=== PATIENT | male | born 1945 | race Asian ===

== ENCOUNTER 2016-08-10 20:40 | Inpatient (IN) | payer OTHER, BC ==
--- NOTE | 2016-08-10 20:47 | PDOC ---
History of Present Illness <Angelika Hunt - Last Filed: 08/10/16 22:07> - General History Source: Patient, Spouse () Exam Limitations: No Limitations, Other - History of Present Illness Initial Comments: 08/10/16 21:10 The patient is a 71 year old male with significant past medical history of COPD , CAD, systolic CHF (mild systolic dysfunction), pulmonary HTN, ESRD (HD MWF), AVF left arm, NIDDM who presents to the ED with tongue swelling and difficulty swallowing prior to arrival. As per , at bedside, patient had dinner around 6pm and subsequently went to bed. Around 7:40 pm she heard strange sounds coming from the patient and initially ignored him because he normally snores and makes sounds while sleeping. However, after the second time she looked over to check on him and noted his mouth was open and his tongue was significantly swollen. She woke the patient up states patient had complaints of difficulty swallowing. reports inability to speak secondary to tongue swelling. denies any facial droop, SOB, and changes in food intake. states patient had goat for dinner. She states he started mirtazapine about 1 month ago and given him a dose of mirtazapine prior to going to bed. The patient denies fever, chills, cough, chest pain, and palpitations. The patient denies abdominal pain, nausea, vomiting, and diarrhea. Allergies: NKDA Social History: former smoker quit smoking 96 h/o 30 years smoking Past Surgical History: Cardiac catheterization (2011) PCP: Dr. Triston Oliver <Sharon Witt - Last Filed: 08/11/16 03:57> - General Stated Complaint: UNABLE TO SPEAK Past History - Past Medical History Anemia: No Asthma: No Cancer: No Cardiac Disorders: Yes (CAD) CVA: No COPD: Yes (EMPHYSEMA) CHF: No Dementia: No Diabetes: Yes (DM2) Dialysis: Yes (M-W-F) GI Disorders: No Disorders: No HTN: Yes Hypercholesterolemia: Yes Liver Disease: No Seizures: No Thyroid Disease: No - Surgical History Abdominal Surgery: No Appendectomy: No Cardiac Surgery: Yes (ANGIOGRAPHY 2008 IN [facility]) Cholecystectomy: No Lung Surgery: No Neurologic Surgery: No Orthopedic Surgery: No - Immunization History Immunization Up to Date: Yes - Psycho/Social/Smoking Cessation Hx Anxiety: No Suicidal Ideation: No Smoking History: Former smoker Have you smoked in the past 12 months: No If you are a former smoker, when did you quit?: 1995 'Breaking Loose' booklet given: 09/05/15 Hx Alcohol Use: No Drug/Substance Use Hx: No Substance Use Type: None Hx Substance Use Treatment: No <Angelika Hunt - Last Filed: 08/10/16 22:07> <Sharon Witt - Last Filed: 08/11/16 03:57> - Past Medical History Allergies/Adverse Reactions: Allergies Allergy/AdvReac Type Severity Reaction Status Date / Time No Known Drug Allergies Allergy Verified 08/10/16 20:48 Home Medications: Ambulatory Orders Allopurinol [Zyloprim -] 100 mg PO DAILY 08/10/16 Aspirin [ASA -] 81 mg PO ASDIR 08/10/16 Calcium Acetate [Phoslo -] 667 mg PO TID 08/10/16 Carvedilol [Coreg -] 6.25 mg PO BID 08/10/16 Cinacalcet HCl [Sensipar] 30 mg PO DAILY 08/10/16 Lipase/Protease/Amylase [Zenpep Dr 25,000 Units Capsule] 1 each PO DAILY Losartan Potassium [Cozaar -] 25 mg PO DAILY 08/10/16 Multivit-Min/FA/Lycopen/Lutein [Centrum Silver Tablet] 1 each PO DAILY 08/10/16 Tamsulosin HCl [Flomax] 0.4 mg PO DAILY 08/10/16 Torsemide [Demadex] 50 mg PO BID 08/10/16 Vit C/Vit E AC/Lut/Copper/Zinc [Preservision Softgel] 1 each PO DAILY 08/10/16 Review of Systems - Review of Systems Able to Perform ROS?: Yes Comments:: 08/10/16 21:10 CONSTITUTIONAL: Absent: fever, chills, diaphoresis, generalized weakness, malaise, loss of appetite HEENT: +tongue swelling, difficulty swallowing, inability to speak Absent: rhinorrhea, nasal congestion, throat pain, throat swelling, ear pain, eye pain, visual Changes CARDIOVASCULAR: Absent: chest pain, syncope, palpitations, irregular heart rate, lightheadedness , peripheral edema RESPIRATORY: Absent: cough, shortness of breath, dyspnea with exertion, orthopnea, wheezing, stridor, hemoptysis GASTROINTESTINAL: Absent: abdominal pain, abdominal distension, nausea, vomiting, diarrhea, constipation, melena, hematochezia GENITOURINARY: Absent: dysuria, frequency, urgency, hesitancy, hematuria, flank pain, genital pain MUSCULOSKELETAL: Absent: myalgia, arthralgia, joint swelling SKIN: Absent: rash, itching, pallor NEUROLOGIC: Absent: headache, focal weakness or paresthesias, dizziness, unsteady gait, seizure, mental status changes, bladder or bowel incontinence PSYCHIATRIC: Absent: anxiety, depression, suicidal or homicidal ideation, hallucinations. <Sharon Witt - Last Filed: 08/11/16 03:57> *Physical Exam - Vital Signs Last Vital Signs Temp Pulse Resp BP Pulse Ox 81 18 143/79 94 L 08/10/16 20:48 08/10/16 20:48 08/10/16 20:48 08/10/16 20:48 - Physical Exam Comments: 08/11/16 00:53 GENERAL: Pt is afebrile. Well developed, well nourished. Awake and alert. No acute distress. HEENT: Normocephalic, atraumatic. PERRLA, EOMI. No conjunctival pallor. Sclera are non- icteric. Moist mucous membranes. tongue swollen, slight diversion of tongue to the left, slurred speech secondary questionable enlarge swollen tongue vs swollen vocal cords. TM white and abnormal bilaterally. NECK: Supple. Full ROM. No JVD. Carotid pulses 2+ and symmetric, without bruits. No thyromegaly. No lymphadenopathy. CARDIOVASCULAR: Regular rate and rhythm. No murmurs, rubs, or gallops. Distal pulses are 2+ and symmetric. PULMONARY: No evidence of respiratory distress. No accessory muscle use. Lungs clear to auscultation bilaterally. No wheezing, rales or rhonchi. ABDOMINAL: Soft. Non-tender. Non-distended. No rebound or guarding. No organomegaly. Normoactive bowel sounds. MUSCULOSKELETAL Normal range of motion at all joints. No bony deformities or tenderness. No CVA tenderness. EXTREMITIES: No cyanosis. No clubbing. No edema. No calf tenderness. SKIN: Warm and dry. Normal capillary refill. No rashes. No jaundice. NEUROLOGICAL: AOx3. Answering questions, however difficult to comprehend due to garbled speech. Following commands. Moving all extremities. Strength intact. Sensation intact. PSYCHIATRIC: Cooperative. Good eye contact. Appropriate mood and affect. <Sharon Witt - Last Filed: 08/11/16 03:57> Heart Score/ECG Review - ECG Impressions Comment:: 08/11/16 03:56 NSR @80bpm Possible left atrial enlargement RBBB T wave abnormality, consider inferior ischemia Abnormal ECG <MaximilianofaviolablakeSharon - Last Filed: 08/11/16 03:57> Critical Care Time/MDM Note - Medical Decision Making Note: 08/10/16 21:53 Pt came with stroke symptoms of difficulty speaking, however, on exam pt has swollen tongue and states that it is difficult to swallow his saliva. Pt was given his usual nightly dose of mirtazapine after dinner and he had no other allergy inducing foods. Pt was treated with subcutaneous epinephrine and benadryl and solumedrol. Anesthesia was consulted and he feels that pt's airway is not at risk for closing down at this Case d/w Dr. Quoc dean, who feels that vocal cord paralysis is unlikely due to a SENIOR PROGRAM ANALYST process; not something we would administer tpa for; also pt is outside of the window for tpa administration. <Angelika Hunt - Last Filed: 08/10/16 22:07> Total Critical Care Time: 60 Critical Care Statement: The care of this patient involved high complexity decision making to prevent further life threatening deterioration of the patient 's condition and/or to evalute & treat vital organ system(s) failure or risk of failure. - Medical Decision Making Note: 08/10/16 21:[address] Triston Oliver (via answering service) at 21:28 Awaiting call back Patient's case discussed with Dr. Oliver at 21:32 Paged the anesthesiologist instructional technology director and states he is coming to the ER to evaluate the patient 08/10/16 21:41 CT/HEAD CT (STROKE) Radiologist's Impression: No evidence of intracranial hemorrhage. There is no discrete infarct within the limitations of CT. No gross mass lesion is identified. There is no extra-axial fluid collection. The ventricles and cisterns appear unremarkable. Mild involutional changes. Atherosclerotic vascular calcifications. Impression: No definite CT evidence of acute intracranial pathology. CT/SOFT TISSUE NECK CT W/O CONTR Radiologist's Impression: Neck soft tissue CT without contrast Clinical information: tongue swelling, gurgling; allergy Multiplanar imaging was performed. As requested intravenous contrast was not administered. Tongue swelling identified clinically is difficult to appreciate on this exam. The uvula is difficult to evaluate due to respiratory motion artifact. The right pyriform sinus appears mildly dilated compared to the left which may be on the basis of normal variation versus secondary to right-sided unilateral vocal cord paralysis. ENT evaluation is suggested as well as chest CT. No fluid collection , mass lesion or lymphadenopathy is seen on noncontrast imaging. The superficial lobes of the parotid glands appear mildly asymmetric, the left being mildly more prominent than the right. This finding may be chronic or acute in nature. Correlate clinically. The prevertebral and retropharyngeal soft tissue planes appear unremarkable in thickness. The subglottis and cervical trachea demonstrate no obvious abnormality. No thyroid enlargement is visualized. Small calcifications are noted within the palatine tonsils bilaterally consistent with the sequela of previous inflammation/infection. Centrilobular emphysema is noted within the partially imaged pulmonary apices. Impression: tongue swelling identified on clinical examination is difficult to appreciate on CT. There is no associated airway compromise. Possible right- sided unilateral vocal cord paralysis. Mild asymmetry of the parotid glands with the left parotid gland being mildly more prominent in the right. This appearance may be chronic or acute. Mild to moderate bilateral chronic maxillary sinusitis. 08/10/16 21:[address] Mo Kumari (via answering service) at 21:54 Awaiting call back Patient's case discussed with Dr. Kumari at 21:55 <Sharon Witt - Last Filed: 08/11/16 03:57> Discharge Disposition - Discharge Dispostion Admit: Yes <Angelika Hunt - Last Filed: 08/10/16 22:07> - Post Discharge Activity Activity Comments: Documentation prepared by Sharon Witt, acting as emergency medical service manager for Angelika Hunt MD <Sharon Witt - Last Filed: 08/11/16 03:57> - Diagnosis Cerebrovascular accident (CVA), Angioedema, Vocal cord paralysis - Discharge Dispostion Condition at time of disposition: Guarded - Referrals
[2016-08-10 20:49] VITALS: BMI 26.6
[2016-08-10] MEDS ORDERED: EPINEPHrine 1:1,000 1 MG/1 ML - 30ML VIAL (INJECTION) SQ ONE (20:55)
[2016-08-10] MEDS ORDERED: methylPREDNISolone NA SUCC 125 MG/2 ML VIAL IVPB ONE (20:57)
[2016-08-10] MEDS ORDERED: methylPREDNISolone NA SUCC 125 MG/2 ML VIAL ONE (21:23)
[2016-08-10] MEDS ORDERED: FAMOTIDINE 20 MG/50 ML IVPB 50 ML IVPB ONE ×2 (21:34→21:46)
[2016-08-10] MEDS ORDERED: RACEPINEPHRINE IH SOL 2.25% 11.25 MG/0.5 ML VIAL IH ONE (21:37)
[2016-08-10] MEDS ORDERED: ETOMIDATE 40 MG/20 ML VIAL IVPUSH ONE ×2 (21:39→21:46)
[2016-08-10] MEDS ORDERED: SUCCINYLCHOLINE CHLORIDE 200 MG/10 ML VIAL IVPUSH ONE (21:41)
[2016-08-10 21:42] LABS: BASOPHIL 1.3 % (0-2.0); EOSINOPHIL 6.2 % (0-4.5); MCH 29.8 pg (25.7-33.7); MEAN CELL VOLUME 93.2 fl (80-96); NEUTROPHILS 66.3 % (42.8-82.8); PLATELET COUNT 175 K/MM3 (134-434); WHITE BLOOD COUNT 8.7 K/mm3 (4.0-10.0)
[2016-08-10] MEDS ORDERED: RACEPINEPHRINE IH SOL 2.25% 11.25 MG/0.5 ML VIAL NEB ONE (21:46)
[2016-08-10] MEDS ORDERED: SUCCINYLCHOLINE CHLORIDE 200 MG/10 ML VIAL ONE (21:48)
[2016-08-10] MEDS ORDERED: RAPID SEQUENCE INTUBATION KIT NR ONE (21:50)
[2016-08-10 21:57] LABS: INR 1.12 (0.82-1.09); PROTHROMBIN TIME (PATIENT) 12.3 SEC (9.98-11.88)
[2016-08-10 22:12] LABS: ALBUMIN 3.4 g/dl (3.4-5.0); CALCIUM 8.4 mg/dL (8.5-10.1); CREATININE 7.3 mg/dL (0.7-1.3)
[2016-08-10 22:16] LABS: BILIRUBIN,TOTAL 1.3 mg/dL (0.2-1.0); TOT PROT 7.5 g/dl (6.4-8.2)
[2016-08-10 22:33] LABS: TROPONIN I 0.15 ng/ml (0.00-0.05)
--- NOTE | 2016-08-10 23:03 | CONSULT ---
Consult Consult Specialty:: Pulm/CC - History of Present Illness History of Present Illness: Pt is a 71yr old man with PMHx of COPD, pulm HTN, HTN, CAD, CHF, ESRD (on HD M/W /), DM, enlarged prostate and gout. Per pt was found to have a pancreatic cyst in June but has refused biopsy. He presents to the ER with CC of acute tongue swelling and aphasia. In the ER pt received H1/H2 charles, epi and solu- medrol. CT of neck without noted airway compromise. Per family at bedside, pt with chronic left side facial droop but aphasia/tongue swelling is new. Family denies new food, endorses starting mirtazapine about one month ago. They state that pt was in his usual state of health around 1800 when he ate dinner. He then went to sleep and was noted to have "gurgling" sound with snoring and a swollen tongue around 1940. Pt received 2315, upon assessment pt with left side facial droop and aphasia. Pt denies chest pain/headache/sob. - History Source History Provided By: Patient, Family Member, Medical Record Limitations to Obtaining History: Clinical Condition - Past Medical History Cardio/Vascular: Yes: CAD, HTN Pulmonary: Yes: COPD Renal/: Yes: Renal Failure, Hemodialysis Endocrine: Yes: Diabetes Mellitus - Past Surgical History Past Surgical History: Yes: AV Fistula/Graft - Alcohol/Substance Use Hx Alcohol Use: No History of Substance Use: reports: None - Smoking History Smoking history: Former smoker Have you smoked in the past 12 months: No If you are a former smoker, when did you quit?: 1995 - Social History ADL: Independent History of Recent Travel: No Home Medications - Allergies Allergies/Adverse Reactions: Allergies Allergy/AdvReac Type Severity Reaction Status Date / Time No Known Drug Allergies Allergy Verified 08/10/16 20:48 - Home Medications Home Medications: Ambulatory Orders Allopurinol [Zyloprim -] 100 mg PO DAILY 08/10/16 Aspirin [ASA -] 81 mg PO ASDIR 08/10/16 Calcium Acetate [Phoslo -] 667 mg PO TID 08/10/16 Carvedilol [Coreg -] 6.25 mg PO BID 08/10/16 Cinacalcet HCl [Sensipar] 30 mg PO DAILY 08/10/16 Lipase/Protease/Amylase [Zenpep Dr 25,000 Units Capsule] 1 each PO DAILY Losartan Potassium [Cozaar -] 25 mg PO DAILY 08/10/16 Multivit-Min/FA/Lycopen/Lutein [Centrum Silver Tablet] 1 each PO DAILY 08/10/16 Tamsulosin HCl [Flomax] 0.4 mg PO DAILY 08/10/16 Torsemide [Demadex] 50 mg PO BID 08/10/16 Vit C/Vit E AC/Lut/Copper/Zinc [Preservision Softgel] 1 each PO DAILY 08/10/16 Review of Systems Unable to obtain ROS, reason: limited due to aphasia - Review of Systems Cardiovascular: denies: Chest Pain, Shortness of Breath Respiratory: denies: SOB Gastrointestinal: denies: Abdominal Pain Physical Exam Vital Signs: Vital Signs Period Temp Pulse Resp BP Sys/Macdonald Pulse Ox Last 24 Hr 81 18 143/79 94-96 Intake & Output 08/07/16 08/08/16 08/09/16 08/10/16 23:59 23:59 23:59 23:59 Weight 175 lb Constitutional: Yes: Well Nourished, Mild Distress Eyes: Yes: PERRL, Other (left side eye droop) HENT: Yes: Drooling, Other (left side facial droop, tongue edema) Cardiovascular: Yes: S1, S2 Respiratory: Yes: CTA Bilaterally, On Nasal O2, Other (no adventitious breath sounds appreciated) Gastrointestinal: Yes: Normal Bowel Sounds, Distention, Tenderness (diffuse) ...Rectal Exam: Yes: Deferred Extremities: Yes: WNL Edema: No Peripheral Pulses WNL: Yes (+2 bilateral pedal pulses) Integumentary: Yes: WNL Neurological: Yes: Aphasia, Facial Droop Psychiatric: Yes: WNL Labs: Abnormal Lab Results 08/10/16 08/10/16 08/10/16 21:15 21:15 21:15 RDW 18.0 H Monocytes % 15.2 H Eosinophils % 6.2 H BUN 37 H D Creatinine 7.3 H D Random Glucose 174 H D Calcium 8.4 L Total Bilirubin 1.3 H Alkaline Phosphatase 235 H Troponin I 0.15 H D Imaging - Results Chest X-ray: Image Reviewed Cat Scan: Report Reviewed Assessment/Plan Pt is a 71yr old man with PMHx of COPD, pulm HTN, HTN, CAD, CHF, ESRD (on HD M/ W/F) DM, gout and pancreatic cyst (pt refusing biopsy per ). Now in the ICU for management of acute angioedema with vocal cord paralysis. Pulm: -o2 support for sat >94% -Continuous pulse ox -Low threshold to intubate for airway protection Neuro: Head CT with no noted acute pathology -Consult -Per report, no indication for tpa -Neuro checks ENT: No airway compromise noted on CT neck. Partial vocal cord paralysis -Consult -s/p Benadryl, epi, Zantac, solu-medrol -Will continue iv steroid with taper, iv Benadryl Cardiac: Trop increase 0.02 --> 0.15 -Consult -- Pt sees Dr. Slaughter as outpatient - Trend troponin -F/U repeat EKG (per my read, EKG at 2330 similar to one from previous stay) -BP control, home bb ordered Renal: CKD on HD M/W/F -Consult -- Pt sees Dr. Sarah Marquez as outpatient -Renal dose medication -HD per renal -Continue home flomax -Continue phoslo/sensipar GI: Pancreatic cyst -Pt sees Dr. Lozano as outpatient -Continue home zenpep Rheum: hx of gout -Continue allopurinol Prophylactic -DVT -NPO pending clearance by ENT and speech and swallow eval -Aspiration precautions
[2016-08-10] MEDS ORDERED: TAMSULOSIN HCL 0.4 MG CAP.ER.24H (FP) PO ONE (23:32)
[2016-08-11] MEDS ORDERED: methylPREDNISolone NA SUCC 40 MG/1 ML VIAL IVPB ONE (03:00)
[2016-08-11 05:59] LABS: BASOPHIL 0.4 % (0-2.0); EOSINOPHIL 0.2 % (0-4.5); MCH 30.2 pg (25.7-33.7); MCHC 32.7 g/dl (32.0-35.9); MEAN CELL VOLUME 92.2 fl (80-96); PLATELET COUNT 154 K/MM3 (134-434); RDW 17.5 % (11.9-15.9); WHITE BLOOD COUNT 7.3 K/mm3 (4.0-10.0)
[2016-08-11 06:27] LABS: CALCIUM 8.1 mg/dL (8.5-10.1); MAGNESIUM 2.1 mg/dL (1.8-2.4)
[2016-08-11 06:48] LABS: BILIRUBIN,TOTAL 1.5 mg/dL (0.2-1.0); PHOSPHOROUS 4.4 mg/dL (2.5-4.9); TOT PROT 6.6 g/dl (6.4-8.2); TROPONIN I 0.11 ng/ml (0.00-0.05)
[2016-08-11 07:30] LABS: CREATININE 7.9 mg/dL (0.7-1.3)
--- NOTE | 2016-08-11 09:37 | HP ---
Admitting History and Physical - Primary Care Physician PCP: Triston Oliver - Admission Chief Complaint: CVA. ANGIOEDEMA - Past Medical History Cardiovascular: Yes: CAD, HTN Pulmonary: Yes: COPD Renal/: Yes: Renal Failure, Hemodialysis Endocrine: Yes: Diabetes Mellitus - Past Surgical History Past Surgical History: Yes: AV Fistula/Graft - Smoking History Smoking history: Former smoker Have you smoked in the past 12 months: No If you are a former smoker, when did you quit?: 1995 - Alcohol/Substance Use Hx Alcohol Use: No History of Substance Use: reports: None - Social History ADL: Independent History of Recent Travel: No Home Medications - Allergies Allergies/Adverse Reactions: Allergies Allergy/AdvReac Type Severity Reaction Status Date / Time No Known Drug Allergies Allergy Verified 08/10/16 20:48 - Home Medications Home Medications: Ambulatory Orders Allopurinol [Zyloprim -] 100 mg PO DAILY 08/10/16 Aspirin [ASA -] 81 mg PO ASDIR 08/10/16 Calcium Acetate [Phoslo -] 667 mg PO TID 08/10/16 Carvedilol [Coreg -] 6.25 mg PO BID 08/10/16 Cinacalcet HCl [Sensipar] 30 mg PO DAILY 08/10/16 Lipase/Protease/Amylase [Zenpep Dr 25,000 Units Capsule] 1 each PO DAILY Losartan Potassium [Cozaar -] 25 mg PO DAILY 08/10/16 Multivit-Min/FA/Lycopen/Lutein [Centrum Silver Tablet] 1 each PO DAILY 08/10/16 Tamsulosin HCl [Flomax] 0.4 mg PO DAILY 08/10/16 Torsemide [Demadex] 50 mg PO BID 08/10/16 Vit C/Vit E AC/Lut/Copper/Zinc [Preservision Softgel] 1 each PO DAILY 08/10/16 Review of Systems Findings/Remarks: UNABLE TO OBTAIN HISTORY. AT BEDSIDE. Physical Examination Vital Signs: Vital Signs Temperature 98.6 F 08/11/16 02:00 Pulse Rate 71 08/11/16 04:00 Respiratory Rate 19 08/11/16 08:52 Blood Pressure 133/77 08/11/16 04:00 O2 Sat by Pulse Oximetry (%) 96 08/11/16 08:52 Findings/Remarks: GETTING HD IN ICU Constitutional: Yes: Calm HENT: Yes: Other (ORAL SWELLING FEELS BETTER) Cardiovascular: Yes: Regular Rate and Rhythm, S1, S2 Respiratory: Yes: CTA Bilaterally, Other (NO STRIDOR) Gastrointestinal: Yes: Normal Bowel Sounds, Soft Edema: No Labs: CBC, BMP 08/11/16 05:05 08/11/16 05:05 Imaging - Results Cat Scan: Report Reviewed Problem List - Problems (1) Angioedema Code(s): T78.3XXA - ANGIONEUROTIC EDEMA, INITIAL ENCOUNTER (2) CAD (coronary artery disease) Code(s): I25.10 - ATHSCL HEART DISEASE OF [place] CORONARY ARTERY W/O ANG PCTRS Qualifiers: Coronary Disease-Associated Artery/Lesion type: [place] artery [place] vs. transplanted heart: [place] heart Associated angina: without angina Qualified Code(s): I25.10 - Atherosclerotic heart disease of [place] coronary artery without angina pectoris (3) Cerebrovascular accident (CVA) Code(s): I63.9 - CEREBRAL INFARCTION, UNSPECIFIED (4) CHF (congestive heart failure) Code(s): I50.9 - HEART FAILURE, UNSPECIFIED Qualifiers: Congestive heart failure type: systolic (5) COPD (chronic obstructive pulmonary disease) Code(s): J44.9 - CHRONIC OBSTRUCTIVE PULMONARY DISEASE, UNSPECIFIED Qualifiers : COPD type: unspecified COPD Qualified Code(s): J44.9 - Chronic obstructive pulmonary disease, unspecified (6) Diabetes Code(s): E11.9 - TYPE 2 DIABETES MELLITUS WITHOUT COMPLICATIONS Qualifiers: Diabetes mellitus type: type 2 Diabetes mellitus complication status: with kidney complications Diabetes mellitus complication detail: with nephropathy Diabetes mellitus nursing home insulin use: without terminal gauger supervisor use Qualified Code(s): E11.21 - Type 2 diabetes mellitus with diabetic nephropathy; Z79.4 - MCFP (current) use of insulin (7) ESRD (end stage renal disease) on dialysis Code(s): N18.6 - END STAGE RENAL DISEASE Z99.2 - DEPENDENCE ON RENAL DIALYSIS (8) Hypertension Code(s): I10 - ESSENTIAL (PRIMARY) HYPERTENSION Qualifiers: Hypertension type: essential hypertension Qualified Code(s): I10 - Essential (primary) hypertension Assessment/Plan The patient is a 71 year old male with significant past medical history of COPD , CAD, systolic CHF (mild systolic dysfunction), pulmonary HTN, ESRD (HD MWF), AVF left arm, NIDDM who presents to the ED with tongue swelling and difficulty swallowing prior to arrival. As per , at bedside, patient had dinner around 6pm and subsequently went to bed. Around 7:40 pm she heard strange sounds coming from the patient and initially ignored him because he normally snores and makes sounds while sleeping. However, after the second time she looked over to check on him and noted his mouth was open and his tongue was significantly swollen. She woke the patient up states patient had complaints of difficulty swallowing. reports inability to speak secondary to tongue swelling. denies any facial droop, SOB, and changes in food intake. states patient had goat for dinner. She states he started mirtazapine about 1 month ago and given him a dose of mirtazapine prior to going to bed. The patient denies fever, chills, cough, chest pain, and palpitations. The patient denies abdominal pain, nausea, vomiting, and diarrhea. Allergies: NKDA Social History: former smoker quit smoking 96 h/o 30 years smoking Past Surgical History: Cardiac catheterization (2011) PCP: Dr. Triston Oliver (1) Angioedema Code(s): T78.3XXA - ANGIONEUROTIC EDEMA, INITIAL ENCOUNTER IMPROVED IV STEROIDS ENT CONSULTED (2) CAD (coronary artery disease) Code(s): I25.10 - ATHSCL HEART DISEASE OF [place] CORONARY ARTERY W/O ANG PCTRS Qualifiers: Coronary Disease-Associated Artery/Lesion type: [place] artery [place] vs. transplanted heart: [place] heart Associated angina: without angina Qualified Code(s): I25.10 - Atherosclerotic heart disease of [place] coronary artery without angina pectoris TROP +margarita x 2 + INCed BNP CARDIO CONSULTED (3) Cerebrovascular accident (CVA) Code(s): I63.9 - CEREBRAL INFARCTION, UNSPECIFIED ? CTB NEG NEURO CONSULTED (4) CHF (congestive heart failure) Code(s): I50.9 - HEART FAILURE, UNSPECIFIED Qualifiers: Congestive heart failure type: systolic (5) COPD (chronic obstructive pulmonary disease) Code(s): J44.9 - CHRONIC OBSTRUCTIVE PULMONARY DISEASE, UNSPECIFIED Qualifiers : COPD type: unspecified COPD Qualified Code(s): J44.9 - Chronic obstructive pulmonary disease, unspecified IV STEROIDS PULM CONSULTED (6) Diabetes Code(s): E11.9 - TYPE 2 DIABETES MELLITUS WITHOUT COMPLICATIONS Qualifiers: Diabetes mellitus type: type 2 Diabetes mellitus complication status: with kidney complications Diabetes mellitus complication detail: with nephropathy Diabetes mellitus terminal gauger supervisor insulin use: without terminal gauger supervisor use Qualified Code(s): E11.21 - Type 2 diabetes mellitus with diabetic nephropathy; Z79.4 - bed bug exterminator (current) use of insulin BGM ISS (7) ESRD (end stage renal disease) on dialysis Code(s): N18.6 - END STAGE RENAL DISEASE Z99.2 - DEPENDENCE ON RENAL DIALYSIS IN HD RENAL CONSULTED (8) Hypertension Code(s): I10 - ESSENTIAL (PRIMARY) HYPERTENSION Qualifiers: Hypertension type: essential hypertension Qualified Code(s): I10 - Essential (primary) hypertension 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
[2016-08-11] MEDS ORDERED: DEXTROSE 5%-0.45% SALINE 1,000 ML IV SCH (09:45)
--- NOTE | 2016-08-11 09:50 | CONSULT ---
Consult Consult Specialty:: [facility] neurolog[facility] Reason for Consultation:: CVA - History of Present Illness History of Present Illness: 71 man with difficulty swallowing PMH 1. COPD, 2. CAD, 3. systolic 4. CHF (mild systolic dysfunction), 5. pulmonary HTN 6. , ESRD (HD MWF), 7. AVF left arm, 8. NIDDM Patient seen with in [facility] ICU Patient sees multiple specialist as OP and just had MUGA scan and was due for defirbilator Been on dialysis since 01/2015 - History Source History Provided By: Patient Limitations to Obtaining History: Clinical Condition - Past Medical History Cardio/Vascular: Yes: CAD, HTN Pulmonary: Yes: COPD Renal/: Yes: Renal Failure, Hemodialysis Endocrine: Yes: Diabetes Mellitus - Past Surgical History Past Surgical History: Yes: AV Fistula/Graft - Alcohol/Substance Use Hx Alcohol Use: No History of Substance Use: reports: None - Smoking History Smoking history: Former smoker Have you smoked in the past 12 months: No If you are a former smoker, when did you quit?: 1995 - Social History ADL: Independent History of Recent Travel: No Home Medications - Allergies Allergies/Adverse Reactions: Allergies Allergy/AdvReac Type Severity Reaction Status Date / Time No Known Drug Allergies Allergy Verified 08/10/16 20:48 - Home Medications Home Medications: Ambulatory Orders Allopurinol [Zyloprim -] 100 mg PO DAILY 08/10/16 Aspirin [ASA -] 81 mg PO ASDIR 08/10/16 Calcium Acetate [Phoslo -] 667 mg PO TID 08/10/16 Carvedilol [Coreg -] 6.25 mg PO BID 08/10/16 Cinacalcet HCl [Sensipar] 30 mg PO DAILY 08/10/16 Lipase/Protease/Amylase [Zenpep Dr 25,000 Units Capsule] 1 each PO DAILY Losartan Potassium [Cozaar -] 25 mg PO DAILY 08/10/16 Multivit-Min/FA/Lycopen/Lutein [Centrum Silver Tablet] 1 each PO DAILY 08/10/16 Tamsulosin HCl [Flomax] 0.4 mg PO DAILY 08/10/16 Torsemide [Demadex] 50 mg PO BID 08/10/16 Vit C/Vit E AC/Lut/Copper/Zinc [Preservision Softgel] 1 each PO DAILY 08/10/16 Family Disease History - Family Disease History Family History: Unable to Obtain Review of Systems - Review of Systems Constitutional: reports: No Symptoms Eyes: reports: No Symptoms Physical Exam-Neuro Vital Signs: Vital Signs Temperature 98.6 F 08/11/16 02:00 Pulse Rate 71 08/11/16 04:00 Respiratory Rate 19 08/11/16 08:52 Blood Pressure 133/77 08/11/16 04:00 O2 Sat by Pulse Oximetry (%) 96 08/11/16 08:52 Constitutional: Yes: Well Nourished Neck: Yes: WNL Labs: CBC, BMP 08/11/16 05:05 08/11/16 05:05 INR, PTT INR 1.12 (0.82-1.09) 08/10/16 21:15 - Neuro Exam Level Of Consciousness: Yes: Oriented to Person, Oriented to Place Eyes: Yes: PERRLA Speech: Garbled Dominant Hand: Right Cranial Nerves II-XII Intact: No (mild right facial droop) DTR's: 1+ Left Bicep, 1+ Right Bicep, 1+ Left Tricep, 1+ Right Tricep Response to light touch: Normal Response to pain prick: Normal Response to temperature: Normal Motor Strength: 3/5: Left Arm, Right Arm, Left Leg, Right Leg Imaging - Results Cat Scan: Image Reviewed Problem List - Problems (1) Cerebrovascular accident (CVA) Code(s): I63.9 - CEREBRAL INFARCTION, UNSPECIFIED Assessment/Plan ?? right MCA lacumnr stroke with left facial droop Repeat Head Ct in 48 hours 2. Ok to Steroids and antihistamine 3. Neuro check s 4. Statin 5. Echo 6. C Duplex 6. PT 7. SCD Thank you for the kind referral
[2016-08-11] MEDS ORDERED: LOSARTAN POTASSIUM 25 MG TABLET PO SCH (10:00)
[2016-08-11] MEDS ORDERED: methylPREDNISolone NA SUCC 40 MG/1 ML VIAL IVPB SCH (10:00)
[2016-08-11] MEDS ORDERED: PANTOPRAZOLE SODIUM 100 ML IVPB SCH (10:00)
[2016-08-11] MEDS: LIPASE/PROTEASE/AMYLASE 6,000 UNIT CAPSULE PO SCH ×3 (10:01→17:04)
[2016-08-11] MEDS: TORSEMIDE 20 MG TABLET (FP) PO SCH (10:01)
[2016-08-11] MEDS: CALCIUM ACETATE 667 MG CAPSULE (FP) PO SCH ×3 (10:01→17:04)
[2016-08-11] MEDS: ALLOPURINOL 100 MG TABLET (FP) PO SCH (10:02)
[2016-08-11] MEDS: CINACALCET HCL 30 MG TAB (FP) PO SCH (10:02)
[2016-08-11] MEDS: MULTIVITAMINS THER W-MINERALS COMBO TABLET (FP) PO SCH (10:02)
[2016-08-11] MEDS: CARVEDILOL 6.25 MG TABLET (FP) PO SCH ×2 (10:02→21:41)
--- NOTE | 2016-08-11 11:19 | CONSULT ---
Consult - text type - Consultation Consultation Note: Renal Consult for ESRD on HD This is a 71 year old Gentleman with PMhx of ESRD on HD (MWF), COPD, Hypertension, ACD, DM who presented with tounge swelling and difficulty talking and found to have angioedema. Pt started on Losartan two days ago. Pt developed tongue swelling when he was sleeping. No symptoms prior to that. No chest pain or sob. Last dialysis was Tuesday w/o complications. No flank pain, LIMON ,chest pain, N/V/D. No facial swelling. No rash. No recent Abx use. PMhx: as above Allergies: NKDA Family Hx: NC Social hx: Former smoker ROS: As per HPI Home Meds: Medication Instructions Recorded Allopurinol [Zyloprim -] 100 mg PO DAILY 08/10/16 Aspirin [ASA -] 81 mg PO ASDIR 08/10/16 Calcium Acetate [Phoslo -] 667 mg PO TID 08/10/16 Carvedilol [Coreg -] 6.25 mg PO BID 08/10/16 Cinacalcet HCl [Sensipar] 30 mg PO DAILY 08/10/16 Lipase/Protease/Amylase [Zenpep Dr 1 each PO DAILY 08/10/16 25,000 Units Capsule] Losartan Potassium [Cozaar -] 25 mg PO DAILY 08/10/16 Multivit-Min/FA/Lycopen/Lutein 1 each PO DAILY 08/10/16 [Centrum Silver Tablet] Tamsulosin HCl [Flomax] 0.4 mg PO DAILY 08/10/16 Torsemide [Demadex] 50 mg PO BID 08/10/16 Vit C/Vit E AC/Lut/Copper/Zinc 1 each PO DAILY 08/10/16 [Preservision Softgel] Vital Signs Temperature 97.4 F L 08/11/16 09:55 Pulse Rate 82 08/11/16 11:00 Respiratory Rate 17 08/11/16 11:00 Blood Pressure 144/82 08/11/16 11:00 O2 Sat by Pulse Oximetry (%) 96 08/11/16 08:52 Intake & Output 08/08/16 08/09/16 08/10/16 08/11/16 23:59 23:59 23:59 23:59 Intake Total 0 Output Total 0 Balance 0 0 Weight 175 lb 181 lb 4.8 oz Gen: NAD, awake and alert HEENT: NC/AT, + tongue swelling, Neck suppple, No JVD CVS: RRR, No M/R Lungs: CTA, no rales or wheeze Abd: soft NT/ND Ext: No edema, clubbing or cyanosis : No bladder distension Access: Left arm aVF CBC, BMP 08/11/16 05:05 08/11/16 05:05 Current Medications Allopurinol (Zyloprim -) 100 mg PO DAILY [facility] Last Admin: 08/11/16 10:02 Dose: Not Given Calcium Acetate (Phoslo -) 667 mg PO TIDCM [facility] Last Admin: 08/11/16 10:01 Dose: Not Given Carvedilol (Coreg -) 6.25 mg PO BID [facility] Last Admin: 08/11/16 10:02 Dose: Not Given Cinacalcet (Sensipar -) 30 mg PO DAILY [facility] Last Admin: 08/11/16 10:02 Dose: Not Given Pantoprazole Sodium (Protonix 40mg Ivpb (Pre-Docked)) 100 mls @ 200 mls/hr IVPB DAILY [facility] Dextrose/Sodium Chloride (D5-1/2ns -) 1,000 mls @ 83 mls/hr IV ASDIR [facility] Insulin Aspart (Novolog Vial Sliding Scale -) 1 vial SQ ACHS [facility] PRN Reason: Protocol Methylprednisolone Sodium Succinate (Solu-Medrol -) 40 mg IVPB Q8H-IV [facility] Multivitamins/Minerals (Theragran-M) 1 each PO DAILY [facility] Last Admin: 08/11/16 10:02 Dose: Not Given Pancrelipase (Creon Dr 6,000 Units Capsule) 4 cap PO TIDCM [facility] Last Admin: 08/11/16 10:01 Dose: Not Given Torsemide (Demadex -) 40 mg PO DAILY [facility] Last Admin: 08/11/16 10:01 Dose: Not Given A/p 71 year old Gentleman with PMhx of ESRD on HD ([facility]), COPD, Hypertension, ACD, DM who presented with tounge swelling and difficulty talking and found to have angioedema. #Angioedema secondary to Losartan Angioedema secondary to ARBs are uncommon but does occur Losartan discontinued on IV steroids ICU monitoring #ESRD/Hyperkalemia Currently getting HD with 2k bath Low K diet will continue HD on [facility] schedule #Hypertension Continue Coreg for now Trend BP #Renal Osteodystrophy Continue Sensipar Thank you will follow Franklyn Frazier DO
--- NOTE | 2016-08-11 11:53 | EKG ---
Test Reason : Blood Pressure : / mmHG Vent. Rate : 071 BPM Atrial Rate : 071 BPM P-R Int : 176 ms QRS Dur : 174 ms QT Int : 470 ms P-R-T Axes : 057 125 -31 degrees QTc Int : 510 ms NORMAL SINUS RHYTHM POSSIBLE LEFT ATRIAL ENLARGEMENT RIGHT BUNDLE BRANCH BLOCK T WAVE ABNORMALITY, CONSIDER LATERAL ISCHEMIA ABNORMAL ECG WHEN COMPARED WITH ECG OF 13-MAY-2016 19:26, T WAVE INVERSION LESS EVIDENT IN INFERIOR LEADS Confirmed by ANITHA PURCELL, HAY ([id number]) on 08/11/2016 11:53:36 AM Referred By: Confirmed By:HAY WELSH MD
--- NOTE | 2016-08-11 12:07 | PN ---
Teaching Attending Note Name of Resident: Dino Epstein ATTENDING PHYSICIAN STATEMENT I saw and evaluated the patient. I reviewed the resident's note and discussed the case with the resident. I agree with the resident's findings and plan as documented. SUBJECTIVE: Pt seen and examined in the ICU. Tongue still swollen but denies shortness of breath or dysphagia. Dysarthric. OBJECTIVE: Last Vital Signs Temp Pulse Resp BP Pulse Ox 97.4 F L 79 15 140/69 96 08/11/16 09:55 08/11/16 12:00 08/11/16 12:00 08/11/16 12:00 08/11/16 08:52 Intake & Output 08/08/16 08/09/16 08/10/16 08/11/16 23:59 23:59 23:59 23:59 Intake Total 0 Output Total 0 Balance 0 0 Weight 175 lb 181 lb 4.8 oz Gen: breathing nonlabored HEENT: enlarged tongue with deviation to left. Heart: RRR Lung: clear to auscultation Abd: soft, nontender Ext: no edema CBC, BMP 08/11/16 05:05 08/11/16 05:05 Active Medications Allopurinol (Zyloprim -) 100 mg PO DAILY [facility] Last Admin: 08/11/16 10:02 Dose: Not Given Calcium Acetate (Phoslo -) 667 mg PO TIDCM [facility] Last Admin: 08/11/16 10:01 Dose: Not Given Carvedilol (Coreg -) 6.25 mg PO BID [facility] Last Admin: 08/11/16 10:02 Dose: Not Given Cinacalcet (Sensipar -) 30 mg PO DAILY [facility] Last Admin: 08/11/16 10:02 Dose: Not Given Dexamethasone Sodium Phosphate (Decadron Injection -) 8 mg IVPB Q8H-IV [facility] Diphenhydramine HCl (Benadryl Injection -) 50 mg IVPB Q6H-IV [facility] Heparin Sodium (Porcine) (Heparin -) 5,000 unit SQ BID [facility] Dextrose/Sodium Chloride (D5-1/2ns -) 1,000 mls @ 83 mls/hr IV ASDIR [facility] Famotidine/Sodium Chloride (Pepcid 20 Mg Premixed Ivpb -) 50 mls @ 100 mls/hr IVPB BID [facility] Insulin Aspart (Novolog Vial Sliding Scale -) 1 vial SQ ACHS [facility] PRN Reason: Protocol Multivitamins/Minerals (Theragran-M) 1 each PO DAILY [facility] Last Admin: 08/11/16 10:02 Dose: Not Given Pancrelipase (Creon Dr 6,000 Units Capsule) 4 cap PO TIDCM [facility] Last Admin: 08/11/16 10:01 Dose: Not Given Torsemide (Demadex -) 40 mg PO DAILY [facility] Last Admin: 08/11/16 10:01 Dose: Not Given ASSESSMENT AND PLAN: Angioedema likely from ARB r/o Vocal Cord Paralysis ESRD on HD Hyperkalemia LV Systolic Dysfunction Pulmonary HTN - decadron - standing antihistamines - HD per renal - monitor lytes - cardiology evaluation for CHF optimization without SOPHIE-I/ARB - monitor in ICU for airway compromise - keep NPO - DVT prophylaxis
[2016-08-11] MEDS ORDERED: ALBUTEROL SO4 0.083% IH SOL 2.5 MG/3 ML VIAL.NEB. NEB PRN (12:12)
[2016-08-11] MEDS: FAMOTIDINE 20 MG/50 ML IVPB 50 ML IVPB SCH ×2 (14:26→21:53)
[2016-08-11] MEDS: HEPARIN NA (PORCINE) 5,000 UNITS/ML 1ML VIAL SQ SCH ×2 (14:26→21:42)
[2016-08-11] MEDS: DEXAMETHASONE SOD PHOSPHATE 4 MG/1 ML VIAL IVPB SCH ×2 (14:28→17:23)
--- NOTE | 2016-08-11 14:49 | PN ---
Progress Note, Physician History of Present Illness: no issues overnight tongue swelling improved but still swollen speech improving but still having difficulty with large tongue - Current Medication List Current Medications: Active Medications Albuterol Sulfate (Ventolin 0.083% Nebulizer Soln -) 1 amp NEB Q4H PRN PRN Reason: SHORT OF BREATH/WHEEZING Allopurinol (Zyloprim -) 100 mg PO DAILY [facility] Last Admin: 08/11/16 10:02 Dose: Not Given Calcium Acetate (Phoslo -) 667 mg PO TIDCM [facility] Last Admin: 08/11/16 13:45 Dose: Not Given Carvedilol (Coreg -) 6.25 mg PO BID [facility] Last Admin: 08/11/16 10:02 Dose: Not Given Cinacalcet (Sensipar -) 30 mg PO DAILY [facility] Last Admin: 08/11/16 10:02 Dose: Not Given Dexamethasone Sodium Phosphate (Decadron Injection -) 8 mg IVPB Q8H-IV [facility] Diphenhydramine HCl (Benadryl Injection -) 50 mg IVPB Q6H-IV [facility] Heparin Sodium (Porcine) (Heparin -) 5,000 unit SQ BID [facility] Dextrose/Sodium Chloride (D5-1/2ns -) 1,000 mls @ 83 mls/hr IV ASDIR [facility] Famotidine/Sodium Chloride (Pepcid 20 Mg Premixed Ivpb -) 50 mls @ 100 mls/hr IVPB BID [facility] Insulin Aspart (Novolog Vial Sliding Scale -) 1 vial SQ ACHS [facility] PRN Reason: Protocol Multivitamins/Minerals (Theragran-M) 1 each PO DAILY [facility] Last Admin: 08/11/16 10:02 Dose: Not Given Pancrelipase (Creon Dr 6,000 Units Capsule) 4 cap PO TIDCM [facility] Last Admin: 08/11/16 13:45 Dose: Not Given Torsemide (Demadex -) 40 mg PO DAILY [facility] Last Admin: 08/11/16 10:01 Dose: Not Given - Objective Vital Signs: Vital Signs Temperature 97.4 F L 08/11/16 09:55 Pulse Rate 81 08/11/16 14:15 Respiratory Rate 19 08/11/16 14:15 Blood Pressure 147/62 08/11/16 14:15 O2 Sat by Pulse Oximetry (%) 96 08/11/16 08:52 Constitutional: Yes: No Distress Eyes: Yes: EOM Intact HENT: Yes: Atraumatic, Other (large tongue no stridor) Neck: Yes: Trachea Midline Cardiovascular: Yes: Regular Rate and Rhythm Respiratory: Yes: Other (crackles bilaterally) Gastrointestinal: Yes: Soft Edema: No ...Motor Strength: WNL Labs: CBC, BMP 08/11/16 05:05 08/11/16 05:05 INR, PTT INR 1.12 (0.82-1.09) 08/10/16 21:15 - ....Imaging Chest X-ray: Report Reviewed, Image Reviewed Cat Scan: Report Reviewed, Image Reviewed Assessment/Plan 71M PMHx of COPD, pulm HTN, HTN, CAD, CHF, ESRD (on HD M/W/F) DM, gout and pancreatic cyst (pt refusing biopsy per ). Now in the ICU for management of acute angioedema with vocal cord paralysis. patient started on losartan 2 days prior to presentation. Angioedema: dysphagis likely secondary to tongue swelling improving but still significant tongue swelling ENT consulted CT neck reviewed no SOPHIE inhibitors or ARBs patient was on losartan change protonix to pepcid change solumedrol to decadron benadryl standing Keep NPO until safe to eat ESRD on HD will dialyze today hyperkalemia phoslo HTN: Coreg torsemide hold ARB Cardiology consult for optimization without ARB CHF:LV Systolic Dysfunction continue torsemide not clinically in exacerbation cardiology consult gout: continue allopurinol FEN: no fluids hyperkalemia NPO until angioedema resolves PPx: HSQ Pepcid PT consult
[2016-08-11] MEDS: INSULIN SLIDING SCALE (NOVOLOG) 1 VIAL SQ SCH ×3 (14:50→21:53)
--- NOTE | 2016-08-11 18:30 | CONS ---
DATE OF CONSULTATION: 08/11/2016 TIME OF CONSULTATION: 1:45 to 2:50 p.m. LOCATION: Intensive Care Unit REQUESTED BY: Triston Oliver MD CHIEF COMPLAINT: 1. Sudden and severe swelling of the tongue. 2. Difficulty in speaking. Patient is a 71-year-old [place] gentleman with longstanding history of hypertension, hypertensive cardiovascular disease, insulin-dependent diabetes mellitus, end-stage renal disease, hypercholesterolemia, severe left ventricular systolic dysfunction, history of gout, congestive heart failure, chronic obstructive pulmonary disease, which at times requires oxygen. Patient apparently went to sleep after supper, and his found him making strange noises and went to check on him and noted that he had an extremely swollen tongue, was unable to speak and was brought to the emergency room. Was found to have severe angioedema. On questioning, patient's states that he ate his usual meal that included fish that he eats regularly; also, goat. The only recent change in medication has been the addition of losartan 25 mg p.o. daily, and on the day of admission, he took his 2nd dose. There is no history of chest pain or discomfort. There is no history of difficulty in breathing according to his who is a nurse. There was no shortness of breath reported. No history of PND or orthopnea. History of intermittent cough and expectoration. No history of palpitations, lightheadedness, dizziness, presyncope or syncope. There was no history of focal weakness. The states that patient recently had a MUGA scan and was told that his ejection fraction was 26%, and he is being scheduled to have an ICD for primary prophylaxis. Patient was treated in the emergency room with steroids and admitted to ICU for observation. He still has difficulty in speaking, and the tongue remains partially swollen. On questioning, there were no other areas of either urticaria or angioedema noted by his or documented in the emergency room. PAST HISTORY: 1. As mentioned in the history of present illness. 2. AV fistula involving the left upper extremity. 3. 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 Has 2 sons and 2 daughters who are healthy. Was a smoker from teenage years until the mid-90s, and according to his , smoked over 1 pack of cigarettes per day. He does not drink ALCOHOL; in fact, is allergic to it. Has a cup of coffee, and there is no history of drug use. FAMILY HISTORY: Father in his early 70s of a cerebrovascular accident. Was both hypertensive and diabetic. Mother in her 80s of a probable myocardial infarction, and she also suffered from hypertension and diabetes mellitus. He had 4 brothers and 4 sisters, and except for 1 sister, all of them are and all suffered from both diabetes and hypertension and either of cerebrovascular accident or myocardial infarction. The sister who is alive is a diabetic. ALLERGIES: ALCOHOL. MEDICATIONS: Prior to admission were as follows: 1. Allopurinol 100 mg p.o. daily. 2. Carvedilol 6.25 mg p.o. b.i.d. 3. Aspirin 81 mg p.o. daily. 4. PhosLo 667 mg p.o. t.i.d. with meals. 5. Sensipar 30 mg p.o. daily. 6. Lipase/proteinase/amylase 25,000 units p.o. daily. 7. Losartan 25 mg p.o. daily. 8. Multivitamin 1 p.o. daily. 9. Flomax 0.4 mg p.o. daily. 10. Demadex 50 mg p.o. b.i.d. 11. PreserVision 1 p.o. daily. REVIEW OF SYSTEMS: Constitutional: No history of chills, fever or night sweats. No history of unintentional weight loss. HEENT: No history of headaches. No history of blurred vision or diplopia reported. No history of epistaxis, hoarseness, tinnitus. According to his , she feels that he has some degree of deafness. Neck: No history of pain or swelling. Cardiovascular: See history of present illness. Respiratory: See history of present illness. History of intermittent cough and expectoration. Gastrointestinal: No history of nausea, melena, hematemesis. History of abdominal discomfort and was found to have cysts involving the pancreas. No history of change in bowel habits or recent abdominal discomfort. Neurological: No history of seizures, syncope, dizziness or focal weakness. On questioning, patient snores on a regular basis, and at times, the has checked his oxygen saturation and has found it to be in the upper 80%. Endocrine: See history of present illness. No history of intolerance to cold or warm weather reported. Musculoskeletal: History of gout. No history of osteoarthritis or arthralgias. No history of myalgia reported. PHYSICAL EXAMINATION: General: A 71-year-old gentleman who was undergoing dialysis was in no acute distress, was unable to speak, and his tongue still appeared to be swollen. There was slight pallor. No cyanosis, clubbing or jaundice. Vital signs: Blood pressure was 147/82 mmHg. Pulse was 81 beats per minute and regular. Respirations were 19 per minute. Weight was not recorded. HEENT/neck: Neck supple. Jugular venous distention was noted at 30 degrees. There was a slightly positive hepatojugular reflux. Carotids were 1-2+. Upstrokes grossly appeared to be normal. Unable to appreciate bruits. There was no thyromegaly. Trachea appeared midline. No masses were felt. Cardiovascular: PMI was in the 5th intercostal space. No heaves or thrills. S1 was normal. S2 was split. Heart sounds were distant. Unable to appreciate a murmur or gallops. Lungs: Decreased breath sounds at both bases. There was scattered expiratory wheezing. Abdomen: Obese, soft and nontender. No hepatosplenomegaly or palpable masses were felt. Bowel sounds were present. No bruits were appreciated. Extremities: No calf tenderness or dependent edema. Femoral pulses were 2+. Dorsalis pedis pulses were 2+. Posterior tibial pulses were 1+. There was an AV fistula involving the left upper extremity with an appropriate thrill and bruit. ECG August 10, 2016 revealed sinus rhythm with intraatrial conduction abnormality. There was complete right bundle branch block and possible left posterior hemiblock. QS pattern was noted in V2 and V3. Possibility of an anteroseptal wall myocardial infarction of indeterminate age cannot be excluded. There were diffuse ST- and T-wave abnormalities, especially involving the precordial leads. Previous ECG was not available. LABORATORY DATA: August 11, 2016: WBC count was 7300, hemoglobin was 13.8 g/dL, platelet count was 152,000. There was a slight shift to the left. Chemistry August 11, 2016: Sodium was 137. Potassium was 6.6 prior to dialysis. Chloride was 101. CO2 was 23 mmol/L. Urine was 44. Creatinine was 7.9 mg/dL. Random glucose was 251 mg/dL. Calcium was 8.1 mg/dL. Magnesium was 2.1. Alkaline phosphatase was slightly elevated at 189. Troponin levels were slightly elevated at 0.15 and 0.11. BNP was 71,901.33. Total bilirubin was 1.5. X-ray chest was reported to be a limited examination. Left lower lung zone obscured by the cardiac silhouette soft tissue of the chest. No evidence of CHF, pneumothorax, airspace opacities in the visualized lung field. IMPRESSION: 1. Angioedema of the glottis. Etiology: Most likely related to ARB (losartan). 2. History of coronary artery disease. 3. Insulin-dependent diabetes mellitus 4. End-stage renal disease, hemodialysis dependent. 5. Severe left ventricular dysfunction. EF reported to be less than 30%. 6. History of gout. 7. History of congestive heart failure with significant elevation of BNP. 8. Hypertension, hypertensive cardiovascular disease, currently normotensive. 9. Chronic obstructive pulmonary disease (oxygen dependent). 10. Complete right bundle branch block and probable left posterior hemiblock. 11. History of hypercholesterolemia (in the past). 12. Obstructive sleep apnea needs exclusion. 13. Exogenous obesity. RECOMMENDATIONS: 1. Concur with discontinuing losartan. 2. Continue other cardiac therapy, and dose of carvedilol could be increased further provided blood pressure remains stable. 3. Patient is scheduled to have an ICD on August 24 for primary prophylaxis. 4. According to , patient snores a lot and also has somnolence during the daytime. 5. Patient should carry antihistamines and probably an EpiPen until underlying cause of angioedema is confirmed. I thank you for your referral. Yours sincerely, MILLICENT ARORA M.D. [id number] cc: Denny Slaughter MD
[2016-08-12] MEDS: DEXAMETHASONE SOD PHOSPHATE 4 MG/1 ML VIAL IVPB SCH ×2 (02:25→09:22)
[2016-08-12 06:04] LABS: MCH 29.6 pg (25.7-33.7); MCHC 32.3 g/dl (32.0-35.9); MEAN CELL VOLUME 91.7 fl (80-96); MEAN PLT VOLUME 8.5 fl (7.5-11.1); PLATELET COUNT 170 K/MM3 (134-434); RDW 17.3 % (11.9-15.9); WHITE BLOOD COUNT 11.4 K/mm3 (4.0-10.0)
[2016-08-12] MEDS: INSULIN SLIDING SCALE (NOVOLOG) 1 VIAL SQ SCH (06:35)
[2016-08-12 08:04] LABS: ALBUMIN 2.9 g/dl (3.4-5.0); CALCIUM 8.6 mg/dL (8.5-10.1)
[2016-08-12 08:09] LABS: BILIRUBIN,TOTAL 1.5 mg/dL (0.2-1.0); CREATININE 5.5 mg/dL (0.7-1.3); TOT PROT 6.5 g/dl (6.4-8.2)
--- NOTE | 2016-08-12 08:19 | CONSULT ---
Consult Consult Specialty:: ENT Referred by:: Dr. Cedeño Reason for Consultation:: angioedema - History of Present Illness Chief Complaint: tongue swelling History of Present Illness: 71 yo M with significant PMH of CAD, CHF, COPD, HTN, DM, ESRD (hemodialysis) 2 days ago noted to snore, observed pt had markedly swollen tongue, unable to speak clearly brought to ER for further evaluation and management, pt had been on Losartan which was then discontinued breathing was never a problem, pt was handling his secretions well. since admission pt and his note significant improvement with tongue swelling reduced, speech clearer, pt had hemodialysis yesterday (Tuesday), given sips of clear liquids last night which he tolerated well. This morning he reports feeling better, no pain CT scan of neck showed no discrete mass. some asymmetry of pyriform sinuses noted and question of laryngeal paralysis raised on that basis - History Source History Provided By: Patient, Family Member, Medical Record Limitations to Obtaining History: No Limitations - Past Medical History Cardio/Vascular: Yes: CAD, HTN Pulmonary: Yes: COPD Renal/: Yes: Renal Failure, Hemodialysis Endocrine: Yes: Diabetes Mellitus - Past Surgical History Past Surgical History: Yes: AV Fistula/Graft - Alcohol/Substance Use Hx Alcohol Use: No History of Substance Use: reports: None - Smoking History Smoking history: Former smoker Have you smoked in the past 12 months: No If you are a former smoker, when did you quit?: 1995 - Social History ADL: Independent History of Recent Travel: No Home Medications - Allergies Allergies/Adverse Reactions: Allergies Allergy/AdvReac Type Severity Reaction Status Date / Time No Known Drug Allergies Allergy Verified 08/10/16 20:48 - Home Medications Home Medications: Ambulatory Orders Allopurinol [Zyloprim -] 100 mg PO DAILY 08/10/16 Aspirin [ASA -] 81 mg PO ASDIR 08/10/16 Calcium Acetate [Phoslo -] 667 mg PO TID 08/10/16 Carvedilol [Coreg -] 6.25 mg PO BID 08/10/16 Cinacalcet HCl [Sensipar] 30 mg PO DAILY 08/10/16 Lipase/Protease/Amylase [Zenpep Dr 25,000 Units Capsule] 1 each PO DAILY Losartan Potassium [Cozaar -] 25 mg PO DAILY 08/10/16 Multivit-Min/FA/Lycopen/Lutein [Centrum Silver Tablet] 1 each PO DAILY 08/10/16 Tamsulosin HCl [Flomax] 0.4 mg PO DAILY 08/10/16 Torsemide [Demadex] 50 mg PO BID 08/10/16 Vit C/Vit E AC/Lut/Copper/Zinc [Preservision Softgel] 1 each PO DAILY 08/10/16 Physical Exam-ENT Vital Signs: Vital Signs Temperature 98.4 F 08/12/16 02:00 Pulse Rate 60 08/12/16 06:00 Respiratory Rate 18 08/12/16 06:00 Blood Pressure 115/79 08/12/16 06:00 O2 Sat by Pulse Oximetry (%) 96 08/11/16 21:00 Constitutional: Yes: No Distress, Calm Head: Yes: WNL Eyes: Yes: WNL Nose: Yes: Other (nasal cannulae, anterior nasal mucosa dry, no blood or crusting) Nasal Passage: Yes: WNL Oral/Pharynx: Yes: Other (lips normal, upper and lower dentures, tongue minimally swollen anteriorly,Position 3 white coat/plaques suspect ernesto, mobile, buccal mucosa white plaques c/w ernesto, hard palate normal, soft palate elongated, uvula elongated, oropharyngeal apeture narrowed but patent, posterior pharyngeal wall normal, Voice clear, strong, no stridor or respiratory distress) Outer Ear: Yes: Other (cutaneous horn right superior pinna) Ear Canal: Yes: Cerumen (left ear) Tympanic Membrane: Yes: WNL (right ear, left side not visualized) Neck: Yes: WNL Respiratory: Yes: WNL Neurological: Yes: WNL, Alert Imaging - Results Chest X-ray: Report Reviewed (cardiomegaly) Cat Scan: Report Reviewed Ultrasound: Pending (carotid doppler) Problem List - Problems (1) Thrush, oral Assessment/Plan: pt has white plaques consistent with oral thrush involves tongue dorsum and bilateral buccal mucosa oropharynx appears clear Recommend: Nystatin Code(s): B37.0 - CANDIDAL STOMATITIS (2) Angioedema Assessment/Plan: 71 yo M with acute history of tongue swelling, no respiratory distress but unable to close mouth and rendered speech difficult Losartan suspected risk factor, discontinued significant clinical improvement since admission, airway patent, tolerated clear liquids side question of vocal cord paralysis raised based on CT finding of pyriform sinus asymmetry however, pts voice is clear and strong, does not suggest vocal cord paralysis bedside laryngoscopy in 1-2 days Recommend: advance diet as tolerated medical team to adjust antihypertensive medications outpatient allergy/immunology evaluation after discharge Code(s): T78.3XXA - ANGIONEUROTIC EDEMA, INITIAL ENCOUNTER Qualifiers: Encounter type: initial encounter Qualified Code(s): T78.3XXA - Angioneurotic edema, initial encounter (3) Maxillary sinusitis Assessment/Plan: CT scan findings of bilateral maxillary sinus mucosal thickening anterior rhinoscopy shows dry mucosa but no purulence further history reveals that patient underwent nasal polypectomy in also cannot smell (has smoke alarms at home) Recommend: nasal saline spray further evaluation for chronic rhinosinusitis and anosmia Thank you for consultation, Gilbert Lan MD FACS Code(s): J32.0 - CHRONIC MAXILLARY SINUSITIS Qualifiers: Chronicity: unspecified Qualified Code(s): J32.0 - Chronic maxillary sinusitis
[2016-08-12] MEDS ORDERED: PT OWN MED DRAWER 7, Y5N ONE (08:43)
[2016-08-12] MEDS: LIPASE/PROTEASE/AMYLASE 6,000 UNIT CAPSULE PO SCH (08:49)
[2016-08-12] MEDS: CALCIUM ACETATE 667 MG CAPSULE (FP) PO SCH (08:49)
[2016-08-12] MEDS: HEPARIN NA (PORCINE) 5,000 UNITS/ML 1ML VIAL SQ SCH (09:21)
[2016-08-12] MEDS: TORSEMIDE 20 MG TABLET (FP) PO SCH (09:21)
[2016-08-12] MEDS: FAMOTIDINE 20 MG/50 ML IVPB 50 ML IVPB SCH (09:21)
[2016-08-12] MEDS: ALLOPURINOL 100 MG TABLET (FP) PO SCH (09:22)
[2016-08-12] MEDS: MULTIVITAMINS THER W-MINERALS COMBO TABLET (FP) PO SCH (09:22)
[2016-08-12] MEDS: CARVEDILOL 6.25 MG TABLET (FP) PO SCH (09:22)
[2016-08-12 10:07] VITALS: BP 134/76; PULSE 62; TEMP 97.4
[2016-08-12] MEDS ORDERED: diphenhydrAMINE HCL 25 MG CAPSULE (FP) PO PRN (10:17)
--- NOTE | 2016-08-12 10:22 | DS ---
Physical Examination Vital Signs: Vital Signs Temperature 97.4 F L 08/12/16 10:00 Pulse Rate 62 08/12/16 10:00 Respiratory Rate 18 08/12/16 10:00 Blood Pressure 134/76 08/12/16 10:00 O2 Sat by Pulse Oximetry (%) 96 08/12/16 09:39 Constitutional: Yes: No Distress Eyes: Yes: WNL HENT: Yes: WNL Neck: Yes: WNL Cardiovascular: Yes: WNL Respiratory: Yes: WNL Gastrointestinal: Yes: WNL Renal/: Yes: WNL Musculoskeletal: Yes: WNL Extremities: Yes: WNL Edema: No Integumentary: Yes: WNL Wound/Incision: Yes: Clean/Dry Neurological: Yes: WNL ...Motor Strength: WNL Psychiatric: Yes: WNL Labs: CBC, BMP 08/12/16 05:05 08/12/16 05:05 Discharge Summary Reason For Visit: CVA/ANGIOEDEMA/VOCAL CORD PARALYSIS Current Active Problems Angioedema (Acute) Cerebrovascular accident (CVA) (Acute) Maxillary sinusitis (Acute) Thrush, oral (Acute) Vocal cord paralysis (Acute) Procedures: Principal: CT SCAN HEAD/NECK Other Procedures: LABS/ICU MONITORING Hospital Course: ADMITTED FOR ACUTE ANGIOEDEMA WITH DYSPHAGIA, GIVEN IV STEROIDS/HISTAMINE BLOCKERS, IMPROVED AND MONITORED, WILL F/U OUTPATIENT. Condition: Improved - Instructions Diet, Activity, Other Instructions: RENAL , LOW SODIUM. Referrals: Triston Oliver MD [Primary Care Provider] - Disposition: HOME - Home Medications Comprehensive Discharge Medication List: Ambulatory Orders Allopurinol [Zyloprim -] 100 mg PO DAILY 08/10/16 Aspirin [ASA -] 81 mg PO ASDIR 08/10/16 Calcium Acetate [Phoslo -] 667 mg PO TID 08/10/16 Carvedilol [Coreg -] 6.25 mg PO BID 08/10/16 Cinacalcet HCl [Sensipar] 30 mg PO DAILY 08/10/16 Lipase/Protease/Amylase [Zenpep Dr 25,000 Units Capsule] 1 each PO DAILY Losartan Potassium [Cozaar -] 25 mg PO DAILY 08/10/16 Multivit-Min/FA/Lycopen/Lutein [Centrum Silver Tablet] 1 each PO DAILY 08/10/16 Tamsulosin HCl [Flomax] 0.4 mg PO DAILY 08/10/16 Torsemide [Demadex] 50 mg PO BID 08/10/16 Vit C/Vit E AC/Lut/Copper/Zinc [Preservision Softgel] 1 each PO DAILY 08/10/16
[2016-08-12] MEDS ORDERED: predniSONE 20 MG TABLET (UD) PO SCH (10:30)
[2016-08-12] MEDS ORDERED: RANITIDINE HCL 150 MG TABLET (FP) PO SCH (10:30)
[2016-08-12] MEDS: CINACALCET HCL 30 MG TAB (FP) PO SCH (10:50)
--- NOTE | 2016-08-12 11:26 | PN ---
Progress Note, Physician History of Present Illness: no issues overnight tongue swelling improved/resolved - Current Medication List Current Medications: Active Medications Albuterol Sulfate (Ventolin 0.083% Nebulizer Soln -) 1 amp NEB Q4H PRN PRN Reason: SHORT OF BREATH/WHEEZING Allopurinol (Zyloprim -) 100 mg PO DAILY [facility] Last Admin: 08/12/16 09:22 Dose: 100 mg Calcium Acetate (Phoslo -) 667 mg PO TIDCM [facility] Last Admin: 08/12/16 08:49 Dose: 667 mg Carvedilol (Coreg -) 6.25 mg PO BID [facility] Last Admin: 08/12/16 09:22 Dose: 6.25 mg Cinacalcet (Sensipar -) 30 mg PO DAILY [facility] Last Admin: 08/12/16 10:50 Dose: Not Given Diphenhydramine HCl (Benadryl -) 25 mg PO Q6H PRN PRN Reason: FOR ITCHING Multivitamins/Minerals (Theragran-M) 1 each PO DAILY [facility] Last Admin: 08/12/16 09:22 Dose: 1 each Pancrelipase (Creon Dr 6,000 Units Capsule) 4 cap PO TIDCM [facility] Last Admin: 08/12/16 08:49 Dose: 4 cap Prednisone (Deltasone -) 40 mg PO DAILY [facility] Last Admin: 08/12/16 10:50 Dose: Not Given Ranitidine HCl (Zantac -) 150 mg PO BID [facility] Last Admin: 08/12/16 10:50 Dose: Not Given Torsemide (Demadex -) 40 mg PO DAILY [facility] Last Admin: 08/12/16 09:21 Dose: 40 mg - Objective Vital Signs: Vital Signs Temperature 97.4 F L 08/12/16 10:00 Pulse Rate 62 08/12/16 10:00 Respiratory Rate 18 08/12/16 10:00 Blood Pressure 134/76 08/12/16 10:00 O2 Sat by Pulse Oximetry (%) 96 08/12/16 09:39 Constitutional: Yes: No Distress Eyes: Yes: EOM Intact HENT: Yes: Atraumatic, Other (large tongue no stridor) Neck: Yes: Trachea Midline Cardiovascular: Yes: Regular Rate and Rhythm Respiratory: Yes: CTAB Gastrointestinal: Yes: Soft Edema: No ...Motor Strength: WNL Labs: CBC, BMP 08/12/16 05:05 08/12/16 05:05 INR, PTT INR 1.12 (0.82-1.09) 08/10/16 21:15 Assessment/Plan 71M PMHx of COPD, pulm HTN, HTN, CAD, CHF, ESRD (on HD M/W/F) DM, gout and pancreatic cyst (pt refusing biopsy per ). Now in the ICU for management of acute angioedema with vocal cord paralysis. patient started on losartan 2 days prior to presentation. stable for discharge Angioedema: dysphagis likely secondary to tongue swelling resolved ENT consult reviewed and appreciated can discharge home tolerating solid food ESRD on HD resume outpt dialysis oral thrush-nystatin swish and swallow HTN: Coreg torsemide hold ARB CHF: LV Systolic Dysfunction continue torsemide gout: continue allopurinol Discharge home
--- NOTE | 2016-08-12 11:45 | PN ---
Progress Note, Physician Chief Complaint: Events noted Post angioedema improving History of Present Illness: Patient was seen and examined in ICU. Awake and alert. Chart was reviewed Denies chest pain, SOB or palpitation - Current Medication List Current Medications: Active Medications Albuterol Sulfate (Ventolin 0.083% Nebulizer Soln -) 1 amp NEB Q4H PRN PRN Reason: SHORT OF BREATH/WHEEZING Allopurinol (Zyloprim -) 100 mg PO DAILY [facility] Last Admin: 08/12/16 09:22 Dose: 100 mg Calcium Acetate (Phoslo -) 667 mg PO TIDCM [facility] Last Admin: 08/12/16 08:49 Dose: 667 mg Carvedilol (Coreg -) 6.25 mg PO BID [facility] Last Admin: 08/12/16 09:22 Dose: 6.25 mg Cinacalcet (Sensipar -) 30 mg PO DAILY [facility] Last Admin: 08/12/16 10:50 Dose: Not Given Diphenhydramine HCl (Benadryl -) 25 mg PO Q6H PRN PRN Reason: FOR ITCHING Multivitamins/Minerals (Theragran-M) 1 each PO DAILY [facility] Last Admin: 08/12/16 09:22 Dose: 1 each Pancrelipase (Creon Dr 6,000 Units Capsule) 4 cap PO TIDCM [facility] Last Admin: 08/12/16 08:49 Dose: 4 cap Prednisone (Deltasone -) 40 mg PO DAILY [facility] Last Admin: 08/12/16 10:50 Dose: Not Given Ranitidine HCl (Zantac -) 150 mg PO BID [facility] Last Admin: 08/12/16 10:50 Dose: Not Given Torsemide (Demadex -) 40 mg PO DAILY [facility] Last Admin: 08/12/16 09:21 Dose: 40 mg - Objective Vital Signs: Vital Signs Temperature 97.4 F L 08/12/16 10:00 Pulse Rate 62 08/12/16 10:00 Respiratory Rate 18 08/12/16 10:00 Blood Pressure 134/76 08/12/16 10:00 O2 Sat by Pulse Oximetry (%) 96 08/12/16 09:39 Neck: Yes: Supple Cardiovascular: Yes: Regular Rate and Rhythm, S1, S2 Respiratory: Yes: CTA Bilaterally Gastrointestinal: Yes: Normal Bowel Sounds, Soft. No: Tenderness Edema: No Additional Findings/Remarks: Review of Systems Cardiovascular: As noted above Respiratory: denies: denies: Cough, SOB Gastrointestinal: denies: Nausea, Vomiting, Diarrhea, Constipation or Abdominal Discomfort Musculoskeletal: No Symptoms Reported Endocrine: No Symptoms Reported Labs: CBC, BMP 08/12/16 05:05 08/12/16 05:05 Problem List - Problems (1) Angioedema Code(s): T78.3XXA - ANGIONEUROTIC EDEMA, INITIAL ENCOUNTER Qualifiers: Encounter type: initial encounter Qualified Code(s): T78.3XXA - Angioneurotic edema, initial encounter (2) CAD (coronary artery disease) Code(s): I25.10 - ATHSCL HEART DISEASE OF [place] CORONARY ARTERY W/O ANG PCTRS Qualifiers: Coronary Disease-Associated Artery/Lesion type: [place] artery [place] vs. transplanted heart: [place] heart Associated angina: without angina Qualified Code(s): I25.10 - Atherosclerotic heart disease of [place] coronary artery without angina pectoris (3) COPD (chronic obstructive pulmonary disease) Code(s): J44.9 - CHRONIC OBSTRUCTIVE PULMONARY DISEASE, UNSPECIFIED Qualifiers : COPD type: unspecified COPD Qualified Code(s): J44.9 - Chronic obstructive pulmonary disease, unspecified (4) Diabetes Code(s): E11.9 - TYPE 2 DIABETES MELLITUS WITHOUT COMPLICATIONS Qualifiers: Diabetes mellitus type: type 2 Diabetes mellitus complication status: with kidney complications Diabetes mellitus complication detail: with nephropathy Diabetes mellitus halfway insulin use: without halfway use Qualified Code(s): E11.21 - Type 2 diabetes mellitus with diabetic nephropathy; Z79.4 - terminologist (current) use of insulin (5) ESRD (end stage renal disease) on dialysis Code(s): N18.6 - END STAGE RENAL DISEASE Z99.2 - DEPENDENCE ON RENAL DIALYSIS (6) Hyperlipidemia Code(s): E78.5 - HYPERLIPIDEMIA, UNSPECIFIED Qualifiers: Hyperlipidemia type: pure hypercholesterolemia Qualified Code(s): E78.0 - Pure hypercholesterolemia (7) Hypertension Code(s): I10 - ESSENTIAL (PRIMARY) HYPERTENSION Qualifiers: Hypertension type: essential hypertension Qualified Code(s): I10 - Essential (primary) hypertension Assessment/Plan 1. Angioedema due to ARB 2. CAD 3. Severe LV systolic dysfunction - await ICD 4. Insulin dependent DM 5. ESRD on HD 6. HTN 7. COPD 8. Hypercholesterolemia 9. Possible DEWEY PLAN: 1. Avoid ACEI or ARB 2. If need to use alternative medication, may consider Hydralazine 3. Continue Carvedilol 4. ICD scheduled for end of July 5. Recommend antihistamines and Epipen for emergent situation Discharge planning Patient is to follow up with Dr. Slaughter as outpatient Florencio Segundo MD
--- NOTE | 2016-08-12 11:56 | PN ---
Progress Note (short form) - Note Progress Note: Renal Follow up for ESRD Pt seen and examined in the ICU awake and alert tongue swelling improved no chest pain or sob s/p dialysis yesterday Vital Signs Temperature 97.4 F L 08/12/16 10:00 Pulse Rate 62 08/12/16 10:00 Respiratory Rate 18 08/12/16 10:00 Blood Pressure 134/76 08/12/16 10:00 O2 Sat by Pulse Oximetry (%) 96 08/12/16 09:39 Gen: NAD, awake and alert HEENT: NC/AT, + tongue swelling, Neck suppple, No JVD CVS: RRR, No M/R Lungs: CTA, no rales or wheeze Abd: soft NT/ND Ext: No edema, clubbing or cyanosis : No bladder distension Access: Left arm aVF CBC, BMP 08/12/16 05:05 08/12/16 05:05 A/p 71 year old Gentleman with PMhx of ESRD on HD (MWF), COPD, Hypertension, ACD, DM who presented with tounge swelling and difficulty talking and found to have angioedema. #Angioedema secondary to Losartan Angioedema secondary to ARBs are uncommon but does occur to avoid ARBS and ACEi going forward #ESRD/Hyperkalemia s/p dialysis as intpatient yesterday to resume regular dialysis as outpatient tomorrow #Renal Osteodystrophy Continue Sensipar Franklyn Frazier DO
--- NOTE | 2016-08-12 12:29 | PN ---
Teaching Attending Note Name of Resident: Dino Epstein ATTENDING PHYSICIAN STATEMENT I saw and evaluated the patient. I reviewed the resident's note and discussed the case with the resident. I agree with the resident's findings and plan as documented. SUBJECTIVE: Pt seen and examined in the ICU. Tongue swelling improving. No shortness of breath or chest pain. No dysphagia, tolerated PO this AM. OBJECTIVE: Last Vital Signs Temp Pulse Resp BP Pulse Ox 97.4 F L 62 18 134/76 96 08/12/16 10:00 08/12/16 10:00 08/12/16 10:00 08/12/16 10:00 08/12/16 09:39 Intake & Output 08/09/16 08/10/16 08/11/16 08/12/16 23:59 23:59 23:59 23:59 Intake Total 0 848 632 Output Total 0 Balance 0 848 632 Weight 175 lb 181 lb 4.8 oz 174 lb 1.6 oz Gen: NAD at rest Neck: no stridor HEENT: +thrush Heart: RRR Lung: decreased breath sounds at the bases Abd: soft, nontender Ext: no edema CBC, BMP 08/12/16 05:05 08/12/16 05:05 ASSESSMENT AND PLAN: Angioedema likely from ARB ESRD on HD Hyperkalemia LV Systolic Dysfunction Pulmonary HTN - complete prednisone course as outpt - continue antihistamines - nystatin swish and swallow - HD per renal - PO as tolerated - DVT prophylaxis - d/c planning
[2016-08-13 00:06] LABS: HEP B SURFACE AB Reactive (.)
[2016-08-14 00:06] LABS: GLOBULIN, TOTAL 3.1 g/dL (2.2-3.9); HOMOCYSTEINE (CARDIO) 15.3 umol/L (0.0-15.0); M-SPIKE Not Observed g/dL (Not Observed); TOTAL PROTEIN 6.1 g/dL (6.0-8.5)
--- NOTE | 2016-08-16 12:56 | EKG ---
Test Reason : Blood Pressure : / mmHG Vent. Rate : 080 BPM Atrial Rate : 080 BPM P-R Int : 176 ms QRS Dur : 162 ms QT Int : 430 ms P-R-T Axes : 058 102 -15 degrees QTc Int : 495 ms NORMAL SINUS RHYTHM POSSIBLE LEFT ATRIAL ENLARGEMENT RIGHT BUNDLE BRANCH BLOCK T WAVE ABNORMALITY, CONSIDER INFERIOR ISCHEMIA ABNORMAL ECG WHEN COMPARED WITH ECG OF 13-MAY-2016 19:26, NO SIGNIFICANT CHANGE WAS FOUND Confirmed by HOA PURCELL, SHIRLEY ([id number]) on 08/16/2016 12:56:32 PM Referred By: Confirmed By:SHIRLEY CAMARA MD
== END 2016-08-12 11:53 | disposition home or self-care (01) | DRG 915 ==
LOC: JER 20:40 → JERBED 22:34 → JICU 22:55
PROVIDERS: ADMIT Family Medicine; ATTEND Family Medicine
PROC: 5A1D00Z (ICD-10-PCS; principal; 2016-08-11)
DX: T78.3XXA Angioneurotic edema, initial encounter (principal); N18.6 End stage renal disease; I13.2 Hypertensive heart and chronic kidney disease with heart failure and with stage 5 chronic kidney disease, or end stage renal disease; K86.2 Cyst of pancreas; B37.0 Candidal stomatitis; I50.20 Unspecified systolic (congestive) heart failure; T46.5X5A Adverse effect of other antihypertensive drugs, initial encounter; J44.9 Chronic obstructive pulmonary disease, unspecified; I25.10 Atherosclerotic heart disease of native coronary artery without angina pectoris; Z87.891 Personal history of nicotine dependence; Z99.2 Dependence on renal dialysis; I27.2 Other secondary pulmonary hypertension; J38.01 Paralysis of vocal cords and larynx, unilateral; E11.21 Type 2 diabetes mellitus with diabetic nephropathy; Z79.4 Long term (current) use of insulin; N25.0 Renal osteodystrophy; R13.19 Other dysphagia; J32.0 Chronic maxillary sinusitis; R43.0 Anosmia
CPT/HCPCS: 36415; 70450-TC; 70490-TC; 71010-TC; 80053; 82140; 82150; 82550; 83090; 83690; 83735; 83880; 84100; 84155; 84165; 84484; 85025; 85610; 85651; 86038; 86140; 86593; 86618; 86704; 86706; 86708; 86803; 87254; 87340; 87804; 93005; 93010; 93306-TC; 93880-TC; 99285-25; J1644

== ENCOUNTER 2016-08-16 13:51 | Day surgery (SDC) | payer OTHER, BC ==
--- NOTE | 2016-08-16 16:25 | PDOC ---
History of Present Illness <Toyin Marcos - Last Filed: 08/16/16 17:13> - General History Source: Patient Exam Limitations: No Limitations - History of Present Illness Initial Comments: 08/16/16 16:51 The patient is a 71 year old male with PMHx of COPD, pulm HTN, HTN, CAD, CHF, ESRD (on HD M/W/F), DM, enlarged prostate and gout, who presents to the ED because his av fistula on the left arm is not working. Patient was unable to attend dialysis due to this issue. Patient has no other complaints and is healthy. PCP: Dr. Cuong Cortez <Carlton Marroquin - Last Filed: 08/16/16 17:15> - General Chief Complaint: Dialysis Shunt Problem Stated Complaint: PRE-OP Time Seen by Provider: 08/16/16 16:25 Past History - Past Medical History Anemia: No Asthma: No Cancer: No Cardiac Disorders: Yes (CAD) CVA: No COPD: Yes (EMPHYSEMA) CHF: No Dementia: No Diabetes: Yes (DM2) Dialysis: Yes (M-W-F LT ARM FISTULA) GI Disorders: No Disorders: No HTN: Yes Hypercholesterolemia: Yes Liver Disease: No Seizures: No Thyroid Disease: No - Surgical History Abdominal Surgery: No Appendectomy: No Cardiac Surgery: Yes (ANGIOGRAPHY 2008 IN [facility]) Cholecystectomy: No Lung Surgery: No Neurologic Surgery: No Orthopedic Surgery: No - Immunization History Immunization Up to Date: Yes - Psycho/Social/Smoking Cessation Hx Anxiety: No Suicidal Ideation: No Smoking History: Never smoked Have you smoked in the past 12 months: No If you are a former smoker, when did you quit?: 1995 Information on smoking cessation initiated: No 'Breaking Loose' booklet given: 09/05/15 Hx Alcohol Use: No Drug/Substance Use Hx: No Substance Use Type: None Hx Substance Use Treatment: No <Toyin Marcos - Last Filed: 08/16/16 17:13> <Carlton Marroquin - Last Filed: 08/16/16 17:15> - Past Medical History Allergies/Adverse Reactions: Allergies Allergy/AdvReac Type Severity Reaction Status Date / Time losartan Allergy angioedema Verified 08/16/16 13:59 Home Medications: Ambulatory Orders Aspirin [ASA -] 81 mg PO ASDIR 08/10/16 Multivit-Min/FA/Lycopen/Lutein [Centrum Silver Tablet] 1 each PO DAILY 08/10/16 Tamsulosin HCl [Flomax -] 0.4 mg PO DAILY 08/10/16 Vit C/Vit E AC/Lut/Copper/Zinc [Preservision Lutein Softgel] 1 each PO DAILY Allopurinol [Zyloprim -] 100 mg PO DAILY tablet 08/12/16 Calcium Acetate [Phoslo -] 667 mg PO TIDCM capsule 08/12/16 Carvedilol [Coreg -] 6.25 mg PO BID tablet 08/12/16 Cinacalcet HCl [Sensipar -] 30 mg PO DAILY tab 08/12/16 Lipase/Protease/Amylase [Duc Mccoy 6,000 Units Capsule] 4 cap PO TIDCM capsule. 08/12/16 Nystatin Oral Suspension - [Nystatin Oral Susp 810455 Units/5 ML -] 500,000 units PO Q6H #28 cup 08/12/16 Ranitidine [Zantac -] 150 mg PO BID #30 tablet 08/12/16 Torsemide [Demadex -] 40 mg PO BID 08/16/16 Review of Systems - Review of Systems Able to Perform ROS?: Yes Comments:: 08/16/16 16:51 GENERAL/CONSTITUTIONAL: No fever or chills. No weakness. HEAD, EYES, EARS, NOSE AND THROAT: No change in vision. No ear pain or discharge. No sore throat. CARDIOVASCULAR: No chest pain or shortness of breath. RESPIRATORY: No cough, wheezing, or hemoptysis. GASTROINTESTINAL: No nausea, vomiting, diarrhea or constipation. GENITOURINARY: No dysuria, frequency, or change in urination. MUSCULOSKELETAL: No joint or muscle swelling or pain. No neck or back pain. SKIN: No rash NEUROLOGIC: No headache, vertigo, loss of consciousness, or change in strength/ sensation. ENDOCRINE: No increased thirst. No abnormal weight change. HEMATOLOGIC/LYMPHATIC: No anemia, easy bleeding, or history of blood clots. ALLERGIC/IMMUNOLOGIC: No hives or skin allergy. <Carlton Marroquin - Last Filed: 08/16/16 17:15> *Physical Exam - Vital Signs Last Vital Signs Temp Pulse Resp BP Pulse Ox 98.3 F 73 18 156/100 100 08/16/16 13:59 08/16/16 13:59 08/16/16 13:59 08/16/16 13:59 08/16/16 13:59 - Physical Exam Comments: GENERAL: Awake, alert, and fully oriented, in no acute distress HEAD: No signs of trauma EYES: PERRLA, EOMI, sclera anicteric, conjunctiva clear ENT: Auricles normal inspection, hearing grossly normal, nares patent, oropharynx clear without exudates. Moist mucosa NECK: Normal ROM, supple, no lymphadenopathy, JVD, or masses LUNGS: Breath sounds equal, clear to auscultation bilaterally. No wheezes, and no crackles HEART: Regular rate and rhythm, normal S1 and S2, no murmurs, rubs or gallops ABDOMEN: Soft, nontender, normoactive bowel sounds. No guarding, no rebound. No masses EXTREMITIES: Normal range of motion, no edema. No clubbing or cyanosis. LUE AVF (-) thrill. NEUROLOGICAL: Cranial nerves II through XII grossly intact. Normal speech, normal gait SKIN: Warm, Dry, normal turgor, no rashes or lesions noted. <Toyin Marcos - Last Filed: 08/16/16 17:13> - Vital Signs Last Vital Signs Temp Pulse Resp BP Pulse Ox 98.3 F 73 18 156/100 100 08/16/16 13:59 08/16/16 13:59 08/16/16 13:59 08/16/16 13:59 08/16/16 13:59 <Carlton Marroquin - Last Filed: 08/16/16 17:15> ED Treatment Course - LABORATORY CBC & Chemistry Diagram: 08/16/16 17:02 08/16/16 17:02 <Toyin Marcos - Last Filed: 08/16/16 17:13> - LABORATORY CBC & Chemistry Diagram: 08/16/16 17:02 08/16/16 17:02 <Carlton Marroquin - Last Filed: 08/16/16 17:15> Medical Decision Making - Medical Decision Making 08/16/16 17:13 Case d/w Dr. Cortez. Patient's has arranged dialysis for her ([facility] is open until 11pm tonight), and prefers that he not be admitted for dialysis. Will dispo to [facility] for venogram, then DC home. <Toyin Marcos - Last Filed: 08/16/16 17:13> - Medical Decision Making 08/16/16 16:[address] Cuong Cortez (PCP). 08/16/16 17:[address] Cuong Cortez at 17:00. <Carlton Marroquin - Last Filed: 08/16/16 17:15> *DC/Admit/Observation/Transfer - Discharge Dispostion Admit: Yes <Toyin Marcos - Last Filed: 08/16/16 17:13> - Attestations Scribe Attestion: 08/16/16 16:52 Documentation prepared by Carlton Marroquin, acting as biomedical engineering aide for Toyin Marcos MD, MD. <Carlton Marroquin - Last Filed: 08/16/16 17:15> Diagnosis at time of Disposition: ESRD (end stage renal disease) on dialysis Complication of AV dialysis fistula Qualifiers: Encounter type: initial encounter Qualified Code(s): T82.9XXA - Unspecified complication of cardiac and vascular prosthetic device, implant and graft, initial encounter - Discharge Dispostion Condition at time of disposition: Stable - Referrals Referrals: Triston Oliver MD [Primary Care Provider] -
[2016-08-16 17:11] LABS: MCH 29.8 pg (25.7-33.7); MCHC 32.4 g/dl (32.0-35.9); MEAN CELL VOLUME 91.8 fl (80-96); MEAN PLT VOLUME 8.7 fl (7.5-11.1); PLATELET COUNT 145 K/MM3 (134-434); RDW 17.3 % (11.9-15.9); WHITE BLOOD COUNT 12.5 K/mm3 (4.0-10.0)
[2016-08-16 17:24] LABS: INR 1.1 (0.82-1.09); PROTHROMBIN TIME (PATIENT) 12.1 SEC (9.98-11.88)
[2016-08-16 17:42] LABS: ANISOCYTOSIS 1+; PLATELET ESTIMATE DECREASED (NORMAL)
[2016-08-16 18:42] LABS: ALBUMIN 3.2 g/dl (3.4-5.0); CALCIUM 8.3 mg/dL (8.5-10.1)
[2016-08-16 18:49] LABS: BILIRUBIN,TOTAL 1.6 mg/dL (0.2-1.0); TOT PROT 6.9 g/dl (6.4-8.2)
--- NOTE | 2016-08-16 19:42 | PN ---
Progress Note (short form) - Note Progress Note: Vascular Surgery Left avf with pulsatile flow. Will need venogram, possible thrombectomy. For OR today Cuong siu DO
[2016-08-16] MEDS ORDERED: MIDAZOLAM HCL 2 MG/2 ML SINGLE DOSE VIAL ONE ×2 (20:22)
[2016-08-16] MEDS ORDERED: ceFAZolin SODIUM 1 GM VIAL IVPB ONE (20:30)
[2016-08-16] MEDS ORDERED: PROPOFOL 20 ML ONE (20:33)
[2016-08-16] MEDS ORDERED: LIDOCAINE HCL 1%, 10 MG/ML (50 mL VIAL) IJ ONE (20:34)
[2016-08-16] MEDS ORDERED: ONDANSETRON 4 MG/2 ML VIAL IVPUSH PRN (21:28)
--- NOTE | 2016-08-16 21:35 | OP ---
Operative Note - Note: Operative Date: 08/16/16 Pre-Operative Diagnosis: clotted left avf Operation: venogram,suction thrombectomy, venoplasty left avf Post-Operative Diagnosis: Same as Pre-op Surgeon: Cuong Cortez Anesthesia: Fractional Estimated Blood Loss (mls): 75 Operative Report Dictated: Yes
[2016-08-17 00:36] VITALS: BMI 26.9
[2016-08-17 08:46] LABS: MCH 30.1 pg (25.7-33.7); MCHC 32.7 g/dl (32.0-35.9); MEAN PLT VOLUME 9.3 fl (7.5-11.1); PLATELET COUNT 121 K/MM3 (134-434); RDW 16.9 % (11.9-15.9); WHITE BLOOD COUNT 11.4 K/mm3 (4.0-10.0)
[2016-08-17 09:17] LABS: ALBUMIN 2.9 g/dl (3.4-5.0); BILIRUBIN,TOTAL 1.7 mg/dL (0.2-1.0); CALCIUM 8.3 mg/dL (8.5-10.1); TOT PROT 6.1 g/dl (6.4-8.2)
[2016-08-17 09:40] LABS: CREATININE 9.3 mg/dL (0.7-1.3)
--- NOTE | 2016-08-17 10:30 | CONSULT ---
Consult Consult Specialty:: Nephrology (Sarah Goel/ Franklyn Frazier) Referred by:: Dr. Emanuel Cortez Reason for Consultation:: ESRD patient admitted with Clotted AV fistula. Dr. Cortez declotted it. The patient has h/o ESRD on HD. the fistula was clotted when he came for dialysis yesterday. 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 Cardio/Vascular: Yes: CAD, HTN Pulmonary: Yes: COPD Renal/: Yes: Renal Failure, Hemodialysis Endocrine: Yes: Diabetes Mellitus - Past Surgical History Past Surgical History: Yes: AV Fistula/Graft - Alcohol/Substance Use Hx Alcohol Use: No History of Substance Use: reports: None - Smoking History Smoking history: Never smoked Have you smoked in the past 12 months: No If you are a former smoker, when did you quit?: 1995 - Social History ADL: Independent History of Recent Travel: No Home Medications - Allergies Allergies/Adverse Reactions: Allergies Allergy/AdvReac Type Severity Reaction Status Date / Time losartan Allergy angioedema Verified 08/16/16 13:59 - Home Medications Home Medications: Ambulatory Orders Aspirin [ASA -] 81 mg PO ASDIR 08/10/16 Multivit-Min/FA/Lycopen/Lutein [Centrum Silver Tablet] 1 each PO DAILY 08/10/16 Tamsulosin HCl [Flomax -] 0.4 mg PO DAILY 08/10/16 Vit C/Vit E AC/Lut/Copper/Zinc [Preservision Lutein Softgel] 1 each PO DAILY Allopurinol [Zyloprim -] 100 mg PO DAILY tablet 08/12/16 Calcium Acetate [Phoslo -] 667 mg PO TIDCM capsule 08/12/16 Carvedilol [Coreg -] 6.25 mg PO BID tablet 08/12/16 Cinacalcet HCl [Sensipar -] 30 mg PO DAILY tab 08/12/16 Lipase/Protease/Amylase [Duc Mccoy 6,000 Units Capsule] 4 cap PO TIDCM capsule. 08/12/16 Nystatin Oral Suspension - [Nystatin Oral Susp 734564 Units/5 ML -] 500,000 units PO Q6H #28 cup 08/12/16 Ranitidine [Zantac -] 150 mg PO BID #30 tablet 08/12/16 Torsemide [Demadex -] 40 mg PO BID 08/16/16 Review of Systems - Review of Systems Constitutional: reports: No Symptoms, Chills Neck: reports: No Symptoms Cardiovascular: reports: No Symptoms. denies: Chest Pain Gastrointestinal: reports: No Symptoms Genitourinary: reports: No Symptoms Neurological: reports: No Symptoms Physical Exam Vital Signs: Vital Signs Temperature 97.7 F 08/17/16 08:10 Pulse Rate 81 08/17/16 10:15 Respiratory Rate 18 08/17/16 10:15 Blood Pressure 149/75 08/17/16 10:15 O2 Sat by Pulse Oximetry (%) 96 08/17/16 08:00 Constitutional: Yes: Well Nourished, No Distress, Calm Eyes: Yes: WNL HENT: Yes: Atraumatic Neck: Yes: Trachea Midline Cardiovascular: Yes: Regular Rate and Rhythm, S1, S2 Respiratory: Yes: CTA Bilaterally Gastrointestinal: Yes: Normal Bowel Sounds, Soft Extremities: Yes: Other (AVF now with good bruit.) Neurological: Yes: Alert, Oriented Psychiatric: Yes: Alert, Oriented Labs: CBC, BMP 08/17/16 08:15 08/17/16 08:15 Problem List - Problems (1) Complication of AV dialysis fistula Code(s): T82.9XXA - UNSP COMP OF CARDIAC AND VASCULAR PROSTH DEV/GRFT, INIT Qualifiers: Encounter type: initial encounter Qualified Code(s): T82.9XXA - Unspecified complication of cardiac and vascular prosthetic device, implant and graft, initial encounter (2) ESRD (end stage renal disease) on dialysis Code(s): N18.6 - END STAGE RENAL DISEASE Z99.2 - DEPENDENCE ON RENAL DIALYSIS (3) Diabetes Code(s): E11.9 - TYPE 2 DIABETES MELLITUS WITHOUT COMPLICATIONS Qualifiers: Diabetes mellitus type: type 2 Diabetes mellitus complication status: with kidney complications Diabetes mellitus complication detail: with nephropathy Diabetes mellitus director child abuse therapy insulin use: without residential use Qualified Code(s): E11.21 - Type 2 diabetes mellitus with diabetic nephropathy; Z79.4 - intermediate (current) use of insulin (4) Hypertension Code(s): I10 - ESSENTIAL (PRIMARY) HYPERTENSION Qualifiers: Hypertension type: essential hypertension Qualified Code(s): I10 - Essential (primary) hypertension Assessment/Plan Patient will get HD using the AVF, and when discharged he will return to the HD unit for outpatient HD. Thank you. Sarah Goel MD
[2016-08-17 12:49] LABS: CALCIUM 8.2 mg/dL (8.5-10.1); CREATININE 3.5 mg/dL (0.7-1.3)
--- NOTE | 2016-08-17 12:52 | EKG ---
Test Reason : Blood Pressure : / mmHG Vent. Rate : 074 BPM Atrial Rate : 074 BPM P-R Int : 158 ms QRS Dur : 174 ms QT Int : 470 ms P-R-T Axes : 063 097 -17 degrees QTc Int : 521 ms NORMAL SINUS RHYTHM POSSIBLE LEFT ATRIAL ENLARGEMENT RIGHT BUNDLE BRANCH BLOCK T WAVE ABNORMALITY, CONSIDER INFERIOR ISCHEMIA ABNORMAL ECG WHEN COMPARED WITH ECG OF 10-AUG-2016 23:15, T WAVE VARIATION Confirmed by HOA PURCELL, SHIRLEY ([id number]) on 08/17/2016 12:52:20 PM Referred By: Confirmed By:SHIRLEY CAMARA MD
[2016-08-17 13:06] VITALS: BP 140/72; PULSE 78; TEMP 98
== END 2016-08-17 14:09 | disposition home or self-care (01) ==
LOC: JER 13:51 → JASUSAT 19:06 → J6S 21:41 → JASUSAT 08-17 14:09
PROVIDERS: ATTEND Surgery Vascular Surgery
PROC: 057Y3ZZ Dilation of Upper Vein, Percutaneous Approach (ICD-10-PCS; principal; 2016-08-16 19:00)
DX: T82.898A Other specified complication of vascular prosthetic devices, implants and grafts, initial encounter (principal); I12.0 Hypertensive chronic kidney disease with stage 5 chronic kidney disease or end stage renal disease
CPT/HCPCS: 36415; 76001-TC; 80048; 80053; 85025; 85027; 85610; 86850; 86900; 86901; 93005; 93010; 94760; 99283-25; G0463-25; J1644

== ENCOUNTER 2016-11-29 08:42 | Inpatient (IN) | payer OTHER, BC ==
[2016-11-29 08:48] VITALS: BMI 27.6
--- NOTE | 2016-11-29 09:31 | PDOC ---
History of Present Illness - General Chief Complaint: Pain Stated Complaint: ABD PAIN Time Seen by Provider: 11/29/16 09:06 History Source: Patient Exam Limitations: No Limitations - History of Present Illness Travel History: No Initial Comments: 11/29/16 09:26 71-year-old male brought in by for evaluation of abdominal distention worsening over the past 2 days now associated with increasing shortness of breath. Patient states history of pancreatic cyst and is followed by Dr. wilcox. Patient also receives dialysis Tuesday and is due today. Patient also with history of COPD and utilizes oxygen as needed at home which she had to use last night secondary to symptoms above. Patient denies chest pain, palpitations, fever, chills weakness, or lower extremity edema. Patient does state constipation for the past week without decreased flatulence or rectal bleeding. patient is followed by Dr. Mitchell for pulmonology and Dr. Marquez for dialysis. Timing/Duration: reports: getting worse Quality: reports: moderate Abdominal Pain Onset Location: reports: generalized abdomen Pain Radiation: reports: no radiation Activities at Onset: reports: none Aggravating Factors: improves with: None Alleviating Factors: improves with: None Past History - Past Medical History Allergies/Adverse Reactions: Allergies Allergy/AdvReac Type Severity Reaction Status Date / Time losartan Allergy angioedema Verified 11/29/16 08:45 Home Medications: Ambulatory Orders Aspirin [ASA -] 81 mg PO ASDIR 08/10/16 Multivit-Min/FA/Lycopen/Lutein [Centrum Silver Tablet] 1 each PO DAILY 08/10/16 Tamsulosin HCl [Flomax -] 0.4 mg PO DAILY 08/10/16 Vit C/Vit E AC/Lut/Copper/Zinc [Preservision Lutein Softgel] 1 each PO DAILY Allopurinol [Zyloprim -] 100 mg PO DAILY tablet 08/12/16 Calcium Acetate [Phoslo -] 667 mg PO TIDCM capsule 08/12/16 Cinacalcet HCl [Sensipar -] 30 mg PO DAILY tab 08/12/16 Torsemide [Demadex -] 40 mg PO BID 08/16/16 Carvedilol [Coreg -] 25 mg PO BID 11/29/16 Insulin Degludec [Tresiba Flextouch U-100] 10 unit SQ HS 11/29/16 Insulin Lispro [Humalog] 100 unit SQ ASDIR 11/29/16 Lipase/Protease/Amylase [Zenpep Dr 25,000 Units Capsule] 1 each PO TID 11/29/16 Omeprazole 20 mg PO BID 11/29/16 Anemia: No Asthma: No Cancer: No Cardiac Disorders: Yes (CAD) CVA: No COPD: Yes (EMPHYSEMA) CHF: No Dementia: No Diabetes: Yes (DM2) Dialysis: Yes (MON, WED, FRI) GI Disorders: No Disorders: No HTN: Yes Hypercholesterolemia: Yes Liver Disease: No Seizures: No Thyroid Disease: No Other medical history: GOUT - Surgical History Abdominal Surgery: No Appendectomy: No Cardiac Surgery: Yes (ANGIOGRAPHY 2009 IN [facility]) Cholecystectomy: No Lung Surgery: No Neurologic Surgery: No Orthopedic Surgery: No - Immunization History Immunization Up to Date: Yes - Psycho/Social/Smoking Cessation Hx Anxiety: No Suicidal Ideation: No Smoking History: Former smoker Have you smoked in the past 12 months: No If you are a former smoker, when did you quit?: 1995 Information on smoking cessation initiated: No 'Breaking Loose' booklet given: 09/05/15 Hx Alcohol Use: No Drug/Substance Use Hx: No Substance Use Type: None Hx Substance Use Treatment: No Patient Lives Alone: No Lives with/in: spouse/SO Review of Systems - Review of Systems Able to Perform ROS?: No Is the patient limited Sri [place]ankan proficient: No Constitutional: No: Symptoms Reported HEENTM: No: Symptoms Reported Respiratory: Yes: Cough, SOB with Exertion Cardiac (ROS): No: Symptoms Reported ABD/GI: Yes: Abdominal Distended, Constipated, Abdominal cramping Musculoskeletal: No: Symptoms Reported Integumentary: No: Symptoms Reported Hematologic/Lymphatic: Yes: See HPI *Physical Exam - Vital Signs Last Vital Signs Temp Pulse Resp BP Pulse Ox 96 F L 72 18 144/74 97 11/29/16 08:45 11/29/16 08:45 11/29/16 08:45 11/29/16 08:45 11/29/16 08:45 - Physical Exam General Appearance: Yes: Nourished, Appropriately Dressed. No: Apparent Distress HEENT: positive: EOMI, MARIAJOSE, TMs Normal, Scleral Icterus (R) (mild), Scleral Icterus (L) (mild). negative: Pale Conjunctivae Respiratory/Chest: positive: Accessory Muscle Use (mild intercostal), Rhonchi Cardiovascular: positive: Regular Rhythm, Regular Rate. negative: Murmur Vascular Pulses: Dorsalis-Pedis (R): 2+, Doralis-Pedis (L): 2+ Gastrointestinal/Abdominal: positive: Normal Bowel Sounds, Soft, Tenderness. negative: Guarding, Rebound, Mass Musculoskeletal: negative: CVA Tenderness Extremity: positive: Normal Capillary Refill. negative: Pedal Edema Integumentary: positive: Normal Color, Dry, Warm Neurologic: positive: Motor Strength 5/5, Abnormal Cranial NS ED Treatment Course - LABORATORY CBC & Chemistry Diagram: 12/01/16 07:30 12/01/16 11:15 - RADIOLOGY Radiology Studies Ordered: Category Date Time Status ABDOMEN & PELVIS CT W/O CONTR [CT] Stat CT Scan 11/29/16 09:23 Ordered CHEST X-RAY PORTABLE* [RAD] Stat Radiology 11/29/16 09:23 Ordered Medical Decision Making - Critical Care Time Total Critical Care Time (minutes): 35 Critical Care Statement: The care of this patient involved high complexity decision making to prevent further life threatening deterioration of the patient 's condition and/or to evalute & treat vital organ system(s) failure or risk of failure. - Medical Decision Making 11/29/16 09:36 Abdominal distention for the past few days associated now with increasing shortness of breath. 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 Wilcox. Patient exam had abdominal distention along with rhonchi to the bases of his lungs. Patient ordered for cardiac workup: X-ray, lipase, and abdominal CT without contrast. Will contact appropriate physicians including patient's PCP Dr. garcia. 11/29/16 10:42 Laboratory Tests 11/29/16 11/29/16 09:30 09:30 WBC 14.5 H Hgb 12.3 D Hct 36.9 RDW 17.0 H Plt Count 158 D Neutrophils % 75.2 Monocytes % 14.1 H D Sodium 131 L Potassium 5.6 H D Chloride 96 L Carbon Dioxide 20 L D Anion Gap 15 BUN 55 H D Creatinine 9.4 H* D Creat Clearance w eGFR 5.55 Random Glucose 201 H Calcium 9.1 Magnesium 2.1 Total Bilirubin 2.7 H D Troponin I 0.05 D Lipase 318 Chest x-ray with pulmonary congestion. Patient ordered for a KUB followed by an abdominal ultrasound. Case discussed with Dr. Garcia who states admit to [facility] and to consult Dr. Wilcox and Dr. Sarah Goel to schedule dialysis. He states patient has recently had therapeutic and diagnostic abdominal taps which was attributed to fluid overload and resolve normally with dialysis. Patient also recently was diagnosed with COPD and has an upcoming appointment Dr. Mitchell. 11/29/16 12:30 Abdominal CAT scan shows consistent with advanced hepatocellular disease including a monitor amount of ascites and mild splenomegaly. Pancreatic constipation suspicion for chronic calcified pancreatitis. *DC/Admit/Observation/Transfer Diagnosis at time of Disposition: Pulmonary hypertension associated with ESRD on dialysis, ESRD (end stage renal disease) on dialysis, Abdominal distention - Discharge Dispostion Admit: Yes - Referrals
[2016-11-29 09:36] LABS: BASOPHIL 0.3 % (0-2.0); EOSINOPHIL 6.3 % (0-4.5); MCH 30.6 pg (25.7-33.7); MCHC 33.4 g/dl (32.0-35.9); MEAN CELL VOLUME 91.5 fl (80-96); MEAN PLT VOLUME 9.1 fl (7.5-11.1); NEUTROPHILS 75.2 % (42.8-82.8); PLATELET COUNT 158 K/MM3 (134-434); WHITE BLOOD COUNT 14.5 K/mm3 (4.0-10.0)
[2016-11-29 10:04] LABS: ALBUMIN 3.2 g/dl (3.4-5.0); CALCIUM 9.1 mg/dL (8.5-10.1)
[2016-11-29 10:11] LABS: BILIRUBIN,TOTAL 2.7 mg/dL (0.2-1.0); COCKROFT - GAULT 8.41; TOT PROT 7.4 g/dl (6.4-8.2); TROPONIN I 0.05 ng/ml (0.00-0.05)
[2016-11-29 10:14] LABS: MAGNESIUM 2.1 mg/dL (1.8-2.4)
[2016-11-29 10:15] LABS: CREATININE 9.4 mg/dL (0.7-1.3)
--- NOTE | 2016-11-29 13:27 | EKG ---
Test Reason : Blood Pressure : / mmHG Vent. Rate : 069 BPM Atrial Rate : 069 BPM P-R Int : 158 ms QRS Dur : 168 ms QT Int : 488 ms P-R-T Axes : 057 100 -43 degrees QTc Int : 522 ms NORMAL SINUS RHYTHM RIGHT BUNDLE BRANCH BLOCK T WAVE ABNORMALITY, CONSIDER INFEROLATERAL ISCHEMIA ABNORMAL ECG WHEN COMPARED WITH ECG OF 16-AUG-2016 17:23, NO SIGNIFICANT CHANGE WAS FOUND Confirmed by HOA PURCELL, SHIRLEY ([id number]) on 11/29/2016 1:27:03 PM Referred By: Confirmed By:SHIRLEY CAMARA MD
--- NOTE | 2016-11-29 13:32 | CONSULT ---
Consult Consult Specialty:: nephrology ( drs. gillespie/ isaias) Referred by:: Dr. Oliver Reason for Consultation:: Thank you fro this consult referral. 71 y/o male , well known to our service, admitted with acute abdominal distension and pain. Denies fever. No chest pain. Patient was having periods of shortness of breath. He did have one bowel movement, but the stool was hard. There is no h/o bleeding, No diarrhea. - History of Present Illness Chief Complaint: The patient has h/o ESRD, on Hemodialysis MWF, h/o Pancreatic cyst, and Chronic pancreatic insufficiency, on enzyme supplements, uses O2 at home PRN. Denies any trauma, No chest pain, shortnes of breath, no h/o alcoholism. 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: Yes: CVA Cardio/Vascular: Yes: CAD, HTN Pulmonary: Yes: COPD Gastrointestinal: Yes: Ascites Renal/: Yes: Renal Failure, Hemodialysis Endocrine: Yes: Diabetes Mellitus - Past Surgical History Past Surgical History: Yes: AV Fistula/Graft - Alcohol/Substance Use Hx Alcohol Use: No History of Substance Use: reports: None - Smoking History Smoking history: Former smoker Have you smoked in the past 12 months: No If you are a former smoker, when did you quit?: 1995 - Social History ADL: Independent History of Recent Travel: No Home Medications - Allergies Allergies/Adverse Reactions: Allergies Allergy/AdvReac Type Severity Reaction Status Date / Time losartan Allergy angioedema Verified 11/29/16 08:45 - Home Medications Home Medications: Ambulatory Orders Aspirin [ASA -] 81 mg PO ASDIR 08/10/16 Multivit-Min/FA/Lycopen/Lutein [Centrum Silver Tablet] 1 each PO DAILY 08/10/16 Tamsulosin HCl [Flomax -] 0.4 mg PO DAILY 08/10/16 Vit C/Vit E AC/Lut/Copper/Zinc [Preservision Lutein Softgel] 1 each PO DAILY Allopurinol [Zyloprim -] 100 mg PO DAILY tablet 08/12/16 Calcium Acetate [Phoslo -] 667 mg PO TIDCM capsule 08/12/16 Cinacalcet HCl [Sensipar -] 30 mg PO DAILY tab 08/12/16 Torsemide [Demadex -] 40 mg PO BID 08/16/16 Carvedilol [Coreg -] 25 mg PO BID 11/29/16 Insulin Degludec [Tresiba Flextouch U-100] 10 unit SQ HS 11/29/16 Insulin Lispro [Humalog] 100 unit SQ ASDIR 11/29/16 Lipase/Protease/Amylase [Zenpep Dr 25,000 Units Capsule] 1 each PO TID 11/29/16 Omeprazole 20 mg PO BID 11/29/16 Review of Systems - Review of Systems Constitutional: reports: Loss of Appetite, Weakness. denies: Chills Neck: reports: No Symptoms Respiratory: reports: SOB, SOB on Exertion, Other (Uses O2 at home by N/C). denies: Cough, Hemoptysis Gastrointestinal: reports: Abdominal Pain, Bloating Neurological: reports: No Symptoms Endocrine: reports: No Symptoms Hematology/Lymphatic: reports: No Symptoms Physical Exam Vital Signs: Vital Signs Temperature 96 F L 11/29/16 08:45 Pulse Rate 72 11/29/16 08:45 Respiratory Rate 18 11/29/16 08:45 Blood Pressure 144/74 11/29/16 08:45 O2 Sat by Pulse Oximetry (%) 97 11/29/16 08:45 Constitutional: Yes: Well Nourished, Anxious, Mild Distress Eyes: Yes: Conjunctiva Clear HENT: Yes: Normocephalic Cardiovascular: Yes: Regular Rate and Rhythm, S1, S2 Respiratory: Yes: CTA Bilaterally, Diminished Gastrointestinal: Yes: Normal Bowel Sounds, Ascites, Hypoactive Bowel Sounds, Splenomegaly, Tenderness, Rebound (LLQ). No: Melena Musculoskeletal: No: Back Pain Neurological: Yes: Alert, Oriented Psychiatric: Yes: Alert, Oriented Imaging - Results Chest X-ray: Report Reviewed X-ray: Report Reviewed Cat Scan: Report Reviewed Ultrasound: Report Reviewed Problem List - Problems (1) Abdominal distention Code(s): R14.0 - ABDOMINAL DISTENSION (GASEOUS) (2) ESRD (end stage renal disease) on dialysis Code(s): N18.6 - END STAGE RENAL DISEASE Z99.2 - DEPENDENCE ON RENAL DIALYSIS (3) COPD (chronic obstructive pulmonary disease) Code(s): J44.9 - CHRONIC OBSTRUCTIVE PULMONARY DISEASE, UNSPECIFIED Qualifiers : COPD type: unspecified COPD Qualified Code(s): J44.9 - Chronic obstructive pulmonary disease, unspecified (4) Chronic pancreatitis Code(s): K86.1 - OTHER CHRONIC PANCREATITIS (5) Diabetes Code(s): E11.9 - TYPE 2 DIABETES MELLITUS WITHOUT COMPLICATIONS Qualifiers: Diabetes mellitus type: type 2 Diabetes mellitus complication status: with kidney complications Diabetes mellitus complication detail: with nephropathy Diabetes mellitus chcf insulin use: without chcf use Qualified Code(s): E11.21 - Type 2 diabetes mellitus with diabetic nephropathy; Z79.4 - termite renewal inspector (current) use of insulin (6) Hypertension Code(s): I10 - ESSENTIAL (PRIMARY) HYPERTENSION Qualifiers: Hypertension type: essential hypertension Qualified Code(s): I10 - Essential (primary) hypertension (7) Ascites Code(s): R18.8 - OTHER ASCITES Assessment/Plan 71 y/o male with ESRD, admitted with abdominal distension, Ascites and abdominal pain. W/u in progress. The CT scan was Non-Contrast. One need to exclude Acute ischemic bowel, or vascular events. IV contrast is NOT absolutely contraindicated, if a CT Angiogram needs to be done. But will avoid MRI or MRA with IV Gadolinium. The etiology of the acute abdominal process is not clear. GI w/u as in order. Mild Hyperkalemia is also noted. The ascites can not be explained just on the basis of ESRD, and fluid retention. ? Surgical evaluation. PLAN: Will dialyze using 2 K bath, and with a UF goal of 3-4 Kg. ? Surgery evaluation. Thank you. F/u with you. Sarah Gillespie MD
--- NOTE | 2016-11-29 18:46 | CON.GI ---
Consult Consult Specialty:: Gastroenterology Referred by:: Dr Oliver Reason for Consultation:: abdominal distention - History of Present Illness History of Present Illness: 71 y/o male with PMH ESRD, IBS with bacterial overgrowth, pancreatic insufficiency admitted with progressive abdominal distention and difficulty breathing. He does well after treatment of bacterial overgrowth with antibiotics as an outpatient and after undergoing dialysis. At present he is undergoing dialysis and feels better. 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 Cardio/Vascular: Yes: CAD, HTN Pulmonary: Yes: COPD Gastrointestinal: Yes: Ascites Renal/: Yes: Renal Failure, Hemodialysis Endocrine: Yes: Diabetes Mellitus - Past Surgical History Past Surgical History: Yes: AV Fistula/Graft - Alcohol/Substance Use Hx Alcohol Use: No History of Substance Use: reports: None - Smoking History Smoking history: Former smoker Have you smoked in the past 12 months: No If you are a former smoker, when did you quit?: 1995 - Social History ADL: Independent History of Recent Travel: No Home Medications - Allergies Allergies/Adverse Reactions: Allergies Allergy/AdvReac Type Severity Reaction Status Date / Time losartan Allergy angioedema Verified 11/29/16 08:45 - Home Medications Home Medications: Ambulatory Orders Aspirin [ASA -] 81 mg PO ASDIR 08/10/16 Multivit-Min/FA/Lycopen/Lutein [Centrum Silver Tablet] 1 each PO DAILY 08/10/16 Tamsulosin HCl [Flomax -] 0.4 mg PO DAILY 08/10/16 Vit C/Vit E AC/Lut/Copper/Zinc [Preservision Lutein Softgel] 1 each PO DAILY Allopurinol [Zyloprim -] 100 mg PO DAILY tablet 08/12/16 Calcium Acetate [Phoslo -] 667 mg PO TIDCM capsule 08/12/16 Cinacalcet HCl [Sensipar -] 30 mg PO DAILY tab 08/12/16 Torsemide [Demadex -] 40 mg PO BID 08/16/16 Carvedilol [Coreg -] 25 mg PO BID 11/29/16 Insulin Degludec [Tresiba Flextouch U-100] 10 unit SQ HS 11/29/16 Insulin Lispro [Humalog] 100 unit SQ ASDIR 11/29/16 Lipase/Protease/Amylase [Zenpep Dr 25,000 Units Capsule] 1 each PO TID 11/29/16 Omeprazole 20 mg PO BID 11/29/16 Physical Exam-GI Vital Signs: Vital Signs Temperature 96 F L 11/29/16 08:45 Pulse Rate 82 11/29/16 17:55 Respiratory Rate 18 11/29/16 17:55 Blood Pressure 148/109 11/29/16 17:55 O2 Sat by Pulse Oximetry (%) 92 L 11/29/16 15:28 Constitutional: Yes: Well Nourished Eyes: Yes: Conjunctiva Clear HENT: Yes: Atraumatic Neck: Yes: Supple Cardiovascular: Yes: Regular Rate and Rhythm Respiratory: Yes: CTA Bilaterally ...Palpate: Yes: Soft. No: Firm/Rigid, Guarding, Hepatomegaly, Mass, Pulsatile Mass, Splenomegaly, Tenderness Problem List - Problems (1) IBS (irritable bowel syndrome) Assessment/Plan: with small bowel bacterial overgrowth R> xifaxan 550mg tid pancrealipase with meals patient made aware to folow-up Code(s): K58.9 - IRRITABLE BOWEL SYNDROME WITHOUT DIARRHEA
--- NOTE | 2016-11-29 22:25 | HP ---
Admitting History and Physical - Primary Care Physician PCP: Triston Oliver - Admission Chief Complaint: ABDOMINAL PAIN WITH ASCITES History of Present Illness: 71-year-old male brought in by for evaluation of abdominal distention worsening over the past 2 days now associated with increasing shortness of breath. Patient states history of pancreatic cyst and is followed by Dr. wilcox. Patient also receives dialysis Tuesday and is due today. Patient also with history of COPD and utilizes oxygen as needed at home which she had to use last night secondary to symptoms above. Patient denies chest pain, palpitations, fever, chills weakness, or lower extremity edema. Patient does state constipation for the past week without decreased flatulence or rectal bleeding. patient is followed by Dr. Alberts for pulmonology and Dr. Marquez for dialysis. 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: Yes: CVA Cardiovascular: Yes: CAD, HTN Pulmonary: Yes: COPD Gastrointestinal: Yes: Ascites Renal/: Yes: Renal Failure, Hemodialysis Endocrine: Yes: Diabetes Mellitus - Past Surgical History Past Surgical History: Yes: AV Fistula/Graft - Smoking History Smoking history: Former smoker Have you smoked in the past 12 months: No If you are a former smoker, when did you quit?: 1995 - Alcohol/Substance Use Hx Alcohol Use: No History of Substance Use: reports: None - Social History ADL: Independent History of Recent Travel: No Home Medications - Allergies Allergies/Adverse Reactions: Allergies Allergy/AdvReac Type Severity Reaction Status Date / Time losartan Allergy angioedema Verified 11/29/16 08:45 - Home Medications Home Medications: Ambulatory Orders Aspirin [ASA -] 81 mg PO ASDIR 08/10/16 Multivit-Min/FA/Lycopen/Lutein [Centrum Silver Tablet] 1 each PO DAILY 08/10/16 Tamsulosin HCl [Flomax -] 0.4 mg PO DAILY 08/10/16 Vit C/Vit E AC/Lut/Copper/Zinc [Preservision Lutein Softgel] 1 each PO DAILY Allopurinol [Zyloprim -] 100 mg PO DAILY tablet 08/12/16 Calcium Acetate [Phoslo -] 667 mg PO TIDCM capsule 08/12/16 Cinacalcet HCl [Sensipar -] 30 mg PO DAILY tab 08/12/16 Torsemide [Demadex -] 40 mg PO BID 08/16/16 Carvedilol [Coreg -] 25 mg PO BID 11/29/16 Insulin Degludec [Tresiba Flextouch U-100] 10 unit SQ HS 11/29/16 Insulin Lispro [Humalog] 100 unit SQ ASDIR 11/29/16 Lipase/Protease/Amylase [Zenpep Dr 25,000 Units Capsule] 1 each PO TID 11/29/16 Omeprazole 20 mg PO BID 11/29/16 Review of Systems - Review of Systems Constitutional: reports: Loss of Appetite, Weakness Eyes: reports: No Symptoms HENT: reports: No Symptoms Neck: reports: No Symptoms Cardiovascular: reports: No Symptoms Respiratory: reports: SOB Gastrointestinal: reports: Abdominal Pain Genitourinary: reports: Other Musculoskeletal: reports: Muscle Weakness Integumentary: reports: No Symptoms Neurological: reports: Pre-Existing Deficit Endocrine: reports: Other Hematology/Lymphatic: reports: Other Physical Examination Vital Signs: Vital Signs Temperature 96 F L 11/29/16 08:45 Pulse Rate 81 11/29/16 19:40 Respiratory Rate 18 11/29/16 19:40 Blood Pressure 140/63 11/29/16 19:40 O2 Sat by Pulse Oximetry (%) 92 L 11/29/16 15:28 Constitutional: Yes: Moderate Distress Eyes: Yes: WNL HENT: Yes: WNL Neck: Yes: WNL Cardiovascular: Yes: WNL Respiratory: Yes: Diminished, On Nasal O2, SOB Gastrointestinal: Yes: Ascites, Tenderness Renal/: Yes: Other Musculoskeletal: Yes: Muscle Weakness Extremities: Yes: WNL Edema: Yes Integumentary: Yes: Rash Wound/Incision: Yes: Other Neurological: Yes: Pre-Existing Deficit, Unsteady Gait ...Motor Strength: LLE, RLE Psychiatric: Yes: Other Imaging - Results Cat Scan: Report Reviewed Problem List - Problems (1) Abdominal distention Code(s): R14.0 - ABDOMINAL DISTENSION (GASEOUS) (2) Ascites Code(s): R18.8 - OTHER ASCITES (3) IBS (irritable bowel syndrome) Code(s): K58.9 - IRRITABLE BOWEL SYNDROME WITHOUT DIARRHEA Qualifiers: Irritable bowel syndrome type: without diarrhea Qualified Code(s): K58.9 - Irritable bowel syndrome without diarrhea (4) ESRD (end stage renal disease) on dialysis Code(s): N18.6 - END STAGE RENAL DISEASE Z99.2 - DEPENDENCE ON RENAL DIALYSIS (5) Pulmonary hypertension associated with ESRD on dialysis Code(s): I27.2 - OTHER SECONDARY PULMONARY HYPERTENSION N18.6 - END STAGE RENAL DISEASE Z99.2 - DEPENDENCE ON RENAL DIALYSIS (6) COPD (chronic obstructive pulmonary disease) Code(s): J44.9 - CHRONIC OBSTRUCTIVE PULMONARY DISEASE, UNSPECIFIED Qualifiers : COPD type: unspecified COPD Qualified Code(s): J44.9 - Chronic obstructive pulmonary disease, unspecified (7) Diabetes Code(s): E11.9 - TYPE 2 DIABETES MELLITUS WITHOUT COMPLICATIONS Qualifiers: Diabetes mellitus type: type 2 Diabetes mellitus complication status: with kidney complications Diabetes mellitus complication detail: with nephropathy Diabetes mellitus retirement insulin use: without retirement use Qualified Code(s): E11.21 - Type 2 diabetes mellitus with diabetic nephropathy; Z79.4 - retirement (current) use of insulin Assessment/Plan ESRD ON HD COPD STABLE PULM F/U GI EVAL FOR POSSIBLE PARACENTESIS F/U LABS
[2016-11-29] MEDS ORDERED: ACETAMINOPHEN 325 MG TABLET (FP) PO PRN (22:30)
[2016-11-29] MEDS ORDERED: ARFORMOTEROL TARTRATE 15 MCG/2 ML VIAL NEB ONE (23:21)
[2016-11-29] MEDS: RIFAXIMIN 550 MG TABLET (UD) PO SCH (23:22)
[2016-11-30] MEDS: INSULIN SLIDING SCALE (NOVOLOG) 1 VIAL SQ SCH ×4 (07:02→21:40)
[2016-11-30 08:51] LABS: MCH 29.9 pg (25.7-33.7); MCHC 32.8 g/dl (32.0-35.9); MEAN CELL VOLUME 91.2 fl (80-96); MEAN PLT VOLUME 8.4 fl (7.5-11.1); PLATELET COUNT 183 K/MM3 (134-434); RDW 16.7 % (11.9-15.9); WHITE BLOOD COUNT 11.3 K/mm3 (4.0-10.0)
[2016-11-30] MEDS: CALCIUM ACETATE 667 MG CAPSULE (FP) PO SCH ×3 (09:11→17:34)
[2016-11-30] MEDS: CARVEDILOL 25 MG TABLET (FP) PO SCH ×2 (09:11→21:39)
[2016-11-30] MEDS: TAMSULOSIN HCL 0.4 MG CAP.ER.24H (FP) PO SCH (09:11)
[2016-11-30] MEDS: ASPIRIN COATED 81 MG TABLET.EC PO SCH (09:11)
[2016-11-30] MEDS: PANTOPRAZOLE 20 MG TABLET (FP) PO SCH ×2 (09:12→21:38)
[2016-11-30] MEDS: ALLOPURINOL 100 MG TABLET (FP) PO SCH (09:12)
[2016-11-30] MEDS: CINACALCET HCL 30 MG TAB (FP) PO SCH (09:12)
[2016-11-30 09:18] LABS: ALBUMIN 2.8 g/dl (3.4-5.0); BILIRUBIN,TOTAL 1.9 mg/dL (0.2-1.0); CALCIUM 8.9 mg/dL (8.5-10.1); COCKROFT - GAULT 13.4; CREATININE 5.9 mg/dL (0.7-1.3); TOT PROT 6.5 g/dl (6.4-8.2)
--- NOTE | 2016-11-30 09:51 | CONSULT ---
Consultation: REQUESTING PROVIDER: Dr. Nora Oliver CONSULT REQUEST: We have been asked to medically evaluate this patient for leukocytosis. HISTORY OF PRESENT ILLNESS: 71 year old male with a significant past medical history of pancreatic insufficiency, IBS, CVA, CAD, ESRD on HD, IDDM, brought in by his for evaluation of abdominal distension, pain, early satiety for the past 2 days prior to admission. Patient denies fever, chills, nausea, vomiting, diarrhea, constipation, and is passing flatus. Patient follows Dr. Lozano and has been treated for abdominal distension with paracentesis and rifaximin in the past. No history of SBP. Patient is here with , who is a nurse, who states that he has been having a cough productive of yellow sputum for the past three weeks. He also follows Dr. Mitchell for COPD and pulmonary nodule, recent chest CT showing bronchiectasis 12/08. Patient denies fever, chills, n,v, LIMON Patient denies chest pain, sob, leg edema Patient denies diarrhea, constipation, problems with urination Denies recent travel, was last admitted 09/10 for angioedema secondary to felicita-I REVIEW OF SYSTEMS: CONSTITUTIONAL: Positive:generalized weakness,loss of appetite Absent: fever, chills, diaphoresis, malaise, weight change HEENT: Absent: rhinorrhea, nasal congestion, throat pain, throat swelling, difficulty swallowing, mouth swelling, ear pain, eye pain, visual changes CARDIOVASCULAR: Absent: chest pain, syncope, palpitations, irregular heart rate, lightheadedness , peripheral edema RESPIRATORY: Positive: cough with yellow sputum production Absent: dyspnea with exertion, orthopnea, wheezing, stridor, hemoptysis GASTROINTESTINAL: Positive:abdominal pain, abdominal distension, Absent:nausea, vomiting, diarrhea, constipation, melena, hematochezia GENITOURINARY: Absent: dysuria, frequency, urgency, hesitancy, hematuria, flank pain, genital pain MUSCULOSKELETAL: Absent: myalgia, arthralgia, joint swelling, back pain, neck pain SKIN: Absent: rash, itching, pallor HEMATOLOGIC/IMMUNOLOGIC: Absent: easy bleeding, easy bruising, lymphadenopathy, frequent infections ENDOCRINE: Absent: unexplained weight gain, unexplained weight loss, heat intolerance, cold intolerance NEUROLOGIC: Absent: headache, focal weakness or paresthesias, dizziness, unsteady gait, seizure, mental status changes, bladder or bowel incontinence PSYCHIATRIC: Absent: anxiety, depression, suicidal or homicidal ideation, hallucinations. PHYSICAL EXAMINATION Vital Signs - 24 hr 11/29/16 11/29/16 11/29/16 14:55 15:15 15:25 Temperature Pulse Rate 80 74 Pulse Rate [ 72 Left Radial] Respiratory 20 18 18 Rate Blood Pressure 149/69 148/72 Blood Pressure 131/61 [Right Arm] O2 Sat by Pulse 92 L Oximetry (%) 11/29/16 11/29/16 11/29/16 15:28 15:55 16:25 Temperature Pulse Rate 67 71 Pulse Rate [ Left Radial] Respiratory 18 18 Rate Blood Pressure 155/60 128/62 Blood Pressure [Right Arm] O2 Sat by Pulse 92 L Oximetry (%) 11/29/16 11/29/16 11/29/16 16:55 17:25 17:55 Temperature Pulse Rate 72 81 82 Pulse Rate [ Left Radial] Respiratory 18 18 18 Rate Blood Pressure 134/60 143/71 148/109 Blood Pressure [Right Arm] O2 Sat by Pulse Oximetry (%) 11/29/16 11/29/16 11/29/16 18:25 18:55 19:25 Temperature Pulse Rate 78 74 94 H Pulse Rate [ Left Radial] Respiratory 18 18 18 Rate Blood Pressure 151/62 155/57 148/36 Blood Pressure [Right Arm] O2 Sat by Pulse Oximetry (%) 11/29/16 11/29/16 11/29/16 19:40 21:00 22:44 Temperature Pulse Rate 81 81 Pulse Rate [ Left Radial] Respiratory 18 18 18 Rate Blood Pressure 140/63 140/63 Blood Pressure [Right Arm] O2 Sat by Pulse Oximetry (%) 11/30/16 07:39 Temperature 99.1 F Pulse Rate 76 Pulse Rate [ Left Radial] Respiratory 20 Rate Blood Pressure 132/54 Blood Pressure [Right Arm] O2 Sat by Pulse Oximetry (%) GENERAL: Awake, alert, and fully oriented, lethargic HEAD: Normal with no signs of trauma. EYES: Pupils equal, round and reactive to light, extraocular movements intact, sclera anicteric, conjunctiva clear. No lid lag. EARS, NOSE, THROAT: Ears normal, nares patent, oropharynx clear without exudates. Moist mucous membranes. NECK: Normal range of motion, supple without lymphadenopathy, JVD, or masses. LUNGS: Breath sounds decreased, right sided basilar crackles HEART: Regular rate and rhythm, normal S1 and S2 without murmur, rub or gallop. ABDOMEN: tender to palpation upper and lower right quadrants, +distend, normoactive bowel sounds, +rebound, no masses. No hepatomegaly or splenomegaly. MUSCULOSKELETAL: Normal range of motion at all joints. No bony deformities or tenderness. No CVA tenderness. UPPER EXTREMITIES: 2+ pulses, warm, well-perfused. No cyanosis. No clubbing. Cap refill <2 seconds. No peripheral edema. LOWER EXTREMITIES: 2+ pulses, warm, well-perfused. No calf tenderness. No peripheral edema. NEUROLOGICAL: Cranial nerves II-XII intact. Normal speech. Normal gait. PSYCHIATRIC: Cooperative. Good eye contact. Appropriate mood and affect. SKIN: Warm, dry, normal turgor, no rashes or lesions noted. Laboratory Results - last 24 hr 11/30/16 11/30/16 11/30/16 06:30 08:05 08:05 WBC 11.3 H RBC 3.78 L Hgb 11.3 L Hct 34.5 L MCV 91.2 MCHC 32.8 RDW 16.7 H Plt Count 183 MPV 8.4 Sodium 140 Potassium 3.8 D Chloride 98 Carbon Dioxide 31 D Anion Gap 11 BUN 28 H D Creatinine 5.9 H D Creat Clearance w eGFR 9.50 POC Glucometer 200 Random Glucose 192 H Calcium 8.9 Total Bilirubin 1.9 H D AST 18 D ALT 13 Alkaline Phosphatase 265 H Total Protein 6.5 Albumin 2.8 L Active Medications Generic Name Dose Route Start Last Admin Trade Name Freq PRN Reason Stop Dose Admin Acetaminophen 650 mg 11/29/16 22:30 Tylenol - PO Q6H PRN FEVER OR PAIN Allopurinol 100 mg 11/30/16 10:00 11/30/16 09:12 Zyloprim - PO 100 mg DAILY [facility] Administration Arformoterol Tartrate 1 amp 11/30/16 10:00 Brovana (Restricted To Pulmonology/Resp) - NEB BID [facility] Aspirin 81 mg 11/30/16 10:00 11/30/16 09:11 Ecotrin - PO 81 mg DAILY [facility] Administration Calcium Acetate 667 mg 11/30/16 08:00 11/30/16 09:11 Phoslo - PO 667 mg TIDCM [facility] Administration Carvedilol 25 mg 11/30/16 10:00 11/30/16 09:11 Coreg - PO 25 mg BID [facility] Administration Cinacalcet 30 mg 11/30/16 10:00 11/30/16 09:12 Sensipar - PO 30 mg DAILY [facility] Administration Insulin Aspart 1 vial 11/30/16 07:00 11/30/16 07:02 Novolog Vial Sliding Scale - SQ Not Given ACHS [facility] Protocol Insulin Detemir 10 units 11/30/16 22:00 Levemir Vial SQ HS [facility] Pancrelipase 1 cap 11/30/16 08:00 Duc Mccoy 6,000 Units Capsule PO TIDCM [facility] Pantoprazole Sodium 20 mg 11/30/16 10:00 11/30/16 09:12 Protonix - PO 20 mg BID [facility] Administration Rifaximin 550 mg 11/29/16 22:00 11/29/16 23:22 Xifaxan - PO 550 mg BID [facility] Administration Tamsulosin HCl 0.4 mg 11/30/16 08:30 11/30/16 09:11 Flomax - PO 0.4 mg DAILY@0830 [facility] Administration Torsemide 40 mg 11/30/16 10:00 Demadex - PO DAILY [facility] ASSESSMENT/PLAN: 71 year old male with past medical history of CVA, CAD, HTN, COPD, ascites,, ESRF on HD (MWF), IDDM, presents with abdominal pain distension fort 2 days prior admission. Patient had mild fever on admission with leukocytosis, ID called to evaluate. It currently does not look like patient is infected. His white count came down the next day and has not had a fever, not on any antibiotics. If patient starts to develop fever, rise in white count or associated symptoms, then would benefit from paracentesis to rule out SBP. Watch off antibiotics for now. -Ascities -IBS -pancreatic insufficiency -COPD -pulmonary nodule -IDDM -ESRD -CVA -CAD #Ascites most likely secondary to hepatic congestion; r/o obstruction -HD may help with fluid overload -cont rifaximin -watch off antibiotics -if patient starts to develop fever, white count, get paracentesis; (before giving antibiotics) -appreciate GI #r/o pna -patient with cough, sputum production -looks more like fluid/bronchiectasis component with COPD Dispo: We will continue to follow the patient. Thank you for this consultative opportunity. Visit type - Emergency Visit Emergency Visit: Yes ED Registration Date: 11/29/16 Care time: The patient presented to the Emergency Department on the above date and was hospitalized for further evaluation of their emergent condition. - New Patient This patient is new to me today: Yes Date on this admission: 12/03/16 - Critical Care Critical Care patient: No
[2016-11-30] MEDS: LIPASE/PROTEASE/AMYLASE 6,000 UNIT CAPSULE PO SCH ×3 (10:25→17:35)
[2016-11-30] MEDS: ARFORMOTEROL TARTRATE 15 MCG/2 ML VIAL NEB SCH ×2 (10:40→23:45)
[2016-11-30] MEDS: TORSEMIDE 20 MG TABLET (FP) PO SCH (10:48)
[2016-11-30] MEDS: RIFAXIMIN 550 MG TABLET (UD) PO SCH ×2 (10:48→21:39)
--- NOTE | 2016-11-30 13:38 | PN ---
Progress Note (short form) - Note Progress Note: Renal follow up for ESRD on HD Pt seen and examined at the bedside awake and alert no acute complaints is with the patient s/p dialysis yesterday still has abd distension but no tenderness Vital Signs Temperature 99.1 F 11/30/16 07:39 Pulse Rate 83 11/30/16 09:56 Respiratory Rate 20 11/30/16 07:39 Blood Pressure 132/54 11/30/16 07:39 O2 Sat by Pulse Oximetry (%) 97 11/30/16 09:56 Intake & Output 11/27/16 11/28/16 11/29/16 11/30/16 23:59 23:59 23:59 23:59 Intake Total 250 Balance 250 Weight 182 lb Gen: NAD CVS: RRR, + systolic murmur Lungs: CTA, dec BS at lung bases Abd: soft + ascities Ext: Trace LE edema CBC, BMP 11/30/16 08:05 11/30/16 08:05 Current Medications Acetaminophen (Tylenol -) 650 mg PO Q6H PRN PRN Reason: FEVER OR PAIN Allopurinol (Zyloprim -) 100 mg PO DAILY [facility] Last Admin: 11/30/16 09:12 Dose: 100 mg Arformoterol Tartrate (Brovana (Restricted To Pulmonology/Resp) -) 1 amp NEB BID [facility] Last Admin: 11/30/16 10:40 Dose: 1 amp Aspirin (Ecotrin -) 81 mg PO DAILY [facility] Last Admin: 11/30/16 09:11 Dose: 81 mg Calcium Acetate (Phoslo -) 667 mg PO TIDCM [facility] Last Admin: 11/30/16 11:33 Dose: 667 mg Carvedilol (Coreg -) 25 mg PO BID [facility] Last Admin: 11/30/16 09:11 Dose: 25 mg Cinacalcet (Sensipar -) 30 mg PO DAILY [facility] Last Admin: 11/30/16 09:12 Dose: 30 mg Insulin Aspart (Novolog Vial Sliding Scale -) 1 vial SQ ACHS [facility] PRN Reason: Protocol Last Admin: 11/30/16 11:32 Dose: Not Given Insulin Detemir (Levemir Vial) 10 units SQ HS [facility] Pancrelipase (Creon Dr 6,000 Units Capsule) 1 cap PO TIDCM [facility] Last Admin: 11/30/16 11:32 Dose: 1 cap Pantoprazole Sodium (Protonix -) 20 mg PO BID [facility] Last Admin: 11/30/16 09:12 Dose: 20 mg Rifaximin (Xifaxan -) 550 mg PO BID [facility] Last Admin: 11/30/16 10:48 Dose: 550 mg Tamsulosin HCl (Flomax -) 0.4 mg PO DAILY@0830 [facility] Last Admin: 11/30/16 09:11 Dose: 0.4 mg Torsemide (Demadex -) 40 mg PO DAILY [facility] Last Admin: 11/30/16 10:48 Dose: 40 mg Renal Consult for ESRD on HD 71 year old Gentleman with PMhx of ESRD on HD (MWF), COPD, Hypertension, ACD, DM who presented with Abd distension and found to have moderate asciteis #Abd Ascities with minimal improvement with HD CT of the abd showed small liver that is consistent with advanced hepatocellular disease will continue UF as tolerated with HD GI following #ESRD on HD s/p dialysis yesterday, no acute indication today continue fluid and salt restriction Hd tomorrow with UF as tolerated Franklyn Frazier DO
--- NOTE | 2016-11-30 14:00 | PN ---
Teaching Attending Note Name of Resident: Marisela Thorne ATTENDING PHYSICIAN STATEMENT I saw and evaluated the patient. I reviewed the resident's note and discussed the case with the resident. I agree with the resident's findings and plan as documented. SUBJECTIVE: OBJECTIVE: ASSESSMENT AND PLAN: would observe off antibiotics he and his report he is much improved- less abdominal pain and passing flatus if abfdominal pain persists would perform paracentesis to r/o SBP
--- NOTE | 2016-11-30 17:11 | PN ---
GI Progress Note Subjective: bloating and abdominal distention is wilmer tolerating diet - Objective Vital Signs: Vital Signs Temperature 98.9 F 11/30/16 14:52 Pulse Rate 70 11/30/16 14:52 Respiratory Rate 24 11/30/16 14:52 Blood Pressure 141/61 11/30/16 14:52 O2 Sat by Pulse Oximetry (%) 97 11/30/16 09:56 Constitutional: Well Nourished Eyes: Yes: Conjunctiva Clear HENT: Yes: Atraumatic Neck: Yes: Supple Cardiovascular: Yes: Regular Rate and Rhythm Respiratory: Yes: CTA Bilaterally ...Palpate: Yes: Soft. No: Guarding, Hepatomegaly, Mass, Pulsatile Mass ...Percussion: Yes: Tympanitic Labs: CBC, BMP 11/30/16 08:05 11/30/16 08:05 Problem List - Problems (1) IBS (irritable bowel syndrome) Assessment/Plan: resolving R> continue Xifaxan and pancrealipase Code(s): K58.9 - IRRITABLE BOWEL SYNDROME WITHOUT DIARRHEA Qualifiers: Irritable bowel syndrome type: without diarrhea Qualified Code(s): K58.9 - Irritable bowel syndrome without diarrhea
[2016-11-30 18:56] LABS: ERYTHROCYTE SEDIMENTATION RATE 23 mm/hr (0-20)
--- NOTE | 2016-11-30 19:53 | PN ---
Progress Note, Physician Chief Complaint: AWAKE ALERT BEDSIDE FEELING BETTER TODAY - Current Medication List Current Medications: Active Medications Acetaminophen (Tylenol -) 650 mg PO Q6H PRN PRN Reason: FEVER OR PAIN Allopurinol (Zyloprim -) 100 mg PO DAILY [facility] Last Admin: 11/30/16 09:12 Dose: 100 mg Arformoterol Tartrate (Brovana (Restricted To Pulmonology/Resp) -) 1 amp NEB BID [facility] Last Admin: 11/30/16 10:40 Dose: 1 amp Aspirin (Ecotrin -) 81 mg PO DAILY [facility] Last Admin: 11/30/16 09:11 Dose: 81 mg Calcium Acetate (Phoslo -) 667 mg PO TIDCM [facility] Last Admin: 11/30/16 17:34 Dose: 667 mg Carvedilol (Coreg -) 25 mg PO BID [facility] Last Admin: 11/30/16 09:11 Dose: 25 mg Cinacalcet (Sensipar -) 30 mg PO DAILY [facility] Last Admin: 11/30/16 09:12 Dose: 30 mg Insulin Aspart (Novolog Vial Sliding Scale -) 1 vial SQ ACHS [facility] PRN Reason: Protocol Last Admin: 11/30/16 16:49 Dose: Not Given Insulin Detemir (Levemir Vial) 10 units SQ HS [facility] Pancrelipase (Nancyon Dr 6,000 Units Capsule) 1 cap PO TIDCM [facility] Last Admin: 11/30/16 17:35 Dose: 1 cap Pantoprazole Sodium (Protonix -) 20 mg PO BID [facility] Last Admin: 11/30/16 09:12 Dose: 20 mg Rifaximin (Xifaxan -) 550 mg PO BID [facility] Last Admin: 11/30/16 10:48 Dose: 550 mg Tamsulosin HCl (Flomax -) 0.4 mg PO DAILY@0830 [facility] Last Admin: 11/30/16 09:11 Dose: 0.4 mg Torsemide (Demadex -) 40 mg PO DAILY [facility] Last Admin: 11/30/16 10:48 Dose: 40 mg - Objective Vital Signs: Vital Signs Temperature 98.9 F 11/30/16 14:52 Pulse Rate 70 11/30/16 14:52 Respiratory Rate 24 11/30/16 14:52 Blood Pressure 141/61 11/30/16 14:52 O2 Sat by Pulse Oximetry (%) 97 11/30/16 09:56 Constitutional: Yes: Mild Distress Eyes: Yes: WNL HENT: Yes: WNL Neck: Yes: WNL Cardiovascular: Yes: WNL Respiratory: Yes: Wheezes Gastrointestinal: Yes: Ascites, Distention, Tenderness Musculoskeletal: Yes: Muscle Weakness Extremities: Yes: WNL Edema: Yes ...Motor Strength: WNL Psychiatric: Yes: WNL Labs: CBC, BMP 11/30/16 08:05 11/30/16 08:05 Problem List - Problems (1) Abdominal distention Code(s): R14.0 - ABDOMINAL DISTENSION (GASEOUS) (2) Ascites Code(s): R18.8 - OTHER ASCITES (3) IBS (irritable bowel syndrome) Code(s): K58.9 - IRRITABLE BOWEL SYNDROME WITHOUT DIARRHEA Qualifiers: Irritable bowel syndrome type: without diarrhea Qualified Code(s): K58.9 - Irritable bowel syndrome without diarrhea (4) ESRD (end stage renal disease) on dialysis Code(s): N18.6 - END STAGE RENAL DISEASE Z99.2 - DEPENDENCE ON RENAL DIALYSIS (5) Pulmonary hypertension associated with ESRD on dialysis Code(s): I27.2 - OTHER SECONDARY PULMONARY HYPERTENSION N18.6 - END STAGE RENAL DISEASE Z99.2 - DEPENDENCE ON RENAL DIALYSIS (6) COPD (chronic obstructive pulmonary disease) Code(s): J44.9 - CHRONIC OBSTRUCTIVE PULMONARY DISEASE, UNSPECIFIED Qualifiers : COPD type: unspecified COPD Qualified Code(s): J44.9 - Chronic obstructive pulmonary disease, unspecified (7) Diabetes Code(s): E11.9 - TYPE 2 DIABETES MELLITUS WITHOUT COMPLICATIONS Qualifiers: Diabetes mellitus type: type 2 Diabetes mellitus complication status: with kidney complications Diabetes mellitus complication detail: with nephropathy 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
[2016-11-30] MEDS: INSULIN DETEMIR 100 UNITS/ML MDV SQ SCH ×2 (21:39→21:41)
[2016-12-01] MEDS: INSULIN SLIDING SCALE (NOVOLOG) 1 VIAL SQ SCH ×4 (06:11→21:39)
[2016-12-01] MEDS ORDERED: PT OWN MED DRAWER 7, Y5N ONE ×2 (07:16→11:59)
[2016-12-01 08:27] LABS: MCH 29.9 pg (25.7-33.7); MCHC 32.7 g/dl (32.0-35.9); MEAN CELL VOLUME 91.4 fl (80-96); MEAN PLT VOLUME 8.8 fl (7.5-11.1); PLATELET COUNT 201 K/MM3 (134-434); RDW 16.5 % (11.9-15.9); WHITE BLOOD COUNT 12.1 K/mm3 (4.0-10.0)
[2016-12-01] MEDS: LIPASE/PROTEASE/AMYLASE 6,000 UNIT CAPSULE PO SCH ×3 (08:37→17:16)
[2016-12-01] MEDS: TAMSULOSIN HCL 0.4 MG CAP.ER.24H (FP) PO SCH ×2 (08:37→12:01)
[2016-12-01] MEDS: CALCIUM ACETATE 667 MG CAPSULE (FP) PO SCH ×3 (08:37→17:16)
[2016-12-01 09:21] LABS: ALBUMIN 2.7 g/dl (3.4-5.0); BILIRUBIN,TOTAL 1.7 mg/dL (0.2-1.0); CALCIUM 9.1 mg/dL (8.5-10.1); COCKROFT - GAULT 10.69; CREATININE 7.4 mg/dL (0.7-1.3); PHOSPHOROUS 4.6 mg/dL (2.5-4.9); TOT PROT 6.3 g/dl (6.4-8.2)
--- NOTE | 2016-12-01 11:55 | PN ---
Progress Note (short form) - Note Progress Note: Renal follow up for ESRD on HD Pt seen and examined during dialysis BP stable, access with good function pt has some left sided chest pain that started last night and continued this morning now resolved no N/V, diaphoresis Vital Signs Temperature 98.6 F 12/01/16 07:43 Pulse Rate 79 12/01/16 11:20 Respiratory Rate 18 12/01/16 11:20 Blood Pressure 149/59 12/01/16 11:20 O2 Sat by Pulse Oximetry (%) 95 11/30/16 21:00 Intake & Output 11/28/16 11/29/16 11/30/16 12/01/16 23:59 23:59 23:59 23:59 Intake Total 450 200 Balance 450 200 Weight 182 lb Gen: NAD CVS: RRR, + systolic murmur Lungs: CTA, dec BS at lung bases Abd: soft + ascities Ext: Trace LE edema CBC, BMP 12/01/16 07:30 Laboratory Tests 12/01/16 07:30 Calcium 9.1 Phosphorus 4.6 Magnesium 2.0 Albumin 2.7 L Current Medications Acetaminophen (Tylenol -) 650 mg PO Q6H PRN PRN Reason: FEVER OR PAIN Allopurinol (Zyloprim -) 100 mg PO DAILY [facility] Last Admin: 11/30/16 09:12 Dose: 100 mg Arformoterol Tartrate (Brovana (Restricted To Pulmonology/Resp) -) 1 amp NEB BID [facility] Last Admin: 11/30/16 23:45 Dose: 1 amp Aspirin (Ecotrin -) 81 mg PO DAILY [facility] Last Admin: 11/30/16 09:11 Dose: 81 mg Calcium Acetate (Phoslo -) 667 mg PO TIDCM [facility] Last Admin: 12/01/16 08:37 Dose: Not Given Carvedilol (Coreg -) 25 mg PO BID [facility] Last Admin: 11/30/16 21:39 Dose: 25 mg Cinacalcet (Sensipar -) 30 mg PO DAILY [facility] Last Admin: 11/30/16 09:12 Dose: 30 mg Insulin Aspart (Novolog Vial Sliding Scale -) 1 vial SQ ACHS [facility] PRN Reason: Protocol Last Admin: 12/01/16 06:11 Dose: Not Given Insulin Detemir (Levemir Vial) 10 units SQ HS [facility] Last Admin: 11/30/16 21:41 Dose: Not Given Pancrelipase (Creon Dr 6,000 Units Capsule) 1 cap PO TIDCM [facility] Last Admin: 12/01/16 08:37 Dose: Not Given Pantoprazole Sodium (Protonix -) 20 mg PO BID [facility] Last Admin: 11/30/16 21:38 Dose: 20 mg Rifaximin (Xifaxan -) 550 mg PO BID [facility] Last Admin: 11/30/16 21:39 Dose: 550 mg Tamsulosin HCl (Flomax -) 0.4 mg PO DAILY@0830 [facility] Last Admin: 12/01/16 08:37 Dose: Not Given Torsemide (Demadex -) 40 mg PO DAILY [facility] Last Admin: 11/30/16 10:48 Dose: 40 mg 71 year old Gentleman with PMhx of ESRD on HD (MWF), COPD, Hypertension, ACD, DM who presented with Abd distension and found to have moderate asciteis #Abd Ascities management as per GI will continue aggressive UF with HD #Chest pain EKG reviewed, no overt or new changes compared to old EKG cardiac enzymes sent transferred to Tele Cardiology consult #ESRD on HD tolerating dialysis well today continue on MWF schedule dose all meds for intermittent HD Franklyn Frazier DO
--- NOTE | 2016-12-01 12:00 | CONSULT ---
Admitting History and Physical - Primary Care Physician PCP: Triston Oliver - Admission History of Present Illness: Per EMR: "HISTORY OF PRESENT ILLNESS: 71 year old male with a significant past medical history of pancreatic insufficiency, IBS, CVA, CAD, ESRD on HD, IDDM, brought in by his for evaluation of abdominal distension, pain, early satiety for the past 2 days prior to admission. Patient denies fever, chills, nausea, vomiting, diarrhea, constipation, and is passing flatus. Patient follows Dr. Lozano and has been treated for abdominal distension with paracentesis and rifaximin in the past. No history of SBP. Patient is here with , who is a nurse, who states that he has been having a cough productive of yellow sputum for the past three weeks. He also follows Dr. Mitchell for COPD and pulmonary nodule, recent chest CT showing bronchiectasis 12/08. " Selected Entries 11/30/16 11/30/16 11/30/16 07:39 09:02 10:00 Breakfast 100% Lunch Temperature 99.1 F 98.2 F 11/30/16 11/30/16 11/30/16 14:52 18:20 21:10 Breakfast Lunch 100% Temperature 98.9 F 98.9 F 98.4 F 12/01/16 07:43 Breakfast Lunch Temperature 98.6 F Laboratory Tests 11/29/16 11/30/16 12/01/16 09:30 08:05 07:30 WBC 14.5 H 11.3 H 12.1 H Pt and denies signs of dysphagia, but early satiety with ascites. Pt has complicated medical hx, on fluid restriction, on HD.Per pt;'s , Ryan improved appetite but increased blood sugar,. Remeron made pt confused. 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: CVA Cardiovascular: Yes: CAD, HTN Pulmonary: Yes: COPD Gastrointestinal: Yes: Ascites Renal/: Yes: Renal Failure, Hemodialysis Endocrine: Yes: Diabetes Mellitus - Past Surgical History Past Surgical History: Yes: AV Fistula/Graft - Smoking History Smoking history: Former smoker Have you smoked in the past 12 months: No If you are a former smoker, when did you quit?: 1995 - Alcohol/Substance Use Hx Alcohol Use: No History of Substance Use: reports: None - Social History ADL: Independent History of Recent Travel: No History - Admission Reason For Visit: PULMON HYPERTENSION,ESRD,ABDOMINAL DISTENSION - Diagnostics X-ray: Report Reviewed - General Mental Status: Alert and Oriented, Awake and Alert, Able to Follow Commands Attention: Intact Ability to Follow Directions: Good Head/Neck Control: WFL - Hearing Hearing: Functional Speech Evaluation - Communication Primary Language: BURMESE Communication: Yes: Within Normal Limits Oral Expression Ability: Yes: No Impairment - Speech Production Able to Make Needs Known: Yes: WNL Intelligibility: Yes: WNL - Speech Characteristics Voice Loudness: Normal Voice Pitch: Yes: Normal Voice Phonatory-based Quality: Yes: Normal Speech Pattern: Normal Speech Clarity: < 100% Nasal Resonance: Normal Articulation: Yes: Precise Rate of Speech: Intact - Language/Auditory Comprehension Follows: Yes: 1 Stage Simple Commands - Language/Verbal Expression Able to Respond to Simple Queries: Yes: WNL Able to Communicate Wants and Needs: Yes: WNL Functional Communication Status: Yes: WNL - Swallow Evaluation/Bedside Assessment Current Nutritional Intake: Regular, Thin Liquids Oral Secretions: Yes: WFL Dentition: Yes: Adequate, Dental Appliance Upper, Dental Appliance Lower Facial Symmetry at Rest: Symmetrical Facial Symmetry on Retraction: Symmetrical Facial Movement: Controlled Against Resistance Opening: Normal Against Resistance Closing: Normal Pucker Lips: Normal Smile: Normal Lingual Movement: Normal, Symmetric Lingual Speed of Movement: Normal Lingual Movement Strgth Against Opposition: Normal Lingual Movement Characteristics: Normal Velopharyngeal Movement: Normal Laryngeal Elevation: WFL Laryngeal Movement: Able to Palpate Rate of Intake: WFL Bolus Size: WFL Labial Seal: WFL Chewing: WFL Oral Prep Time: WFL A-P Transit: WFL Pocketing: None Timing of Swallow: WFL Coughing/Throat Clear: No Change in Voice: No Recommendations - Speech Evaluation, Impression/Plan Impression: Swallowing overtly intact. - Dysphagia Impressions/Plan Dysphagia Impressions: No Impairment *Silent aspiration: cannot be R/O at bedside Recommendations: Other (Several meals thoughout the day) - Recommendations Diet Consistency: Regular, Dietary Restrictions/MD (RD consult regarding rec to increase nutritional/caloric intake.) Medication Administration: Whole with water Liquids: Thin Liquids Supplement: Nepro (Pt drinks this, once daily)
[2016-12-01] MEDS: RIFAXIMIN 550 MG TABLET (UD) PO SCH ×2 (12:01→21:39)
[2016-12-01] MEDS: ASPIRIN COATED 81 MG TABLET.EC PO SCH (12:01)
[2016-12-01] MEDS: CINACALCET HCL 30 MG TAB (FP) PO SCH (12:01)
[2016-12-01] MEDS: PANTOPRAZOLE 20 MG TABLET (FP) PO SCH ×2 (12:01→21:39)
[2016-12-01] MEDS: ALLOPURINOL 100 MG TABLET (FP) PO SCH (12:01)
[2016-12-01] MEDS: TORSEMIDE 20 MG TABLET (FP) PO SCH (12:01)
[2016-12-01] MEDS: CARVEDILOL 25 MG TABLET (FP) PO SCH ×2 (12:02→21:38)
[2016-12-01] MEDS: ARFORMOTEROL TARTRATE 15 MCG/2 ML VIAL NEB SCH ×2 (12:11→22:52)
[2016-12-01 12:20] LABS: CREATININE 2.8 mg/dL (0.7-1.3); TROPONIN I 0.08 ng/ml (0.00-0.05)
--- NOTE | 2016-12-01 13:38 | PN ---
Physical Exam: SUBJECTIVE: Patient seen and examined while getting dialysis, no new complaints , abdominal pain improving. Afebrile, no white count. Denies chest pain , shortness of breath, abdominal pain. +BM, +flatus. OBJECTIVE: Vital Signs Period Temp Pulse Resp BP Sys/Macdonald Pulse Ox Last 24 Hr 98.4 F-98.9 F 61-79 16-24 119-160/54-80 95-96 GENERAL: The patient is awake, alert,oriented getting HD HEAD: Normal with no signs of trauma. EYES: PERRL, extraocular movements intact, sclera anicteric, conjunctiva clear. No ptosis. ENT: Ears normal, nares patent, oropharynx clear without exudates, moist mucous membranes. NECK: Trachea midline, full range of motion, supple. LUNGS: Breath sounds equal, clear to auscultation bilaterally, no wheezes, no crackles, no accessory muscle use. HEART: Regular rate and rhythm, S1, S2 without murmur, rub or gallop. ABDOMEN: Soft, tender RLL, nondistended, normoactive bowel sounds, no guarding, + rebound, no hepatosplenomegaly, no masses. EXTREMITIES: 2+ pulses, warm, well-perfused, no edema. NEUROLOGICAL: CN 2-12 intact, gait not observed PSYCH: Normal mood, normal affect. SKIN: Warm, dry, normal turgor, no rashes or lesions noted CBC, BMP 12/01/16 07:30 12/01/16 11:15 Active Medications Generic Name Dose Route Start Last Admin Trade Name Freq PRN Reason Stop Dose Admin Acetaminophen 650 mg 11/29/16 22:30 Tylenol - PO Q6H PRN FEVER OR PAIN Allopurinol 100 mg 11/30/16 10:00 12/01/16 12:01 Zyloprim - PO 100 mg DAILY [facility] Administration Arformoterol Tartrate 1 amp 11/30/16 10:00 12/01/16 12:11 Brovana (Restricted To Pulmonology/Resp) - NEB Not Given BID [facility] Aspirin 81 mg 11/30/16 10:00 12/01/16 12:01 Ecotrin - PO 81 mg DAILY [facility] Administration Calcium Acetate 667 mg 11/30/16 08:00 12/01/16 12:01 Phoslo - PO 667 mg TIDCM [facility] Administration Carvedilol 25 mg 11/30/16 10:00 12/01/16 12:02 Coreg - PO Not Given BID [facility] Cinacalcet 30 mg 11/30/16 10:00 12/01/16 12:01 Sensipar - PO 30 mg DAILY [facility] Administration Insulin Aspart 1 vial 11/30/16 07:00 12/01/16 12:12 Novolog Vial Sliding Scale - SQ Not Given ACHS COUNTS INCLUDE 234 BEDS AT [facility] Protocol Insulin Detemir 10 units 11/30/16 22:00 11/30/16 21:41 Levemir Vial SQ Not Given HS [facility] Pancrelipase 1 cap 11/30/16 08:00 12/01/16 12:[address] 6,000 Units Capsule PO 1 cap TIDCM [facility] Administration Pantoprazole Sodium 20 mg 11/30/16 10:00 12/01/16 12:01 Protonix - PO 20 mg BID [facility] Administration Rifaximin 550 mg 11/29/16 22:00 12/01/16 12:01 Xifaxan - PO 550 mg BID [facility] Administration Tamsulosin HCl 0.4 mg 11/30/16 08:30 12/01/16 12:01 Flomax - PO 0.4 mg DAILY@0830 [facility] Administration Torsemide 40 mg 11/30/16 10:00 12/01/16 12:01 Demadex - PO 40 mg DAILY [facility] Administration ASSESSMENT/PLAN: 71 year old male with past medical history of CVA, CAD, HTN, COPD, ascites,, ESRF on HD (MWF), IDDM, presents with abdominal pain distension fort 2 days prior admission. Patient had mild fever on admission with leukocytosis, ID called to evaluate. It currently does not look like patient is infected. His white count came down the next day and has not had a fever, not on any antibiotics. If patient starts to develop fever, rise in white count or associated symptoms, then would benefit from paracentesis to rule out SBP. Watch off antibiotics for now. -Ascities -IBS -pancreatic insufficiency -COPD -pulmonary nodule -IDDM -ESRD -CVA -CAD #Ascites most likely secondary to hepatic congestion; r/o obstruction -HD may help with fluid overload -cont rifaximin -watch off antibiotics -if patient starts to develop fever, white count, get paracentesis; (before giving antibiotics) -appreciate GI #r/o pna -patient with cough, sputum production -looks more like fluid/bronchiectasis component with COPD will sign off for now; can re call if patient starts to develop fever or white count Visit type - Emergency Visit Emergency Visit: Yes ED Registration Date: 11/29/16 Care time: The patient presented to the Emergency Department on the above date and was hospitalized for further evaluation of their emergent condition. - New Patient This patient is new to me today: No - Critical Care Critical Care patient: No
--- NOTE | 2016-12-01 14:08 | CON.CARD ---
Consult Consult Specialty:: Cardiology Referred by:: Triston Oliver MD Reason for Consultation:: Chest tightness - History of Present Illness Chief Complaint: Chest tightness History of Present Illness: 71 y/o male h/o ESRD->HD, [id number] COPD, nonobstrictive CAD, HTN/ HCVD. DM, PAF->SR, severe cardiomyopathy, anemia of chronic disease, chronic pancreatitis with insufficiency, losartan-associated angioedema, c. diff colitis , IBS with bacterial overgrowth admitted with acute abdominal distension and pain. He developed non-exertional chest tightness this AM without associated dyspnea, near or true syncope, palpitations, orthopnea, PND or LE edema, currently asymptomatic. 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 Cardio/Vascular: Yes: CAD, HTN Pulmonary: Yes: COPD Gastrointestinal: Yes: Ascites Renal/: Yes: Renal Failure, Hemodialysis Endocrine: Yes: Diabetes Mellitus - Past Surgical History Past Surgical History: Yes: AV Fistula/Graft - Alcohol/Substance Use Hx Alcohol Use: No History of Substance Use: reports: None - Smoking History Smoking history: Former smoker Have you smoked in the past 12 months: No If you are a former smoker, when did you quit?: 1995 - Social History ADL: Independent History of Recent Travel: No Home Medications - Allergies Allergies/Adverse Reactions: Allergies Allergy/AdvReac Type Severity Reaction Status Date / Time losartan Allergy angioedema Verified 11/29/16 08:45 - Home Medications Home Medications: Ambulatory Orders Aspirin [ASA -] 81 mg PO ASDIR 08/10/16 Multivit-Min/FA/Lycopen/Lutein [Centrum Silver Tablet] 1 each PO DAILY 08/10/16 Tamsulosin HCl [Flomax -] 0.4 mg PO DAILY 08/10/16 Vit C/Vit E AC/Lut/Copper/Zinc [Preservision Lutein Softgel] 1 each PO DAILY Allopurinol [Zyloprim -] 100 mg PO DAILY tablet 08/12/16 Calcium Acetate [Phoslo -] 667 mg PO TIDCM capsule 08/12/16 Cinacalcet HCl [Sensipar -] 30 mg PO DAILY tab 08/12/16 Torsemide [Demadex -] 40 mg PO BID 08/16/16 Carvedilol [Coreg -] 25 mg PO BID 11/29/16 Insulin Degludec [Tresiba Flextouch U-100] 10 unit SQ HS 11/29/16 Insulin Lispro [Humalog] 100 unit SQ ASDIR 11/29/16 Lipase/Protease/Amylase [Zenpep Dr 25,000 Units Capsule] 1 each PO TID 11/29/16 Omeprazole 20 mg PO BID 11/29/16 Review of Systems - Review of Systems Cardiovascular: reports: Chest Pain Vital Signs: Vital Signs Temperature 98.6 F 12/01/16 07:43 Pulse Rate 61 12/01/16 12:13 Respiratory Rate 18 12/01/16 11:20 Blood Pressure 149/59 12/01/16 12:13 O2 Sat by Pulse Oximetry (%) 96 12/01/16 09:00 Constitutional: Yes: No Distress, Calm Neck: Yes: Supple Respiratory: Yes: Regular, Diminished, On Nasal O2 Gastrointestinal: Yes: Normal Bowel Sounds, Soft Cardiovascular: Yes: Regular Rate and Rhythm JVD: No Carotid Bruit: No Heart Sounds: Yes: S1, S2 Murmur: Yes: Systolic Murmur, Grade 2 Edema: No - Other Data Labs, Other Data: CBC, BMP 12/01/16 07:30 12/01/16 11:15 Troponin, BNP 12/01/16 12/01/16 11:15 11:15 Troponin I 0.08 H D Cancelled Troponin, BNP 12/01/16 12/01/16 11:15 11:15 Troponin I 0.08 H D Cancelled NSR @ 73 RBBB, PVC Ejection Fraction %: LVEF < 40 % Imaging - Results Chest X-ray: Report Reviewed (Some congestion) Problem List - Problems (1) Ascites Code(s): R18.8 - OTHER ASCITES Qualifiers: Ascites type: other type Qualified Code(s): R18.8 - Other ascites (2) ESRD (end stage renal disease) on dialysis Code(s): N18.6 - END STAGE RENAL DISEASE Z99.2 - DEPENDENCE ON RENAL DIALYSIS (3) Pulmonary hypertension associated with ESRD on dialysis Code(s): I27.2 - OTHER SECONDARY PULMONARY HYPERTENSION N18.6 - END STAGE RENAL DISEASE Z99.2 - DEPENDENCE ON RENAL DIALYSIS (4) CAD (coronary artery disease) Code(s): I25.10 - ATHSCL HEART DISEASE OF [place] CORONARY ARTERY W/O ANG PCTRS Qualifiers: Coronary Disease-Associated Artery/Lesion type: [place] artery [place] vs. transplanted heart: [place] heart Associated angina: without angina Qualified Code(s): I25.10 - Atherosclerotic heart disease of [place] coronary artery without angina pectoris (5) Hypertensive cardiomyopathy Code(s): I11.9 - HYPERTENSIVE HEART DISEASE WITHOUT HEART FAILURE I43 - CARDIOMYOPATHY IN DISEASES CLASSIFIED ELSEWHERE Qualifiers: Heart failure presence: with heart failure Qualified Code(s): I11.0 - Hypertensive heart disease with heart failure; I43 - Cardiomyopathy in diseases classified elsewhere (6) Acute on chronic systolic (congestive) heart failure Code(s): I50.23 - ACUTE ON CHRONIC SYSTOLIC (CONGESTIVE) HEART FAILURE Assessment/Plan 08/11/2016 Moderately dilated with severely decreased LV systolic dysfunction, mod BLANK, severe TR, mod-severe MR (eccentric jet), mild [place], [place] 1. Chest pain suspect elevated filling pressures, ruling out [place] 2. H/o ARB-associated angioedema 2. CAD nonobstructive 3. Acute on chronic severe LV systolic dysfunction and mod-severe MR, severe TR with ascites 4. Insulin dependent DM 5. ESRD on HD 6. HTN 7. COPD on home O2 as needed 8. Hypercholesterolemia 9. Hypertensive cardiomyopathy with failure 10. Anemia of chronic disease PLAN: 1. Avoid ACEI or ARB, add BiDil for additional pre and afterload reduction 2. Volume removal via UF with HD and Demadex 40 qd 3. Continue Carvedilol 25 bid, ASA 81 qd 4. ICD consideration as outpatient, hesitant for repeat R&LHc 5. Thank you for consultative opportunity
[2016-12-01 14:22] LABS: ERYTHROCYTE SEDIMENTATION RATE 24 mm/hr (0-20)
[2016-12-01] MEDS: ISOSORBIDE MONONITRATE 30 MG TAB.SR.24H (FP) PO SCH (17:16)
--- NOTE | 2016-12-01 17:25 | PN ---
Progress Note (short form) - Note Progress Note: continues to have diffuse abdominal discomfort despite HD and resumptioin of rifaximin moved to tele for chest discomfort with HD today, now resolved Vital Signs Period Temp Pulse Resp BP Sys/Macdonald Pulse Ox Last 24 Hr 98 F-98.9 F 61-79 16-20 119-160/54-80 95-96 cor-rrr lungs clear abd - soft, diffuse abdominal discomfort to palpation ext no edema CBC, BMP 12/01/16 07:30 12/01/16 11:15 a/p persistent leukocytosis and abdominal discomfort with ascites- would obtain paracentesis- d/w dr wilcox who is in agreement will send blood cultures as well esrd/hd
[2016-12-01] MEDS: hydrALAZINE HCL 25 MG TABLET (FP) PO SCH (21:39)
[2016-12-01] MEDS: INSULIN DETEMIR 100 UNITS/ML MDV SQ SCH (21:41)
--- NOTE | 2016-12-01 22:12 | PN ---
Progress Note, Physician Chief Complaint: SEEN IN DIALYSIS C/O CHEST PAIN TRANSFERRED TO TELEMETRY STAT EKG STAT CARDIAC ENZYMES - Current Medication List Current Medications: Active Medications Acetaminophen (Tylenol -) 650 mg PO Q6H PRN PRN Reason: FEVER OR PAIN Allopurinol (Zyloprim -) 100 mg PO DAILY [facility] Last Admin: 12/01/16 12:01 Dose: 100 mg Arformoterol Tartrate (Brovana (Restricted To Pulmonology/Resp) -) 1 amp NEB BID [facility] Last Admin: 12/01/16 12:11 Dose: Not Given Aspirin (Ecotrin -) 81 mg PO DAILY [facility] Last Admin: 12/01/16 12:01 Dose: 81 mg Calcium Acetate (Phoslo -) 667 mg PO TIDCM [facility] Last Admin: 12/01/16 17:16 Dose: 667 mg Carvedilol (Coreg -) 25 mg PO BID [facility] Last Admin: 12/01/16 21:38 Dose: 25 mg Cinacalcet (Sensipar -) 30 mg PO DAILY [facility] Last Admin: 12/01/16 12:01 Dose: 30 mg Hydralazine HCl (Apresoline -) 25 mg PO BID [facility] Last Admin: 12/01/16 21:39 Dose: 25 mg Insulin Aspart (Novolog Vial Sliding Scale -) 1 vial SQ ACHS [facility] PRN Reason: Protocol Last Admin: 12/01/16 21:39 Dose: Not Given Insulin Detemir (Levemir Vial) 10 units SQ HS [facility] Last Admin: 12/01/16 21:41 Dose: Not Given Isosorbide Mononitrate (Imdur -) 30 mg PO DAILY [facility] Last Admin: 12/01/16 17:16 Dose: 30 mg Pancrelipase (Creon Dr 6,000 Units Capsule) 1 cap PO TIDCM [facility] Last Admin: 12/01/16 17:16 Dose: 1 cap Pantoprazole Sodium (Protonix -) 20 mg PO BID [facility] Last Admin: 12/01/16 21:39 Dose: 20 mg Rifaximin (Xifaxan -) 550 mg PO BID [facility] Last Admin: 12/01/16 21:39 Dose: 550 mg Tamsulosin HCl (Flomax -) 0.4 mg PO DAILY@0830 [facility] Last Admin: 12/01/16 12:01 Dose: 0.4 mg Torsemide (Demadex -) 40 mg PO DAILY [facility] Last Admin: 12/01/16 12:01 Dose: 40 mg - Objective Vital Signs: Vital Signs Temperature 99.6 F 12/01/16 17:00 Pulse Rate 81 12/01/16 17:00 Respiratory Rate 18 12/01/16 17:00 Blood Pressure 122/51 12/01/16 17:00 O2 Sat by Pulse Oximetry (%) 96 12/01/16 12:30 Constitutional: Yes: Moderate Distress Eyes: Yes: WNL HENT: Yes: WNL Neck: Yes: WNL Cardiovascular: Yes: WNL Respiratory: Yes: Diminished Gastrointestinal: Yes: Ascites, Tenderness Genitourinary: Yes: WNL Musculoskeletal: Yes: Muscle Weakness Extremities: Yes: WNL Edema: Yes Peripheral Pulses WNL: Yes Integumentary: Yes: WNL Wound/Incision: Yes: Clean/Dry Neurological: Yes: Unsteady Gait ...Motor Strength: LLE, RLE Psychiatric: Yes: Other Labs: CBC, BMP 12/01/16 07:30 12/01/16 11:15 Problem List - Problems (1) Abdominal distention Code(s): R14.0 - ABDOMINAL DISTENSION (GASEOUS) (2) Ascites Code(s): R18.8 - OTHER ASCITES Qualifiers: Ascites type: other type Qualified Code(s): R18.8 - Other ascites (3) IBS (irritable bowel syndrome) Code(s): K58.9 - IRRITABLE BOWEL SYNDROME WITHOUT DIARRHEA Qualifiers: Irritable bowel syndrome type: without diarrhea Qualified Code(s): K58.9 - Irritable bowel syndrome without diarrhea (4) ESRD (end stage renal disease) on dialysis Code(s): N18.6 - END STAGE RENAL DISEASE Z99.2 - DEPENDENCE ON RENAL DIALYSIS (5) Pulmonary hypertension associated with ESRD on dialysis Code(s): I27.2 - OTHER SECONDARY PULMONARY HYPERTENSION N18.6 - END STAGE RENAL DISEASE Z99.2 - DEPENDENCE ON RENAL DIALYSIS (6) COPD (chronic obstructive pulmonary disease) Code(s): J44.9 - CHRONIC OBSTRUCTIVE PULMONARY DISEASE, UNSPECIFIED Qualifiers : COPD type: unspecified COPD Qualified Code(s): J44.9 - Chronic obstructive pulmonary disease, unspecified (7) Diabetes Code(s): E11.9 - TYPE 2 DIABETES MELLITUS WITHOUT COMPLICATIONS Qualifiers: Diabetes mellitus type: type 2 Diabetes mellitus complication status: with kidney complications Diabetes mellitus complication detail: with nephropathy Diabetes mellitus vermin exterminator insulin use: without skilled nursing use Qualified Code(s): E11.21 - Type 2 diabetes mellitus with diabetic nephropathy; Z79.4 - alf (current) use of insulin (8) Chest pain Code(s): R07.9 - CHEST PAIN, UNSPECIFIED Assessment/Plan TRANSFER TO TELEMETRY CARDIAC ENZYMES NEG CARDIAC EVAL CHEST XRAY PULM EVAL HD PER RENAL
[2016-12-02] MEDS: INSULIN SLIDING SCALE (NOVOLOG) 1 VIAL SQ SCH ×2 (06:10→11:54)
[2016-12-02] MEDS: LIPASE/PROTEASE/AMYLASE 6,000 UNIT CAPSULE PO SCH ×3 (08:02→11:54)
[2016-12-02] MEDS: CALCIUM ACETATE 667 MG CAPSULE (FP) PO SCH ×3 (08:02→11:55)
[2016-12-02] MEDS: TAMSULOSIN HCL 0.4 MG CAP.ER.24H (FP) PO SCH (08:02)
[2016-12-02] MEDS: ISOSORBIDE MONONITRATE 30 MG TAB.SR.24H (FP) PO SCH (09:12)
[2016-12-02] MEDS: ASPIRIN COATED 81 MG TABLET.EC PO SCH (09:12)
[2016-12-02] MEDS: RIFAXIMIN 550 MG TABLET (UD) PO SCH (09:12)
[2016-12-02] MEDS: PANTOPRAZOLE 20 MG TABLET (FP) PO SCH (09:12)
[2016-12-02] MEDS: ALLOPURINOL 100 MG TABLET (FP) PO SCH (09:12)
[2016-12-02] MEDS: hydrALAZINE HCL 25 MG TABLET (FP) PO SCH (09:12)
[2016-12-02] MEDS: CARVEDILOL 25 MG TABLET (FP) PO SCH (09:12)
[2016-12-02] MEDS: TORSEMIDE 20 MG TABLET (FP) PO SCH (09:12)
[2016-12-02] MEDS: CINACALCET HCL 30 MG TAB (FP) PO SCH (09:13)
[2016-12-02 09:51] LABS: INR 1.11 (0.82-1.09); PROTHROMBIN TIME (PATIENT) 12.2 SEC (9.98-11.88)
--- NOTE | 2016-12-02 10:31 | DS ---
Physical Examination Vital Signs: Vital Signs Temperature 98.7 F 12/02/16 05:55 Pulse Rate 66 12/02/16 05:55 Respiratory Rate 18 12/02/16 05:55 Blood Pressure 110/54 12/02/16 05:55 O2 Sat by Pulse Oximetry (%) 96 12/01/16 21:00 Constitutional: Yes: No Distress Eyes: Yes: WNL HENT: Yes: WNL Neck: Yes: WNL Cardiovascular: Yes: WNL Respiratory: Yes: On Nasal O2, Rhonchi Gastrointestinal: Yes: WNL, Ascites, Other (IMPROVED ASCITES) Musculoskeletal: Yes: WNL Extremities: Yes: WNL Edema: No Peripheral Pulses WNL: Yes Integumentary: Yes: WNL Wound/Incision: Yes: Clean/Dry Neurological: Yes: WNL ...Motor Strength: WNL Psychiatric: Yes: WNL Labs: CBC, BMP 12/01/16 07:30 12/01/16 11:15 Discharge Summary Reason For Visit: PULMON HYPERTENSION,ESRD,ABDOMINAL DISTENSION Current Active Problems Abdominal distention (Acute) Acute on chronic systolic (congestive) heart failure (Acute) Ascites (Acute) Chest pain (Acute) Hypertensive cardiomyopathy (Acute) IBS (irritable bowel syndrome) (Acute) ESRD (end stage renal disease) on dialysis (Chronic) Pulmonary hypertension associated with ESRD on dialysis (Chronic) Procedures: Principal: CT ABD/LABS Other Procedures: XRAYS Hospital Course: ADMITTED WORSENING ASCITES OF ABDOMEN, IV ABX GIVEN, ESRD ON HD, CHEST PAIN R/O ACUTE CORONARY SYNDROME, CAN F/U OUT PATIENT Condition: Improved - Instructions Diet, Activity, Other Instructions: RENAL Referrals: Triston Oliver MD [Primary Care Provider] - Disposition: HOME - Home Medications Comprehensive Discharge Medication List: Ambulatory Orders Aspirin [ASA -] 81 mg PO ASDIR 08/10/16 Multivit-Min/FA/Lycopen/Lutein [Centrum Silver Tablet] 1 each PO DAILY 08/10/16 Tamsulosin HCl [Flomax -] 0.4 mg PO DAILY 08/10/16 Vit C/Vit E AC/Lut/Copper/Zinc [Preservision Lutein Softgel] 1 each PO DAILY Allopurinol [Zyloprim -] 100 mg PO DAILY tablet 08/12/16 Calcium Acetate [Phoslo -] 667 mg PO TIDCM capsule 08/12/16 Cinacalcet HCl [Sensipar -] 30 mg PO DAILY tab 08/12/16 Torsemide [Demadex -] 40 mg PO BID 08/16/16 Carvedilol [Coreg -] 25 mg PO BID 11/29/16 Insulin Degludec [Tresiba Flextouch U-100] 10 unit SQ HS 11/29/16 Insulin Lispro [Humalog] 100 unit SQ ASDIR 11/29/16 Lipase/Protease/Amylase [Zenpep Dr 25,000 Units Capsule] 1 each PO TID 11/29/16 Omeprazole 20 mg PO BID 11/29/16
[2016-12-02 10:41] VITALS: BP 140/64; PULSE 70; TEMP 98
[2016-12-02] MEDS: ARFORMOTEROL TARTRATE 15 MCG/2 ML VIAL NEB SCH (10:55)
--- NOTE | 2016-12-02 12:47 | EKG ---
Test Reason : Blood Pressure : / mmHG Vent. Rate : 073 BPM Atrial Rate : 073 BPM P-R Int : 164 ms QRS Dur : 182 ms QT Int : 470 ms P-R-T Axes : 072 088 -72 degrees QTc Int : 517 ms SINUS RHYTHM WITH FREQUENT and consecutive PREMATURE VENTRICULAR COMPLEXES RIGHT BUNDLE BRANCH BLOCK T WAVE ABNORMALITY, CONSIDER INFEROLATERAL ISCHEMIA ABNORMAL ECG WHEN COMPARED WITH ECG OF 29-NOV-2016 09:49, PREMATURE VENTRICULAR COMPLEXES ARE NOW PRESENT Confirmed by BREANA RUGGIERO MD ([id number]) on 12/02/2016 12:47:43 PM Referred By: Jason CHAVES Confirmed By:BREANA RUGGIERO MD
--- NOTE | 2016-12-02 13:11 | PN ---
Progress Note, Physician History of Present Illness: Discharged prior to being seen - Current Medication List Current Medications: Active Medications Acetaminophen (Tylenol -) 650 mg PO Q6H PRN PRN Reason: FEVER OR PAIN Allopurinol (Zyloprim -) 100 mg PO DAILY [facility] Last Admin: 12/02/16 09:12 Dose: 100 mg Arformoterol Tartrate (Brovana (Restricted To Pulmonology/Resp) -) 1 amp NEB BID [facility] Last Admin: 12/02/16 10:55 Dose: 1 amp Aspirin (Ecotrin -) 81 mg PO DAILY [facility] Last Admin: 12/02/16 09:12 Dose: 81 mg Calcium Acetate (Phoslo -) 667 mg PO TIDCM [facility] Last Admin: 12/02/16 11:55 Dose: 667 mg Carvedilol (Coreg -) 25 mg PO BID [facility] Last Admin: 12/02/16 09:12 Dose: 25 mg Cinacalcet (Sensipar -) 30 mg PO DAILY [facility] Last Admin: 12/02/16 09:13 Dose: 30 mg Hydralazine HCl (Apresoline -) 25 mg PO BID [facility] Last Admin: 12/02/16 09:12 Dose: 25 mg Insulin Aspart (Novolog Vial Sliding Scale -) 1 vial SQ ACHS [facility] PRN Reason: Protocol Last Admin: 12/02/16 11:54 Dose: 2 units Insulin Detemir (Levemir Vial) 10 units SQ HS [facility] Last Admin: 12/01/16 21:41 Dose: Not Given Isosorbide Mononitrate (Imdur -) 30 mg PO DAILY [facility] Last Admin: 12/02/16 09:12 Dose: 30 mg Pancrelipase (Creon Dr 6,000 Units Capsule) 1 cap PO TIDCM [facility] Last Admin: 12/02/16 11:54 Dose: 1 cap Pantoprazole Sodium (Protonix -) 20 mg PO BID [facility] Last Admin: 12/02/16 09:12 Dose: 20 mg Rifaximin (Xifaxan -) 550 mg PO BID [facility] Last Admin: 12/02/16 09:12 Dose: 550 mg Tamsulosin HCl (Flomax -) 0.4 mg PO DAILY@0830 [facility] Last Admin: 12/02/16 08:02 Dose: Not Given Torsemide (Demadex -) 40 mg PO DAILY [facility] Last Admin: 12/02/16 09:12 Dose: 40 mg - Objective Vital Signs: Vital Signs Temperature 98 F 12/02/16 10:00 Pulse Rate 70 12/02/16 10:00 Respiratory Rate 20 12/02/16 10:00 Blood Pressure 140/64 12/02/16 10:00 O2 Sat by Pulse Oximetry (%) 97 12/02/16 09:00 Labs: CBC, BMP 12/01/16 07:30 12/01/16 11:15 INR, PTT INR 1.11 (0.82-1.09) 12/02/16 09:11 Problem List - Problems (1) Ascites Code(s): R18.8 - OTHER ASCITES Qualifiers: Ascites type: other type Qualified Code(s): R18.8 - Other ascites (2) ESRD (end stage renal disease) on dialysis Code(s): N18.6 - END STAGE RENAL DISEASE Z99.2 - DEPENDENCE ON RENAL DIALYSIS (3) Pulmonary hypertension associated with ESRD on dialysis Code(s): I27.2 - OTHER SECONDARY PULMONARY HYPERTENSION N18.6 - END STAGE RENAL DISEASE Z99.2 - DEPENDENCE ON RENAL DIALYSIS (4) CAD (coronary artery disease) Code(s): I25.10 - ATHSCL HEART DISEASE OF [place] CORONARY ARTERY W/O ANG PCTRS Qualifiers: Coronary Disease-Associated Artery/Lesion type: [place] artery [place] vs. transplanted heart: [place] heart Associated angina: without angina Qualified Code(s): I25.10 - Atherosclerotic heart disease of [place] coronary artery without angina pectoris (5) Hypertensive cardiomyopathy Code(s): I11.9 - HYPERTENSIVE HEART DISEASE WITHOUT HEART FAILURE I43 - CARDIOMYOPATHY IN DISEASES CLASSIFIED ELSEWHERE Qualifiers: Heart failure presence: with heart failure Qualified Code(s): I11.0 - Hypertensive heart disease with heart failure; I43 - Cardiomyopathy in diseases classified elsewhere (6) Acute on chronic systolic (congestive) heart failure Code(s): I50.23 - ACUTE ON CHRONIC SYSTOLIC (CONGESTIVE) HEART FAILURE Assessment/Plan 08/11/2016 Moderately dilated with severely decreased LV systolic dysfunction, mod BLANK, severe TR, mod-severe MR (eccentric jet), mild AR, SC 1. Chest pain suspect elevated filling pressures, ruled out HI 2. H/o ARB-associated angioedema 2. CAD nonobstructive 3. Acute on chronic severe LV systolic dysfunction and mod-severe MR, severe TR with ascites 4. Insulin dependent DM 5. ESRD on HD 6. HTN 7. COPD on home O2 as needed 8. Hypercholesterolemia 9. Hypertensive cardiomyopathy with failure 10. Anemia of chronic disease PLAN: 1. Avoid ACEI or ARB, continue BiDil 2. Volume removal via UF with HD and Demadex 40 qd 3. Continue Carvedilol 25 bid, ASA 81 qd 4. ICD consideration as outpatient, hesitant for repeat R&LHc 5. D/bean home today, will have office call for f/u appt
[2016-12-04 00:11] LABS: HEP B SURFACE AB Reactive (.)
== END 2016-12-02 14:11 | disposition home or self-care (01) | DRG 314 ==
LOC: JER 08:42 → JERBED 10:44 → J5S 20:07 → J4W 12-01 12:12
PROVIDERS: ADMIT Family Medicine; ATTEND Family Medicine
PROC: 5A1D60Z (ICD-10-PCS; principal; 2016-11-29)
DX: I27.2 Other secondary pulmonary hypertension (principal); I50.23 Acute on chronic systolic (congestive) heart failure; N18.6 End stage renal disease; I13.2 Hypertensive heart and chronic kidney disease with heart failure and with stage 5 chronic kidney disease, or end stage renal disease; R18.8 Other ascites; K86.2 Cyst of pancreas; E11.21 Type 2 diabetes mellitus with diabetic nephropathy; Z99.2 Dependence on renal dialysis; J44.9 Chronic obstructive pulmonary disease, unspecified; Z99.81 Dependence on supplemental oxygen; Z79.4 Long term (current) use of insulin; I25.10 Atherosclerotic heart disease of native coronary artery without angina pectoris; E78.00 Pure hypercholesterolemia, unspecified; M10.9 Gout, unspecified; K59.00 Constipation, unspecified; R16.1 Splenomegaly, not elsewhere classified; R14.0 Abdominal distension (gaseous); E87.5 Hyperkalemia; K58.9 Irritable bowel syndrome, unspecified; D72.829 Elevated white blood cell count, unspecified; Z87.891 Personal history of nicotine dependence; R01.1 Cardiac murmur, unspecified; D63.1 Anemia in chronic kidney disease
CPT/HCPCS: 36415; 71010-TC; 74000-TC; 74176-TC; 76700-TC; 80053; 82550; 82565; 83690; 83735; 84100; 84484; 84520; 85025; 85027; 85610; 85651; 86704; 86706; 86708; 87040; 87340; 93005; 93010; 94640; 99285-25

== ENCOUNTER 2017-03-02 16:43 | Inpatient (IN) | payer OTHER, BC ==
[2017-03-02 17:55] LABS: BASOPHIL 0.5 % (0-2.0); EOSINOPHIL 1.1 % (0-4.5); MCH 26.5 pg (25.7-33.7); MCHC 31.8 g/dl (32.0-35.9); MEAN CELL VOLUME 83.3 fl (80-96); MEAN PLT VOLUME 7.5 fl (7.5-11.1); NEUTROPHILS 81.9 % (42.8-82.8); PLATELET COUNT 349 K/MM3 (134-434); RDW 19.9 % (11.9-15.9)
--- NOTE | 2017-03-02 18:12 | PDOC ---
History of Present Illness - General Chief Complaint: Shortness of Breath Stated Complaint: PCP: SENT Time Seen by Provider: 03/02/17 17:27 History Source: Patient, Primary Care Provider (dr wilcox) Exam Limitations: No Limitations - History of Present Illness Initial Comments: 03/02/17 18:00 71 y/o male presents to the ED with complaints of symptomatic ascites causing shortness of breath and generalized fatigue. Patient has history of end-stage renal disease renal failure, pancreatic cyst, and currently receives dialysis 3 times a week with his last dialysis done today. Patient was seen by Dr. Wilcox in his office who evaluated the patient and felt patient requires paracentesis along with admission. Timing/Duration: getting worse Severity: moderate Associated Symptoms: reports: shortness of breath, weakness Past History - Travel Traveled outside of the country in the last 30 days: No Close contact w/someone who was outside of country & ill: No - Past Medical History Allergies/Adverse Reactions: Allergies Allergy/AdvReac Type Severity Reaction Status Date / Time losartan Allergy angioedema Verified 03/02/17 16:49 Home Medications: Ambulatory Orders Aspirin [ASA -] 81 mg PO ASDIR 08/10/16 Multivit-Min/FA/Lycopen/Lutein [Centrum Silver Tablet] 1 each PO DAILY 08/10/16 Tamsulosin HCl [Flomax -] 0.4 mg PO DAILY 08/10/16 Vit C/Vit E AC/Lut/Copper/Zinc [Preservision Lutein Softgel] 1 each PO DAILY Insulin Degludec [Tresiba Flextouch U-100] 10 unit SQ HS 11/29/16 Lipase/Protease/Amylase [Zenpep Dr 25,000 Units Capsule] 1 each PO TID 11/29/16 Omeprazole 20 mg PO BID 11/29/16 Acetaminophen [Tylenol .Regular Strength -] 650 mg PO Q6H PRN #0 tablet Arformoterol Tartrate [Brovana -] 1 amp NEB BID amp 12/02/16 Carvedilol [Coreg -] 25 mg PO BID #60 tablet 12/02/16 Cinacalcet HCl [Sensipar -] 30 mg PO DAILY tab 12/02/16 Torsemide [Demadex -] 40 mg PO DAILY tablet 12/02/16 Allopurinol [Zyloprim -] 100 mg PO Q2D 03/02/17 Linaclotide [Linzess] 145 mcg PO DAILY 03/02/17 Sevelamer Carbonate [Renvela] 800 mg PO TIDCM 03/02/17 Anemia: No Asthma: No Cancer: No Cardiac Disorders: Yes (CAD) CVA: No COPD: Yes (EMPHYSEMA) CHF: No Dementia: No Diabetes: Yes (DM2) Dialysis: Yes (tue) GI Disorders: No Disorders: No HTN: Yes Hypercholesterolemia: Yes Liver Disease: No Seizures: No Thyroid Disease: No Other medical history: left upper fistula - Surgical History Abdominal Surgery: No Appendectomy: No Cardiac Surgery: Yes (ANGIOGRAPHY 2009 IN [facility]) Cholecystectomy: No Lung Surgery: No Neurologic Surgery: No Orthopedic Surgery: No - Immunization History Immunization Up to Date: Yes - Psycho/Social/Smoking Cessation Hx Anxiety: No Suicidal Ideation: No Smoking History: Former smoker Have you smoked in the past 12 months: No If you are a former smoker, when did you quit?: 1995 Information on smoking cessation initiated: No 'Breaking Loose' booklet given: 09/05/15 Hx Alcohol Use: No Drug/Substance Use Hx: No Substance Use Type: None Hx Substance Use Treatment: No Patient Lives Alone: No Lives with/in: spouse/SO Review of Systems - Review of Systems Able to Perform ROS?: No Is the patient limited Malaysian proficient: No Constitutional: Yes: Weakness HEENTM: No: Symptoms Reported Respiratory: Yes: Shortness of Breath Cardiac (ROS): No: Chest Pain, Lightheadedness, Palpitations, Chest Tightness ABD/GI: Yes: Abdominal Distended, Constipated (intermittent). No: Diarrhea, Nausea Musculoskeletal: No: Symptoms Reported Integumentary: No: Symptoms Reported Neurological: Yes: Weakness (mild generalized) Hematologic/Lymphatic: No: Symptoms Reported *Physical Exam - Vital Signs Last Vital Signs Temp Pulse Resp BP Pulse Ox 98.2 F 87 18 127/62 95 03/02/17 16:49 03/02/17 16:49 03/02/17 16:49 03/02/17 16:49 03/02/17 16:49 - Physical Exam General Appearance: Yes: Nourished, Appropriately Dressed. No: Apparent Distress HEENT: positive: EOMI, MARIAJOSE. negative: Pale Conjunctivae Neck: positive: Supple Respiratory/Chest: positive: Lungs Clear, Normal Breath Sounds. negative: Respiratory Distress, Accessory Muscle Use Cardiovascular: positive: Regular Rhythm, Regular Rate. negative: Murmur Gastrointestinal/Abdominal: positive: Soft, Distended, Other (positive fluid wave. - caput medussa) Extremity: positive: Normal Capillary Refill. negative: Pedal Edema Integumentary: positive: Dry, Warm Neurologic: positive: Normal Mood/Affect (w/ lethargy), Motor Strength 5/5 Heart Score/ECG Review - QRS Widened: RBBB (rate 87 with PVC. unchanged from November 2016) ED Treatment Course - LABORATORY CBC & Chemistry Diagram: 03/02/17 17:42 03/02/17 17:42 - RADIOLOGY Radiology Studies Ordered: Category Date Time Status CHEST X-RAY PORTABLE* [RAD] Stat Radiology 03/02/17 17:56 Ordered KUB (KID UR & BLAD) [RAD] Stat Radiology 03/02/17 17:30 Ordered ABDOMEN US [US] Stat Ultrasound 03/02/17 18:07 Ordered Medical Decision Making - Medical Decision Making 03/02/17 18:34 Patient sent in by Dr. aguilar in for evaluation of abdominal distention/ ascites. Patient has had paracentesis in the past secondary to the above last procedure being January 2016. Patient arrives dyspneic with abdominal distention and positive fluid wave. Patient ordered for labs including ammonia, KUB, chest x-ray and abdominal ultrasound. Case discussed with Dr. Marcus and was notified about elevated white count of 15.6 and recommending 1 g of ceftriaxone. Case also discussed with Dr. Oliver who recommends consultation to Dr. Gregg. *DC/Admit/Observation/Transfer Diagnosis at time of Disposition: Ascites, Shortness of breath, Weakness - Discharge Dispostion Admit: Yes - Referrals Referrals: Triston Oliver MD [Primary Care Provider] -
[2017-03-02] MEDS ORDERED: CEFTRIAXONE 1 GM in DEXTROSE 5%-WATER - 50 ML IVPB ONE (18:16)
[2017-03-02 18:17] LABS: INR 1.12 (0.82-1.09); PROTHROMBIN TIME (PATIENT) 12.4 SEC (9.98-11.88)
[2017-03-02] MEDS ORDERED: CEFTRIAXONE 50 ML ONE (18:29)
[2017-03-02 18:47] LABS: ALBUMIN 1.8 g/dl (3.4-5.0); ANION GAP 10 (8-16); BILIRUBIN,TOTAL 0.9 mg/dL (0.2-1.0); CALCIUM 10.6 mg/dL (8.5-10.1); CO2 28 mmol/L (21-32); CREATININE 3.2 mg/dL (0.7-1.3); GLUCOSE,RANDOM 166 mg/dL (74-106); SGPT/ALT 15 U/L (12-78); TOT PROT 7.6 g/dl (6.4-8.2)
[2017-03-02 18:48] LABS: ALK PHOS 305 U/L (45-117)
[2017-03-02 19:02] LABS: SGOT/AST 18 U/L (15-37)
--- NOTE | 2017-03-02 20:05 | CON.GI ---
Consult Consult Specialty:: gastroenterology Referred by:: Dr Oliver - History of Present Illness History of Present Illness: 71 y/o male presents to the ED with complaints of symptomatic ascites causing shortness of breath and generalized fatigue. Patient has history of end-stage renal disease renal failure, pancreatic cyst, and currently receives dialysis 3 times a week with his last dialysis done today. Patient was seen by Dr. Lozano in his office who evaluated the patient and felt patient requires paracentesis along with admission. 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 Cardio/Vascular: Yes: CAD, HTN Pulmonary: Yes: COPD Gastrointestinal: Yes: Ascites Renal/: Yes: Renal Failure, Hemodialysis Endocrine: Yes: Diabetes Mellitus - Past Surgical History Past Surgical History: Yes: AV Fistula/Graft - Alcohol/Substance Use Hx Alcohol Use: No History of Substance Use: reports: None - Smoking History Smoking history: Former smoker Have you smoked in the past 12 months: No If you are a former smoker, when did you quit?: 1995 - Social History ADL: Independent History of Recent Travel: No Home Medications - Allergies Allergies/Adverse Reactions: Allergies Allergy/AdvReac Type Severity Reaction Status Date / Time losartan Allergy angioedema Verified 03/02/17 16:49 - Home Medications Home Medications: Ambulatory Orders Aspirin [ASA -] 81 mg PO Q2D 08/10/16 Tamsulosin HCl [Flomax -] 0.4 mg PO DAILY 08/10/16 Omeprazole 20 mg PO DAILY 11/29/16 Allopurinol [Zyloprim -] 100 mg PO DAILY 03/02/17 Atorvastatin Ca [Lipitor] 20 mg PO HS 03/02/17 Carvedilol [Coreg -] 6.25 mg PO DAILY 03/02/17 Cinacalcet HCl [Sensipar] 60 mg PO DAILY 03/02/17 Linaclotide [Linzess] 145 mcg PO DAILY 03/02/17 Lipase/Protease/Amylase [Zenpep Dr 25,000 Units Capsule] 1 each PO TID 03/02/17 Mirtazapine [Remeron -] 15 mg PO HS 03/02/17 Multivit-Min/FA/Lycopen/Lutein [Centrum Silver Tablet] 1 each PO DAILY 03/02/17 Sevelamer Carbonate [Renvela] 800 mg PO TID 03/02/17 Torsemide [Demadex -] 40 mg PO BID 03/02/17 Review of Systems Unable to obtain ROS, reason: clinical condition Physical Exam-GI Vital Signs: Vital Signs Temperature 98.2 F 03/02/17 16:49 Pulse Rate 87 03/02/17 16:49 Respiratory Rate 18 03/02/17 16:49 Blood Pressure 127/62 03/02/17 16:49 O2 Sat by Pulse Oximetry (%) 95 03/02/17 16:49 Constitutional: Yes: Well Nourished Eyes: Yes: Conjunctiva Clear HENT: Yes: Atraumatic Neck: Yes: Supple Cardiovascular: Yes: Regular Rate and Rhythm Respiratory: Yes: CTA Bilaterally Gastrointestinal Inspection: Yes: Ascites, Distention ...Palpate: Yes: Soft. No: Firm/Rigid, Guarding, Hepatomegaly, Mass, Pulsatile Mass, Splenomegaly, Tenderness ...Percussion: Yes: Tympanitic Labs: INR, PTT INR 1.12 (0.82-1.09) 03/02/17 17:42 CBC,CMP WBC 13.3 K/mm3 (4.0-10.0) H 03/03/17 07:35 RBC 3.82 M/mm3 (4.00-5.60) L 03/03/17 07:35 Hgb 9.9 GM/dL (11.7-16.9) L 03/03/17 07:35 Hct 31.9 % (35.4-49) L 03/03/17 07:35 MCV 83.4 fl (80-96) 03/03/17 07:35 MCH 25.8 pg (25.7-33.7) 03/03/17 07:35 MCHC 30.9 g/dl (32.0-35.9) L 03/03/17 07:35 RDW 19.6 % (11.9-15.9) H 03/03/17 07:35 Plt Count 317 K/MM3 (134-434) 03/03/17 07:35 MPV 6.9 fl (7.5-11.1) L 03/03/17 07:35 Neutrophils % 81.9 % (42.8-82.8) 03/02/17 17:42 Lymphocytes % 4.7 % (8-40) L 03/02/17 17:42 Monocytes % 11.8 % (3.8-10.2) H 03/02/17 17:42 Eosinophils % 1.1 % (0-4.5) D 03/02/17 17:42 Basophils % 0.5 % (0-2.0) 03/02/17 17:42 Sodium 136 mmol/L (136-145) 03/02/17 17:42 Potassium 4.0 mmol/L (3.5-5.1) 03/02/17 17:42 Chloride 98 mmol/L (98-107) 03/02/17 17:42 Carbon Dioxide 28 mmol/L (21-32) 03/02/17 17:42 Anion Gap 10 (8-16) 03/02/17 17:42 BUN 20 mg/dL (7-18) H D 03/02/17 17:42 Creatinine 3.2 mg/dL (0.7-1.3) H D 03/02/17 17:42 Creat Clearance w eGFR 19.24 (>60) 03/02/17 17:42 POC Glucometer 149 UNITS (()) 03/03/17 17:39 Random Glucose 166 mg/dL (74-106) H D 03/02/17 17:42 Calcium 10.6 mg/dL (8.5-10.1) H 03/02/17 17:42 Total Bilirubin 0.9 mg/dL (0.2-1.0) D 03/02/17 17:42 AST 18 U/L (15-37) 03/02/17 17:42 ALT 15 U/L (12-78) 03/02/17 17:42 Alkaline Phosphatase 305 U/L (45-117) H 03/02/17 17:42 Ammonia 29.51 umol/L (11-32) 03/02/17 18:36 Total Protein 7.6 g/dl (6.4-8.2) D 03/02/17 17:42 Albumin 1.8 g/dl (3.4-5.0) L D 03/02/17 17:42 Problem List - Problems (1) Ascites Assessment/Plan: for paracentesis by IR Code(s): R18.8 - OTHER ASCITES Qualifiers: (2) Abdominal distention Assessment/Plan: secondary to possible fecal impaction R>KUB miralax 34 grams bid Code(s): R14.0 - ABDOMINAL DISTENSION (GASEOUS) (3) Altered mental status Assessment/Plan: possible secondary to sepsis, ?SBP R> ceftriaxone 1 gram daily Code(s): R41.82 - ALTERED MENTAL STATUS, UNSPECIFIED
[2017-03-02] MEDS: CARVEDILOL 6.25 MG TABLET (FP) PO SCH (22:26)
[2017-03-02] MEDS: MIRTAZAPINE 15 MG TABLET (FP) PO SCH (22:26)
[2017-03-03 00:42] VITALS: BMI 24.3
[2017-03-03] MEDS ORDERED: SEVELAMER CARBONATE 800 MG TAB (FP) PO SCH (08:00)
[2017-03-03] MEDS: TAMSULOSIN HCL 0.4 MG CAP.ER.24H (FP) PO SCH (08:13)
[2017-03-03 08:31] LABS: MCH 25.8 pg (25.7-33.7); MCHC 30.9 g/dl (32.0-35.9); MEAN CELL VOLUME 83.4 fl (80-96); MEAN PLT VOLUME 6.9 fl (7.5-11.1); PLATELET COUNT 317 K/MM3 (134-434); RDW 19.6 % (11.9-15.9); WHITE BLOOD COUNT 13.3 K/mm3 (4.0-10.0)
--- NOTE | 2017-03-03 09:58 | HP ---
Admitting History and Physical - Primary Care Physician PCP: Triston Oliver - Admission Chief Complaint: LETHARGY/ASCITES/PERITONITIS History of Present Illness: 71 y/o male presents to the ED with complaints of symptomatic ascites causing shortness of breath and generalized fatigue. Patient has history of end-stage renal disease renal failure, pancreatic cyst, and currently receives dialysis 3 times a week with his last dialysis done today. Patient was seen by Dr. Lozano in his office who evaluated the patient and felt patient requires paracentesis along with admission. 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 Cardiovascular: Yes: CAD, HTN Pulmonary: Yes: COPD Gastrointestinal: Yes: Ascites Renal/: Yes: Renal Failure, Hemodialysis Endocrine: Yes: Diabetes Mellitus - Past Surgical History Past Surgical History: Yes: AV Fistula/Graft - Smoking History Smoking history: Former smoker Have you smoked in the past 12 months: No If you are a former smoker, when did you quit?: 1995 - Alcohol/Substance Use Hx Alcohol Use: No History of Substance Use: reports: None - Social History ADL: Independent History of Recent Travel: No Home Medications - Allergies Allergies/Adverse Reactions: Allergies Allergy/AdvReac Type Severity Reaction Status Date / Time losartan Allergy angioedema Verified 03/02/17 16:49 - Home Medications Home Medications: Ambulatory Orders Aspirin [ASA -] 81 mg PO Q2D 08/10/16 Tamsulosin HCl [Flomax -] 0.4 mg PO DAILY 08/10/16 Omeprazole 20 mg PO DAILY 11/29/16 Allopurinol [Zyloprim -] 100 mg PO DAILY 03/02/17 Atorvastatin Ca [Lipitor] 20 mg PO HS 03/02/17 Carvedilol [Coreg -] 6.25 mg PO DAILY 03/02/17 Cinacalcet HCl [Sensipar] 60 mg PO DAILY 03/02/17 Linaclotide [Linzess] 145 mcg PO DAILY 03/02/17 Lipase/Protease/Amylase [Zenpep Dr 25,000 Units Capsule] 1 each PO TID 03/02/17 Mirtazapine [Remeron -] 15 mg PO HS 03/02/17 Multivit-Min/FA/Lycopen/Lutein [Centrum Silver Tablet] 1 each PO DAILY 03/02/17 Sevelamer Carbonate [Renvela] 800 mg PO TID 03/02/17 Torsemide [Demadex -] 40 mg PO BID 03/02/17 Review of Systems Findings/Remarks: LETHARGIC - Review of Systems Constitutional: reports: Lethargy, Loss of Appetite, Weakness Eyes: reports: No Symptoms HENT: reports: No Symptoms Neck: reports: No Symptoms Cardiovascular: reports: No Symptoms Respiratory: reports: No Symptoms Gastrointestinal: reports: Abdominal Pain Genitourinary: reports: No Symptoms, Other Musculoskeletal: reports: Muscle Weakness Integumentary: reports: No Symptoms Neurological: reports: Weakness, Other Endocrine: reports: No Symptoms Hematology/Lymphatic: reports: No Symptoms Psychiatric: reports: Other Physical Examination Vital Signs: Vital Signs Temperature 98.4 F 03/03/17 06:00 Pulse Rate 86 03/03/17 06:00 Respiratory Rate 20 03/03/17 06:00 Blood Pressure 134/67 03/03/17 06:00 O2 Sat by Pulse Oximetry (%) 95 03/02/17 20:45 Constitutional: Yes: Moderate Distress Eyes: Yes: WNL HENT: Yes: WNL Neck: Yes: WNL Cardiovascular: Yes: WNL Respiratory: Yes: WNL Gastrointestinal: Yes: Ascites, Distention, Tenderness Renal/: Yes: Other Musculoskeletal: Yes: Muscle Weakness Extremities: Yes: WNL Edema: No Peripheral Pulses WNL: Yes Integumentary: Yes: WNL Wound/Incision: Yes: Clean/Dry Neurological: Yes: WNL ...Motor Strength: LLE, RLE Psychiatric: Yes: WNL Labs: CBC, BMP 03/03/17 07:35 Problem List - Problems (1) Ascites Code(s): R18.8 - OTHER ASCITES Qualifiers: (2) Shortness of breath Code(s): R06.02 - SHORTNESS OF BREATH (3) Weakness Code(s): R53.1 - WEAKNESS (4) Abdominal distention Code(s): R14.0 - ABDOMINAL DISTENSION (GASEOUS) (5) Cerebrovascular accident (CVA) Code(s): I63.9 - CEREBRAL INFARCTION, UNSPECIFIED (6) Diabetes Code(s): E11.9 - TYPE 2 DIABETES MELLITUS WITHOUT COMPLICATIONS Qualifiers: Diabetes mellitus type: type 2 Diabetes mellitus complication status: with kidney complications Diabetes mellitus complication detail: with nephropathy Diabetes mellitus manager long term care insulin use: without mcc use Qualified Code(s): E11.21 - Type 2 diabetes mellitus with diabetic nephropathy; Z79.4 - jail (current) use of insulin (7) ESRD (end stage renal disease) on dialysis Code(s): N18.6 - END STAGE RENAL DISEASE Z99.2 - DEPENDENCE ON RENAL DIALYSIS (8) Hyperlipidemia Code(s): E78.5 - HYPERLIPIDEMIA, UNSPECIFIED Qualifiers: Hyperlipidemia type: pure hypercholesterolemia (9) Hypertension Code(s): I10 - ESSENTIAL (PRIMARY) HYPERTENSION Qualifiers: Hypertension type: essential hypertension Qualified Code(s): I10 - Essential (primary) hypertension (10) Lung nodules Code(s): R91.8 - OTHER NONSPECIFIC ABNORMAL FINDING OF LUNG FIELD (11) Pulmonary hypertension associated with ESRD on dialysis Code(s): I27.2 - OTHER SECONDARY PULMONARY HYPERTENSION N18.6 - END STAGE RENAL DISEASE Z99.2 - DEPENDENCE ON RENAL DIALYSIS Assessment/Plan PERITONEAL TAP TODAY FOR DX AND TX CT HEAD AND ABD/PELVIS WITH AND WITHOUT CONTRAST R/O NEOPLASM/CVA/INFECTION, DISCUSSED WITH NEPHROLOGY AGREES ON IV CONTRAST ID CONSULT GI F/U
[2017-03-03] MEDS ORDERED: CEFTRIAXONE 1 GM in DEXTROSE 5%-WATER - 50 ML IVPB SCH (10:00)
--- NOTE | 2017-03-03 10:25 | CON.NEP ---
Consult Consult Specialty:: Nephrology (Amando/Freddie) Referred by:: Dr. Oliver Reason for Consultation:: ESRD on HD, AMS - History of Present Illness Chief Complaint: Lethargy and weakness History of Present Illness: This is a 71 year old Gentleman with PMhx of ESRD on HD (MWF), Pancreatic Cysts , Pancreatic insuffiency, CAD, Hypertension, DM who presented with complaints of lethargy, weakness and increasing abd ascities. Pt last had dialysis yesterday w/o complication. Pt referred to ED to get paracentesis. reports that lethargy has been worsening over 1 week. No fever, chills, Abd pain, N/V/ D. Pt is Anuric (only produces 5cc of urine daily) 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 LIAISON: Yes: CVA Cardio/Vascular: Yes: CAD, HTN Pulmonary: Yes: COPD Gastrointestinal: Yes: Ascites Renal/: Yes: Renal Failure, Hemodialysis Endocrine: Yes: Diabetes Mellitus - Past Surgical History Past Surgical History: Yes: AV Fistula/Graft - Alcohol/Substance Use Hx Alcohol Use: No History of Substance Use: reports: None - Smoking History Smoking history: Former smoker Have you smoked in the past 12 months: No If you are a former smoker, when did you quit?: 1995 - Social History ADL: Independent History of Recent Travel: No Home Medications - Allergies Allergies/Adverse Reactions: Allergies Allergy/AdvReac Type Severity Reaction Status Date / Time losartan Allergy angioedema Verified 03/02/17 16:49 - Home Medications Home Medications: Ambulatory Orders Aspirin [ASA -] 81 mg PO Q2D 08/10/16 Tamsulosin HCl [Flomax -] 0.4 mg PO DAILY 08/10/16 Omeprazole 20 mg PO DAILY 11/29/16 Allopurinol [Zyloprim -] 100 mg PO DAILY 03/02/17 Atorvastatin Ca [Lipitor] 20 mg PO HS 03/02/17 Carvedilol [Coreg -] 6.25 mg PO DAILY 03/02/17 Cinacalcet HCl [Sensipar] 60 mg PO DAILY 03/02/17 Linaclotide [Linzess] 145 mcg PO DAILY 03/02/17 Lipase/Protease/Amylase [Zenpep Dr 25,000 Units Capsule] 1 each PO TID 03/02/17 Mirtazapine [Remeron -] 15 mg PO HS 03/02/17 Multivit-Min/FA/Lycopen/Lutein [Centrum Silver Tablet] 1 each PO DAILY 03/02/17 Sevelamer Carbonate [Renvela] 800 mg PO TID 03/02/17 Torsemide [Demadex -] 40 mg PO BID 03/02/17 Review of Systems - Review of Systems Constitutional: reports: Lethargy, Loss of Appetite, Malaise Eyes: reports: No Symptoms HENT: reports: No Symptoms Neck: reports: No Symptoms Cardiovascular: reports: No Symptoms Respiratory: reports: No Symptoms Gastrointestinal: reports: Bloating. denies: Abdominal Pain, Diarrhea, Melena, Nausea Genitourinary: reports: No Symptoms Musculoskeletal: reports: Muscle Weakness Neurological: reports: Change in LOC, Confusion, Weakness Nephrology Consult - Height Height: 5 ft 10 in - Weight Weight: 170 lb - BMI Body Mass Index (BMI): 24.3 - Lab Results CBC,BMP: CBC, BMP 03/03/17 07:35 Anion Gap: Anion Gap Anion Gap 10 (8-16) 03/02/17 17:42 - Imaging Chest X-ray: Report Reviewed Ultrasound: Report Reviewed - Physical Examination Vital Signs: Vital Signs Temperature 98.4 F 03/03/17 06:00 Pulse Rate 86 03/03/17 06:00 Respiratory Rate 20 03/03/17 06:00 Blood Pressure 134/67 03/03/17 06:00 O2 Sat by Pulse Oximetry (%) 95 03/02/17 20:45 Constitutional: Yes: Well Nourished, No Distress Eyes: Yes: Conjunctiva Clear HENT: Yes: Atraumatic, Normocephalic Neck: Yes: Supple Cardiovascular: Yes: Regular Rate and Rhythm Respiratory: Yes: Regular, CTA Bilaterally. No: Rales, Rhonchi, SOB Gastrointestinal: Yes: Normal Bowel Sounds, Ascites. No: Tenderness Renal/: No: Bladder Distention, CVA Tenderness - Left, Beasley Present Edema: No Problem List - Problems (1) Ascites Code(s): R18.8 - OTHER ASCITES Qualifiers: (2) Weakness Code(s): R53.1 - WEAKNESS (3) Abdominal distention Code(s): R14.0 - ABDOMINAL DISTENSION (GASEOUS) (4) CAD (coronary artery disease) Code(s): I25.10 - ATHSCL HEART DISEASE OF [place] CORONARY ARTERY W/O ANG PCTRS Qualifiers: Coronary Disease-Associated Artery/Lesion type: [place] artery [place] vs. 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 #AMS etiology appears to be infectious vs. metabolic Check CT head f/u cultures, for paracentesis #Abd Ascities/Hepatocellular disease prior CT of the Abd showed small liver suggestive of advanced hepatocellular disease for repeat ct with contrast today ammonia levels are WNL GI follow up paracentesis #ESRD on HD no aucte indication for dialysis today completed full treatment yesterday, no signs of uremia as BUN is low will plan for dialysis tomorrow #Leukocytosis r/o occult infection ordered blood cultures today Check abd fluid for cell count and culture #Hypercalcemia Check PTH levels holding Sensipar b/c of AMS #Hx of Hypertension BP is within acceptable limits on Coreg, continue for now Thank you Will follow Franklyn Frazier DO Current Medications Carvedilol (Coreg -) 6.25 mg PO BID [facility] Last Admin: 03/02/17 22:26 Dose: Not Given Ceftriaxone Sodium (Rocephin 1gm Ivpb (Pre-Docked)) 1 gm IVPB DAILY [facility] Dextrose/Sodium Chloride (D5-Ns -) 1,000 mls @ 42 mls/hr IV ASDIR [facility] Mirtazapine (Remeron -) 15 mg PO HS [facility] Last Admin: 03/02/17 22:26 Dose: Not Given Tamsulosin HCl (Flomax -) 0.4 mg PO DAILY@0830 [facility] Last Admin: 03/03/17 08:13 Dose: Not Given
[2017-03-03] MEDS: DEXTROSE 5%-NORMAL SALINE 1,000 ML IV SCH (10:52)
[2017-03-03] MEDS: CARVEDILOL 6.25 MG TABLET (FP) PO SCH ×2 (11:00→22:11)
--- NOTE | 2017-03-03 13:46 | PN ---
Progress Note (short form) - Note Progress Note: ID Full note dictated Altered mental status no fever Abd cyst large thick wall etiology unclear no nodularity Abscess less likely ? neoplastic Selected Entries 03/02/17 03/02/17 16:49 20:27 Temperature 98.2 F Pulse Rate [ 89 Apical] Respiratory 22 Rate Blood Pressure 141/84 [Right Arm] Laboratory Tests 03/02/17 03/02/17 03/03/17 17:42 17:42 07:35 WBC 15.0 H 13.3 H Hgb 9.9 L Hct 31.9 L Plt Count 317 BUN 20 H D Random Glucose 166 H D Total Bilirubin 0.9 D AST 18 ALT 15 Alkaline Phosphatase 305 H Albumin 1.8 L D Assessment Large abd cyst unclear etiology Plan Stop antibiotics if cultures no growth Surgical consult ? aspiration or is it contraindicated Discussed Dr Benito Gregg MD Problem List - Problems (1) Abdominal cyst Code(s): K66.8 - OTHER SPECIFIED DISORDERS OF PERITONEUM (2) End stage renal disease Code(s): N18.6 - END STAGE RENAL DISEASE
--- NOTE | 2017-03-03 14:35 | CONS ---
DATE OF CONSULTATION: DATE OF DICTATION: 03/03/2017 HISTORY OF PRESENT ILLNESS: This is a 71-year-old [place] male with end-stage renal disease who I am asked to see for evaluation of altered mental status and possible infection. According to the GI note, the patient has complaints of symptomatic ascites causing shortness of breath and fatigue. He also has a history of a pancreatic cyst and currently is on dialysis three times a week. He was seen by Dr. Lozano in the outpatient office who felt that the patient needed a paracentesis. He has had no fever, but his white count was noted to be elevated on admission. Since admission, he had an abdominal CT scan which showed a cystic encapsulated thick-walled lesion measuring 30 x 17 x 25 cm with the wall approximately 4 mm. It originated in the cul-de-sac near the seminal vesicles and extended to the upper abdomen. Density of the fluid appeared increased as compared to previous ascetic fluid. An air air-fluid level was noted with the fluid appearing complex. The patient is alert, but lethargic and can office no history. The history was obtained from talking to his . PAST MEDICAL HISTORY: As noted above, end-stage renal disease, hypertension, coronary artery disease, COPD, diabetes mellitus, AV fistula. MEDICATIONS: Aspirin, tamsulosin, omeprazole, allopurinol, atorvastatin, carvedilol, Linzess, Remeron, multivitamins, Demadex. ALLERGIES: LOSARTAN. SOCIAL HISTORY: , he used to smoke, no history of substance abuse. FAMILY HISTORY: Reviewed and noncontributory. REVIEW OF SYSTEMS: Respiratory: No cough or shortness of breath. Cardiac: No chest pain, palpitations, or syncope. Gastrointestinal: No abdominal pain, vomiting, diarrhea, blood per rectum, or hematemesis. Genitourinary: End-stage renal disease. PHYSICAL EXAMINATION: General: He was a lethargic male who weighed 170 pounds. Vital signs: Temperature 98.2, pulse 89, blood pressure 140/84, respirations 20. Neck: Supple. Lungs: Clear to percussion and auscultation. Heart: S1, S2, regular rhythm, no audible murmur. Abdomen: Distended with a palpable cyst, nontender, no rebound. Extremities: AV fistula on the left arm. LABORATORY DATA: White count 15,000, hemoglobin 10.4, platelets 349 with a normal differential count. Calcium 10.6, AST 18, ALT 15, alkaline phosphatase 305, ammonia 29. Chest x-ray shows cardiomegaly, chronic lung disease. ASSESSMENT: Large cystic structure originating in the seminal vesicle extending towards upper abdomen with fluid fluid levels. Would expect that if this were an abscess that he would be more acutely ill. However etiology of the cyst presently unclear as per Dr. Lam, the radiologist. He is currently on ceftriaxone, which I will continue at least until tomorrow at which time I will stop it if his blood cultures are no growth. He may need a diagnostic aspiration of the cyst, but this should be done in conjunction with a surgical consult first to make sure of the potential safety of doing the aspiration. Will order echinococcal serology along with a QuantiFERON gold. Case was discussed with Dr. Oliver. Consideration of transfer to a tertiary care center for further evaluation of the cyst ? [facility] JB ESCOBEDO M.D. JOSE [id number] MTDJuan Alberto
[2017-03-03] MEDS: cefTRIAXone 1 GM/50 ML BAG (PRE-DOCKED) IVPB SCH (14:39)
--- NOTE | 2017-03-03 15:34 | EKG ---
Test Reason : Blood Pressure : / mmHG Vent. Rate : 087 BPM Atrial Rate : 086 BPM P-R Int : 158 ms QRS Dur : 178 ms QT Int : 438 ms P-R-T Axes : 069 100 -10 degrees QTc Int : 527 ms POOR DATA QUALITY, INTERPRETATION MAY BE ADVERSELY AFFECTED SINUS RHYTHM with PREMATURE VENTRICULAR COMPLEXES RIGHT BUNDLE BRANCH BLOCK T WAVE ABNORMALITY, CONSIDER LATERAL ISCHEMIA ABNORMAL ECG Confirmed by MONIK PURCELL, BREANA ([id number]) on 03/03/2017 3:34:38 PM Referred By: Confirmed By:BREANA RUGGIERO MD
[2017-03-03] MEDS: MIRTAZAPINE 15 MG TABLET (FP) PO SCH (22:11)
--- NOTE | 2017-03-03 23:44 | CONSULT ---
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 Cardio/Vascular: Yes: CAD, HTN Pulmonary: Yes: COPD Gastrointestinal: Yes: Ascites Renal/: Yes: Renal Failure, Hemodialysis Endocrine: Yes: Diabetes Mellitus - Past Surgical History Past Surgical History: Yes: AV Fistula/Graft - Alcohol/Substance Use Hx Alcohol Use: No History of Substance Use: reports: None - Smoking History Smoking history: Former smoker Have you smoked in the past 12 months: No If you are a former smoker, when did you quit?: 1995 - Social History ADL: Independent History of Recent Travel: No Home Medications - Allergies Allergies/Adverse Reactions: Allergies Allergy/AdvReac Type Severity Reaction Status Date / Time losartan Allergy angioedema Verified 03/02/17 16:49 - Home Medications Home Medications: Ambulatory Orders Aspirin [ASA -] 81 mg PO Q2D 08/10/16 Tamsulosin HCl [Flomax -] 0.4 mg PO DAILY 08/10/16 Omeprazole 20 mg PO DAILY 11/29/16 Allopurinol [Zyloprim -] 100 mg PO DAILY 03/02/17 Atorvastatin Ca [Lipitor] 20 mg PO HS 03/02/17 Carvedilol [Coreg -] 6.25 mg PO DAILY 03/02/17 Cinacalcet HCl [Sensipar] 60 mg PO DAILY 03/02/17 Linaclotide [Linzess] 145 mcg PO DAILY 03/02/17 Lipase/Protease/Amylase [Zenpep Dr 25,000 Units Capsule] 1 each PO TID 03/02/17 Mirtazapine [Remeron -] 15 mg PO HS 03/02/17 Multivit-Min/FA/Lycopen/Lutein [Centrum Silver Tablet] 1 each PO DAILY 03/02/17 Sevelamer Carbonate [Renvela] 800 mg PO TID 03/02/17 Torsemide [Demadex -] 40 mg PO BID 03/02/17 Review of Systems - Review of Systems Constitutional: reports: Other (Fatugue). denies: Chills, Fever Cardiovascular: reports: Shortness of Breath. denies: Chest Pain Gastrointestinal: reports: Other (Abdominal distention) Neurological: denies: Change in LOC Pain Intensity: 3 Physical Exam Vital Signs: Vital Signs Temperature 100.8 F H 03/03/17 19:43 Pulse Rate 86 03/03/17 19:43 Respiratory Rate 18 03/03/17 19:43 Blood Pressure 119/56 03/03/17 19:43 O2 Sat by Pulse Oximetry (%) 98 03/03/17 09:00 Constitutional: Yes: Calm Cardiovascular: Yes: Regular Rate and Rhythm Respiratory: Yes: Regular Gastrointestinal: Yes: Distention. No: Tenderness, Rebound Neurological: Yes: Alert Labs: CBC, BMP 03/03/17 07:35 Imaging - Results Cat Scan: Report Reviewed, Image Reviewed Problem List - Problems (1) Abdominal cyst Code(s): K66.8 - OTHER SPECIFIED DISORDERS OF [place]ONE[place] (2) Ascites Code(s): R18.8 - OTHER ASCITES Qualifiers: (3) End stage renal disease Code(s): N18.6 - END STAGE RENAL DISEASE (4) Shortness of breath Code(s): R06.02 - SHORTNESS OF BREATH (5) Abdominal distention Code(s): R14.0 - ABDOMINAL DISTENSION (GASEOUS) Assessment/Plan 71 male with large intraabdominal cyst/collection Unclear etiology Would rule out Echinococcus as an etiology I ruled out would then have Interventional Radiology perform a percutaneous drainage
--- NOTE | 2017-03-04 08:53 | PN ---
Progress Note (short form) - Note Progress Note: No acute events No changes Still distended Vital Signs Period Temp Pulse Resp BP Sys/Macdonald Pulse Ox Last 24 Hr 97.5 F-100.8 F 82-86 18-19 119-139/56-69 97-98 Abd distended, hard, no rebound CBC, BMP 03/03/17 07:35 03/02/17 17:42 Await Echinococcus results IR drainage if negative Problem List - Problems (1) Abdominal cyst Code(s): K66.8 - OTHER SPECIFIED DISORDERS OF [place]ONE[place] (2) Ascites Code(s): R18.8 - OTHER ASCITES Qualifiers: (3) End stage renal disease Code(s): N18.6 - END STAGE RENAL DISEASE (4) Shortness of breath Code(s): R06.02 - SHORTNESS OF BREATH (5) Abdominal distention Code(s): R14.0 - ABDOMINAL DISTENSION (GASEOUS)
[2017-03-04] MEDS ORDERED: EPOETIN ALFA 10,000 UNIT/1 ML VIAL IVPUSH ONE (10:00)
[2017-03-04 10:26] LABS: MCH 25.9 pg (25.7-33.7); MCHC 31.1 g/dl (32.0-35.9); MEAN CELL VOLUME 83.2 fl (80-96); MEAN PLT VOLUME 7.3 fl (7.5-11.1); PLATELET COUNT 329 K/MM3 (134-434); RDW 19.6 % (11.9-15.9); WHITE BLOOD COUNT 14.1 K/mm3 (4.0-10.0)
[2017-03-04 11:15] LABS: ALBUMIN 1.6 g/dl (3.4-5.0); ANION GAP 11 (8-16); CALCIUM 11.7 mg/dL (8.5-10.1); CO2 24 mmol/L (21-32); GLUCOSE,RANDOM 123 mg/dL (74-106)
[2017-03-04 11:19] LABS: ALK PHOS 300 U/L (45-117); BILIRUBIN,TOTAL 0.9 mg/dL (0.2-1.0); CREATININE 5.3 mg/dL (0.7-1.3); PHOSPHOROUS 5.6 mg/dL (2.5-4.9); SGOT/AST 18 U/L (15-37); SGPT/ALT 13 U/L (12-78)
--- NOTE | 2017-03-04 13:47 | PN ---
Progress Note (short form) - Note Progress Note: Renal Follow up for ESRD on HD Pt seen and examined during dialysis BP stable, goal UF IS 2L no acute complaints poor appetite as per access with good flow Vital Signs Temperature 98.4 F 03/04/17 09:35 Pulse Rate 80 03/04/17 12:10 Respiratory Rate 18 03/04/17 12:10 Blood Pressure 113/59 03/04/17 12:10 O2 Sat by Pulse Oximetry (%) 97 03/03/17 21:00 Intake & Output 03/01/17 03/02/17 03/03/17 03/04/17 23:59 23:59 23:59 23:59 Intake Total 50 550 Balance 50 550 Weight 170 lb 170 lb 169 lb 8 oz Gen: NAD CVS: RRR, NO M/R Lungs: CTA Abd: Distended, no tenderness Ext: No edema CBC, BMP 03/04/17 09:40 03/04/17 09:40 Laboratory Tests 03/04/17 09:40 Calcium 11.7 H Phosphorus 5.6 H D Albumin 1.6 L Current Medications Carvedilol (Coreg -) 6.25 mg PO BID [facility] Last Admin: 03/03/17 22:11 Dose: Not Given Ceftriaxone Sodium (Rocephin 1gm Ivpb (Pre-Docked)) 1 gm IVPB DAILY [facility] Last Admin: 03/03/17 14:39 Dose: 1 gm Dextrose/Sodium Chloride (D5-Ns -) 1,000 mls @ 42 mls/hr IV ASDIR [facility] Last Admin: 03/03/17 10:52 Dose: 42 mls/hr Mirtazapine (Remeron -) 15 mg PO HS [facility] Last Admin: 03/03/17 22:11 Dose: Not Given Tamsulosin HCl (Flomax -) 0.4 mg PO DAILY@0830 [facility] Last Admin: 03/03/17 08:13 Dose: Not Given A/p 71 year old Gentleman with PMhx of ESRD on HD (MWF), Pancreatic Cysts, Pancreatic insuffiency, CAD, Hypertension, DM who presented with complaints of lethargy, weakness and increasing abd ascities. #AMS/Hypercalcemia etiology appears to be infectious vs. metabolic Corrected Ca is 13.6 -? contribution to AMS expect some improvement with dialysis recheck in AM, if remains > 13 or if AMS now improved can attempt further dialysis to bring levels down start NS at 60cc per hour no bisphonatphates given CKD Restart Sensipar Check PTH #Abd Ascities/Hepatocellular disease Repeat CT showed a large cyst surigcal follow up #ESRD on HD tolerating dialysis well #Leukocytosis r/o occult infection f/u cultures Thank you Will follow Franklyn Frazier DO Problem List - Problems (1) Ascites Code(s): R18.8 - OTHER ASCITES Qualifiers: (2) Weakness Code(s): R53.1 - WEAKNESS (3) Abdominal distention Code(s): R14.0 - ABDOMINAL DISTENSION (GASEOUS) (4) CAD (coronary artery disease) Code(s): I25.10 - ATHSCL HEART DISEASE OF [place] CORONARY ARTERY W/O ANG PCTRS Qualifiers: Coronary Disease-Associated Artery/Lesion type: [place] artery [place] vs. transplanted heart: [place] heart Associated angina: without angina Qualified Code(s): I25.10 - Atherosclerotic heart disease of [place] coronary artery without angina pectoris (5) Chronic pancreatitis Code(s): K86.1 - OTHER CHRONIC PANCREATITIS (6) Diabetes Code(s): E11.9 - TYPE 2 DIABETES MELLITUS WITHOUT COMPLICATIONS Qualifiers: Diabetes mellitus type: type 2 Diabetes mellitus complication status: with kidney complications Diabetes mellitus complication detail: with nephropathy Diabetes mellitus intermediate project manager insulin use: without intermediate project manager use Qualified Code(s): E11.21 - Type 2 diabetes mellitus with diabetic nephropathy; Z79.4 - truck terminal manager (current) use of insulin (7) ESRD (end stage renal disease) on dialysis Code(s): N18.6 - END STAGE RENAL DISEASE Z99.2 - DEPENDENCE ON RENAL DIALYSIS
[2017-03-04] MEDS ORDERED: SODIUM CHLORIDE 1,000 ML IV SCH (14:00)
[2017-03-04] MEDS ORDERED: CINACALCET HCL 30 MG TAB (FP) PO SCH (14:00)
--- NOTE | 2017-03-04 14:16 | PN ---
Progress Note, Physician Chief Complaint: ID Intermittent fevers 100.8 on Ceftriaoxne Appears in NAD - Current Medication List Current Medications: Active Medications Carvedilol (Coreg -) 6.25 mg PO BID [facility] Last Admin: 03/03/17 22:11 Dose: Not Given Ceftriaxone Sodium (Rocephin 1gm Ivpb (Pre-Docked)) 1 gm IVPB DAILY [facility] Last Admin: 03/03/17 14:39 Dose: 1 gm Cinacalcet (Sensipar -) 60 mg PO DAILY [facility] Dextrose/Sodium Chloride (D5-Ns -) 1,000 mls @ 42 mls/hr IV [facility] Last Admin: 03/03/17 10:52 Dose: 42 mls/hr Sodium Chloride (Normal Saline -) 1,000 mls @ 60 mls/hr IV ASDIR [facility] Stop: 03/05/17 13:48 Mirtazapine (Remeron -) 15 mg PO HS [facility] Last Admin: 03/03/17 22:11 Dose: Not Given Tamsulosin HCl (Flomax -) 0.4 mg PO DAILY@0830 [facility] Last Admin: 03/03/17 08:13 Dose: Not Given - Objective Vital Signs: Vital Signs Temperature 98.4 F 03/04/17 09:35 Pulse Rate 80 03/04/17 12:10 Respiratory Rate 18 03/04/17 12:10 Blood Pressure 113/59 03/04/17 12:10 O2 Sat by Pulse Oximetry (%) 97 03/03/17 21:00 Constitutional: Yes: No Distress Neck: Yes: WNL, Supple Cardiovascular: Yes: S1, S2 Respiratory: Yes: WNL, Regular, CTA Bilaterally Gastrointestinal: Yes: Normal Bowel Sounds, Distention Extremities: Yes: Other (AVF) Labs: CBC, BMP 03/04/17 09:40 03/04/17 09:40 INR, PTT INR 1.12 (0.82-1.09) 03/02/17 17:42 Problem List - Problems (1) Abdominal cyst Code(s): K66.8 - OTHER SPECIFIED DISORDERS OF PERITONEUM (2) End stage renal disease Code(s): N18.6 - END STAGE RENAL DISEASE Assessment/Plan Microbiology 03/03/17 10:45 Blood - Peripheral Venous Blood Culture - Preliminary NO GROWTH OBTAINED AFTER 24 HOURS, INCUBATION TO CONTINUE FOR 4 DAYS. 03/03/17 10:45 Blood - Peripheral Venous Blood Culture - Preliminary NO GROWTH OBTAINED AFTER 24 HOURS, INCUBATION TO CONTINUE FOR 4 DAYS. Laboratory Tests 03/02/17 03/04/17 03/04/17 17:42 09:40 09:40 WBC 14.1 H Hgb 9.6 L Hct 30.9 L Plt Count 329 INR 1.12 AST 18 ALT 13 Alkaline Phosphatase 300 H Assessment Huge abd cyst encompassing the entire abd unknown etiolgy Plan While I have senst Echinococcal serology this seems like to large a cyst in to short a period of time to be Echinococcal disease. The fever is concern as it raises the possibility of the fluid being infected. HE is Ceftriaxone with neg blood cultures Discussed with Dr Lam again today Surgical consult pending Echinococcal serology was ordered will take a lot of time Quant gold Would stop Ceftriaxone not sure what we are treating at this point Cristino PURCELL
[2017-03-04] MEDS ORDERED: PT OWN MED DRAWER 7, Y5N ONE (14:43)
[2017-03-04] MEDS: CARVEDILOL 6.25 MG TABLET (FP) PO SCH ×2 (14:44→21:30)
[2017-03-04] MEDS: TAMSULOSIN HCL 0.4 MG CAP.ER.24H (FP) PO SCH (14:45)
[2017-03-04] MEDS: DEXTROSE 5%-NORMAL SALINE 1,000 ML IV SCH (14:45)
--- NOTE | 2017-03-04 15:17 | DS ---
Physical Examination Vital Signs: Vital Signs Temperature 98.2 F 03/04/17 14:00 Pulse Rate 90 03/04/17 14:00 Respiratory Rate 18 03/04/17 14:00 Blood Pressure 142/66 03/04/17 14:00 O2 Sat by Pulse Oximetry (%) 97 03/03/17 21:00 Findings/Remarks: transferring to [facility] for tertiary care Constitutional: Yes: Mild Distress Eyes: Yes: WNL HENT: Yes: WNL Neck: Yes: WNL Cardiovascular: Yes: WNL Respiratory: Yes: WNL Gastrointestinal: Yes: Ascites Renal/: Yes: WNL Musculoskeletal: Yes: Muscle Weakness Extremities: Yes: Other Edema: Yes Edema: LLE: 1+, RLE: 1+ Peripheral Pulses WNL: Yes Integumentary: Yes: WNL Wound/Incision: Yes: Clean/Dry Neurological: Yes: Confusion ...Motor Strength: RLE Psychiatric: Yes: Other Labs: CBC, BMP 03/04/17 09:40 03/04/17 09:40 Discharge Summary Reason For Visit: ASCITES Current Active Problems Abdominal cyst (Acute) Altered mental status (Acute) Ascites (Acute) End stage renal disease (Acute) Shortness of breath (Acute) Weakness (Acute) Procedures: Principal: ct abd Other Procedures: labs/hd Hospital Course: admitted for abd ascites, ct scan found to have cystic mass in right side of abdomen, IR attempted to drain howevere they felt patient will need a tertiary center because high risk. - Instructions Diet, Activity, Other Instructions: renal diabetic diet Referrals: Triston Oliver MD [Primary Care Provider] - Disposition: TRANSFER ACUTE CARE/OTHER HOSP - Home Medications Comprehensive Discharge Medication List: Ambulatory Orders Aspirin [ASA -] 81 mg PO Q2D 08/10/16 Tamsulosin HCl [Flomax -] 0.4 mg PO DAILY 08/10/16 Omeprazole 20 mg PO DAILY 11/29/16 Allopurinol [Zyloprim -] 100 mg PO DAILY 03/02/17 Atorvastatin Ca [Lipitor] 20 mg PO HS 03/02/17 Carvedilol [Coreg -] 6.25 mg PO DAILY 03/02/17 Cinacalcet HCl [Sensipar] 60 mg PO DAILY 03/02/17 Linaclotide [Linzess] 145 mcg PO DAILY 03/02/17 Lipase/Protease/Amylase [Zenpep Dr 25,000 Units Capsule] 1 each PO TID 03/02/17 Mirtazapine [Remeron -] 15 mg PO HS 03/02/17 Multivit-Min/FA/Lycopen/Lutein [Centrum Silver Tablet] 1 each PO DAILY 03/02/17 Sevelamer Carbonate [Renvela] 800 mg PO TID 03/02/17 Torsemide [Demadex -] 40 mg PO BID 03/02/17
[2017-03-04] MEDS: cefTRIAXone 1 GM/50 ML BAG (PRE-DOCKED) IVPB SCH (18:36)
[2017-03-04 21:16] VITALS: BP 147/65; PULSE 100; TEMP 98
[2017-03-04] MEDS: MIRTAZAPINE 15 MG TABLET (FP) PO SCH (21:30)
[2017-03-06 06:36] LABS: HEP B SURFACE AB Reactive (.)
== END 2017-03-04 22:12 | disposition short-term general hospital (02) | DRG 393 ==
LOC: JER 16:43 → JERBED 18:12 → J5S 21:23
PROVIDERS: ADMIT Family Medicine; ATTEND Family Medicine
PROC: 5A1D00Z (ICD-10-PCS; principal; 2017-03-04)
DX: K66.8 Other specified disorders of peritoneum (principal); N18.6 End stage renal disease; R18.8 Other ascites; I12.0 Hypertensive chronic kidney disease with stage 5 chronic kidney disease or end stage renal disease; K86.2 Cyst of pancreas; E11.22 Type 2 diabetes mellitus with diabetic chronic kidney disease; Z99.2 Dependence on renal dialysis; I25.10 Atherosclerotic heart disease of native coronary artery without angina pectoris; E11.21 Type 2 diabetes mellitus with diabetic nephropathy; R14.0 Abdominal distension (gaseous); R41.82 Altered mental status, unspecified; E78.00 Pure hypercholesterolemia, unspecified; D72.828 Other elevated white blood cell count; J44.9 Chronic obstructive pulmonary disease, unspecified; R91.8 Other nonspecific abnormal finding of lung field; E83.52 Hypercalcemia; K86.89 Other specified diseases of pancreas; K76.89 Other specified diseases of liver; I27.2 Other secondary pulmonary hypertension; R50.9 Fever, unspecified; Z86.73 Personal history of transient ischemic attack (TIA), and cerebral infarction without residual deficits; Z87.891 Personal history of nicotine dependence; Z79.4 Long term (current) use of insulin
CPT/HCPCS: 36415; 70450-TC; 71010-TC; 74000-TC; 74178-TC; 76700-TC; 80053; 82140; 83970; 84100; 85025; 85027; 85610; 86140; 86480; 86704; 86706; 86708; 86803; 87040; 87340; 93005; 93010; 99285-25; J0885